=== PATIENT | male | born 1955 | race Caucasian/White ===

== ENCOUNTER → 2020-01-13 14:51 | Outpatient (BNVA) | payer OTHER, SELFPAY | PROVIDERS: PCP Internal Medicine; Visit Provider Internal Medicine Gastroenterology | DX: K58.9 Irritable bowel syndrome, unspecified (principal); K21.9 Gastro-esophageal reflux disease without esophagitis; K59.09 Other constipation; R11.0 Nausea; R63.4 Abnormal weight loss | CPT/HCPCS: 99212 ==

== ENCOUNTER → 2020-06-07 10:33 | Outpatient (BNVA) | payer OTHER, SELFPAY | PROVIDERS: PCP Internal Medicine; Visit Provider Internal Medicine Gastroenterology ==

== ENCOUNTER 2020-06-18 12:31 | Outpatient (REF) | payer MEDICARE, SELFPAY ==
[2020-06-18 13:51] LABS: MANUAL DIFF FLAG NO
[2020-06-18 13:59] LABS: Basophils Absolute Auto 0.1 X10*3/uL (0.0-0.2); Basophils Percent Auto 0.7 % (0-2); Eosinophils Absolute Auto 0.2 X10*3/uL (0.0-0.4); Eosinophils Percent Auto 1.8 % (0-4); Hematocrit 41.7 % (42-52); Imm Gran Abs Auto 0.06 X10*3/uL (0.00-0.03); Imm Gran Pct Auto 0.5 % (0.0-0.4); Lymphocytes Absolute Auto 2.8 X10*3/uL (1.2-4.9); Mean Corpuscular HGB Conc 33.6 g/dl (31.0-36.0); Mean Corpuscular Hemoglobin 29.9 pg (27.0-33.0); Mean Corpuscular Volume 89.1 fL (80-98); Mean Platelet Volume 9.9 fL (9.4-12.4); Monocytes Absolute Auto 0.9 X10*3/uL (0.1-1.2); Monocytes Percent Auto 7.8 % (2-11); Neutrophils Absolute Auto 7.6 X10*3/uL (2.0-8.3); Neutrophils Percent Auto 65.2 % (45-73); Platelet Count 347 X10*3/uL (160-400); Red Blood Count 4.68 X10*6/uL (4.60-5.80); Red Cell Distribution Width 12.5 % (11.0-16.0); White Blood Count 11.6 X10*3/uL (4.8-10.8)
[2020-06-18 14:15] LABS: Alanine Aminotransferase 16 U/L (0-40); Albumin Level 4.3 g/dL (3.5-5.0); Alkaline Phosphatase 96 U/L (39-117); Anion Gap 14 (12-20); Aspartate Amino Transferase 15 U/L (5-37); Bilirubin Total 0.3 mg/dL (0.0-1.0); Blood Urea Nitrogen 10 mg/dL (9-16); Calcium 9.5 mg/dL (8.4-10.2); Carbon Dioxide 26 mmol/L (22-29); Chloride 103 mmol/L (96-108); Estimated Glomerular Filt Rate > 60; Glucose Fasting 144 mg/dL (60-99); Lipase 20 U/L (8-78); Potassium 4.4 mmol/L (3.3-5.1); Sodium 139 mmol/L (135-145)
[2020-06-18 14:37] LABS: Ferritin 77 ng/mL (20-250)
== END 2020-06-18 12:32 | disposition home or self-care (01) ==
LOC: HO.10HDL 12:31
PROVIDERS: Visit Provider Internal Medicine Gastroenterology
DX: D64.9 Anemia, unspecified (principal)
CPT/HCPCS: 36415; 80053; 82728; 83690; 85025

== ENCOUNTER 2020-07-25 12:04 | Outpatient (REF) | payer MEDICARE, MEDICAID, SELFPAY ==
[2020-07-25 13:57] LABS: MANUAL DIFF FLAG NO
[2020-07-25 14:05] LABS: Basophils Absolute Auto 0.1 X10*3/uL (0.0-0.2); Basophils Percent Auto 0.6 % (0-2); Eosinophils Absolute Auto 0.2 X10*3/uL (0.0-0.4); Eosinophils Percent Auto 1.8 % (0-4); Hematocrit 47.4 % (42-52); Hemoglobin 15.4 g/dl (14.0-18.0); Imm Gran Abs Auto 0.04 X10*3/uL (0.00-0.03); Imm Gran Pct Auto 0.4 % (0.0-0.4); Lymphocytes Absolute Auto 2.3 X10*3/uL (1.2-4.9); Lymphocytes Percent Auto 23.6 % (20-40); Mean Corpuscular HGB Conc 32.5 g/dl (31.0-36.0); Mean Corpuscular Hemoglobin 29.6 pg (27.0-33.0); Mean Corpuscular Volume 91.2 fL (80-98); Mean Platelet Volume 9.9 fL (9.4-12.4); Monocytes Absolute Auto 0.7 X10*3/uL (0.1-1.2); Neutrophils Absolute Auto 6.5 X10*3/uL (2.0-8.3); Neutrophils Percent Auto 66.6 % (45-73); Platelet Count 324 X10*3/uL (160-400); Red Cell Distribution Width 13.3 % (11.0-16.0); White Blood Count 9.7 X10*3/uL (4.8-10.8)
[2020-07-25 14:26] LABS: Estimated Average Glucose 194 mg/dL; Hemoglobin A1c % 8.4 %
[2020-07-25 14:35] LABS: Alanine Aminotransferase 13 U/L (0-40); Albumin Level 4.6 g/dL (3.5-5.0); Alkaline Phosphatase 94 U/L (39-117); Anion Gap 16 (12-20); Aspartate Amino Transferase 12 U/L (5-37); Bilirubin Total 0.4 mg/dL (0.0-1.0); Blood Urea Nitrogen 14 mg/dL (9-16); Calcium 10.3 mg/dL (8.4-10.2); Carbon Dioxide 26 mmol/L (22-29); Chloride 102 mmol/L (96-108); Cholesterol 192 mg/dL; Estimated Glomerular Filt Rate > 60; Glucose Random 143 mg/dL (60-115); HDL Cholesterol 32 mg/dL; LDL Cholesterol Calculated 118 mg/dl; Potassium 4.4 mmol/L (3.3-5.1); Sodium 140 mmol/L (135-145); Total Protein 7.3 g/dL (6.5-8.0); Triglycerides 214 mg/dL
[2020-07-25 14:44] LABS: Creatinine Urine 211.15 mg/dL; Microalbum/Creatinine Ratio Ur 4.7 ug/mg cr
[2020-07-25 14:55] LABS: Folate 12.5 ng/mL (> or = 4.0); Free T4 (Free Thyroxine) 1.02 ng/dL (0.71-1.85); Prostate Specific Antigen Scr 1.08 ng/mL (<0.05-4.0); Thyroid Stimulating Hormone 0.55 uIU/mL (0.32-4.0); Vitamin B12 430 pg/mL (200-900)
== END 2020-07-25 12:05 | disposition home or self-care (01) ==
LOC: HO.10HDL 12:04
PROVIDERS: Visit Provider Internal Medicine
DX: Z12.5 Encounter for screening for malignant neoplasm of prostate (principal); E11.65 Type 2 diabetes mellitus with hyperglycemia; N40.0 Benign prostatic hyperplasia without lower urinary tract symptoms; E78.00 Pure hypercholesterolemia, unspecified
CPT/HCPCS: 36415; 80053; 80061; 82043; 82607; 82746; 83036; 84153; 84439; 84443; 85025

== ENCOUNTER → 2020-08-30 09:44 | Outpatient (BNVA) | payer MEDICARE, MEDICAID, SELFPAY | PROVIDERS: PCP Internal Medicine; Visit Provider Internal Medicine Gastroenterology | DX: Z13.89 Encounter for screening for other disorder (principal) | CPT/HCPCS: Q3014 ==

== ENCOUNTER → 2020-10-29 10:27 | Outpatient (BNVA) | payer MEDICARE, MEDICAID, SELFPAY | PROVIDERS: PCP Internal Medicine; Visit Provider Internal Medicine Gastroenterology | DX: K59.09 Other constipation (principal); K21.9 Gastro-esophageal reflux disease without esophagitis; K58.9 Irritable bowel syndrome, unspecified; D64.9 Anemia, unspecified; R63.4 Abnormal weight loss; Z86.010 Personal history of colon polyps | CPT/HCPCS: Q3014 ==

== ENCOUNTER 2021-02-05 14:30 | Emergency (ER) | payer MEDICARE, MEDICAID, SELFPAY ==
--- NOTE | ~2021-02-05 | CT_ITS ---
EXAMINATION: CT ABDOMEN AND PELVIS WITHOUT CONTRAST CLINICAL INFORMATION: Chronic abdominal pain, diarrhea, rule out colitis COMPARISON: 09/14/2019 TECHNIQUE: Multidetector volumetric imaging was performed from the superior aspect of the liver through the pubic symphysis. Sagittal and coronal reformatted images were obtained on the technologist's workstation. This CT examination was performed using dose optimization techniques as appropriate, variously including the following: *Automated exposure control *Adjustment of mA and/or kV according to patient size (this includes techniques or standardized protocols for targeted exams where dose is matched to indication/reason for exam; i.e. extremities or head) *Use of iterative reconstruction technique DLP: 1118 mGy-cm FINDINGS: LUNG BASES: The visualized lung bases are unremarkable. Coronary artery calcifications are present. LIVER, GALLBLADDER, AND BILIARY TREE: The liver is normal in size, shape, and attenuation. No focal hepatic lesion or biliary ductal dilatation is present. Patient is status post cholecystectomy. PANCREAS: Unremarkable. SPLEEN: Unremarkable. ADRENAL GLANDS: Unremarkable. KIDNEYS AND URETERS: The kidneys are normal in size, shape, and attenuation. No hydronephrosis, hydroureter, or calculi seen. Redemonstrated left renal cyst; no follow-up recommended. BLADDER: Unremarkable. GASTROINTESTINAL TRACT: Colonic diverticulosis is noted. The small and large bowel are otherwise unremarkable without evidence of obstruction or wall thickening. The appendix is unremarkable. No free fluid or free air is seen. ABDOMINAL WALL: No significant hernia is appreciated. LYMPH NODES: Normal. VASCULAR: There is atherosclerotic calcification along the aorta and iliac arteries. PELVIC VISCERA: Unremarkable. OSSEOUS STRUCTURES: Multilevel degenerative changes are present, including facet arthropathy of the lumbar spine. CT/CT abdomen pelvis wo con IMPRESSION: 1. No acute findings identified in the abdomen/pelvis. No evidence of colitis. 2. Coronary artery calcifications. Correlation with cardiac risk factors is recommended.
[2021-02-05 14:39] VITALS: BP 136/76; PULSE 98; O2SAT 98
[2021-02-05 16:13] VITALS: BP 111/72; PULSE 110; RESP 18; TEMP 36.8; O2SAT 95; BMI 38.3
[2021-02-05 18:33] LABS: MANUAL DIFF FLAG NO
[2021-02-05 18:38] LABS: Appearance Urine CLEAR; Basophils Absolute Auto 0.1 X10*3/uL (0.0-0.2); Basophils Percent Auto 0.5 % (0-2); Color Urine YELLOW; Eosinophils Absolute Auto 0.1 X10*3/uL (0.0-0.4); Eosinophils Percent Auto 0.6 % (0-4); Glucose Urine UA 500 MG/DL (NEG); Hematocrit 42.7 % (42.0-52.0); Hemoglobin 14.7 g/dl (14.0-18.0); Imm Gran Abs Auto 0.04 X10*3/uL (0.00-0.03); Imm Gran Pct Auto 0.4 % (0.0-0.4); Leukocyte Esterase Urine NEG (NEG); Lymphocytes Absolute Auto 2.2 X10*3/uL (1.2-4.9); Lymphocytes Percent Auto 22.4 % (20-40); Mean Corpuscular HGB Conc 34.4 g/dl (31.0-36.0); Mean Corpuscular Hemoglobin 30.5 pg (27.0-33.0); Mean Corpuscular Volume 88.6 fL (80.0-98.0); Mean Platelet Volume 9.7 fL (9.4-12.4); Monocytes Absolute Auto 0.8 X10*3/uL (0.1-1.2); Neutrophils Absolute Auto 6.6 x10*3/uL (2.0-8.3); Neutrophils Percent Auto 68.1 % (45-73); Nitrite Urine NEG (NEG); Platelet Count 310 X10*3/uL (160-400); Red Blood Count 4.82 X10*6/uL (4.60-5.80); Red Cell Distribution Width 12.5 % (11.0-16.0); Urine Blood NEG (NEG); Urine Ketones NEG (NEG); Urine Protein NEG (NEG-TRACE); White Blood Count 9.7 X10*3/uL (4.8-10.8)
[2021-02-05 18:50] LABS: Alanine Aminotransferase 24 U/L (0-40); Albumin Level 4.4 g/dL (3.5-5.0); Alkaline Phosphatase 91 U/L (39-117); Anion Gap 15 (12-20); Aspartate Amino Transferase 18 U/L (5-37); Bilirubin Total 0.5 mg/dL (0.0-1.0); Blood Urea Nitrogen 16 mg/dL (9-16); Carbon Dioxide 23 mmol/L (22-29); Chloride 102 mmol/L (96-108); Creatinine Clr Calc Pharmacy 90.8; Estimated Glomerular Filt Rate > 60; Glucose Random 208 mg/dL (60-115); Lipase 16 U/L (8-78); Potassium 4.2 mmol/L (3.3-5.1); Sodium 136 mmol/L (135-145); Total Protein 7.1 g/dL (6.5-8.0)
[2021-02-05 19:09] LABS: COVID-19 Test Negative (Negative)
[2021-02-05 21:27] VITALS: BP 130/79; PULSE 91; RESP 14; TEMP 36.3; O2SAT 96
[2021-02-05 21:45] LABS: Glucose, Whole Blood 139 mg/dL (60-115)
--- NOTE | 2021-02-06 01:22 | PC.NURSE ---
PT TO [facility]13 WITH C/O NAUSEA AND YELLOW COLORED STOOL. PT RATING PAIN TO LOWER ABD PAIN AND LOWER BACK PAIN WHICH STARTED 2 MONTHS AGO. AT BEDSIDE WITH PT. LABS OBTAINED WHILE PT IN WR. PT AWAITING FOR FURTHER ORDERS.
--- NOTE | 2021-02-06 01:28 | ED.NAVMDI ---
HPI - Nausea/Vomiting/Diarrhea General Chief complaint: Nausea/Vomiting/Diarrhea Stated complaint: ABD PAIN Time Seen by Provider: 02/06/21 01:20 Source: patient Mode of arrival: ambulatory Limitations: no limitations History of Present Illness HPI Narrative: 65-year-old male came in for evaluation of chronic nausea and nonbloody watery diarrhea. Patient has been evaluated by GI, patient upper and lower endoscopies done last year showed mild gastritis and 10 benign colonic polyps were removed. Otherwise unremarkable studies, patient declined any recent use of antibiotics, no recent travel, no exposure to sick contact. Patient is homeless living at a hotel but declined any recent exposure to bad food. Patient also is complaining of chronic back pain for many years, patient declined any recent trauma or heavy lifting. No fever, no chills. Patient also is complaining of enlarged prostate. Patient was instructed to follow up with his doctors for his chronic conditions. Related Data Previous Rx's Medication Instructions Recorded sennosides 8.6 mg-docusate sodium 1 - 2 tab PO BEDTIME PRN #60 ea 02/28/20 50 mg tablet (Senna Plus) pantoprazole 40 mg tablet,delayed 40 mg PO BID #60 tab 05/13/20 release tamsulosin 0.4 mg capsule 0.4 mg PO DAILY 90 Days #90 cap 05/14/20 lubiprostone 8 mcg capsule 8 mcg PO BID 30 Days #60 cap 06/18/20 (Amitiza) pioglitazone 30 mg tablet 30 mg PO DAILY #90 tab 07/14/20 blood sugar diagnostic (FreeStyle #100 ea 07/16/20 Lite Strips) blood-glucose meter (FreeStyle #1 ea 07/16/20 Lite Meter) lancets 28 gauge (FreeStyle #100 ea 07/16/20 Lancets) atorvastatin 80 mg tablet 80 mg PO DAILY 90 Days #90 tab 08/27/20 semaglutide (Ozempic) 0.25 mg (0.2 mL) SUBCUT QWEEK #1.5 08/27/20 ml bisacodyl 5 mg tablet,delayed 10 mg PO BEDTIME 2 Days #4 tab 08/30/20 release (Dulcolax (bisacodyl)) polyethylene glycol 3350 17 17 g PO BID 7 Days #238 g 08/30/20 gram/dose oral powder (Miralax) famotidine 40 mg tablet 40 mg PO BEDTIME #30 tab 10/15/20 lkazbx-cwiwrvlq-ocmiejh 1 cap PO TID 30 Days #90 cap 11/26/20 3,000-10,000-14,000 unit capsule,delayed rel (Zenpep) dicyclomine 20 mg tablet 20 mg PO .4 times a day PRN 30 11/27/20 Days #120 tab glimepiride 4 mg tablet 4 mg PO QAM #90 tab 11/28/20 lisinopril 30 mg tablet 30 mg PO DAILY 90 Days #90 tab 12/10/20 promethazine 25 mg tablet 25 mg PO TID PRN 30 Days #30 tab 12/10/20 docusate sodium 100 mg capsule 100 mg PO BID #180 cap 12/12/20 (Colace) lorazepam 0.5 mg tablet 0.5 mg PO BID PRN 30 Days #60 tab 12/26/20 polyethylene glycol 3350 17 238 g PO ONCE 1 Days #238 g 01/08/21 gram/dose oral powder (Miralax) psyllium husk 3.4 gram/5.4 gram 1 tbsp PO BID #660 g 01/19/21 oral powder (Metamucil) cholecalciferol (vitamin D3) 25 25 mcg PO DAILY 30 Days #30 cap 01/28/21 mcg (1,000 unit) capsule Allergies Allergy/AdvReac Type Severity Reaction Status Date / Time Iodinated Contrast Media Allergy Intermediate HIVES Verified 02/05/21 16:13 [IV CONTRAST] aspirin [From Percodan] Allergy Unknown Unknown Verified 02/05/21 16:13 codeine [CODEINE] Allergy Unknown DIFFICULTY Verified 02/05/21 16:13 BREATHING metformin Allergy Unknown Diarrhea Verified 02/05/21 16:13 oxycodone [From PERCOCET] Allergy Unknown DIFF Verified 02/05/21 16:13 BREATHING Penicillins [PENICILLINS] Allergy Unknown DIFFICULTY Verified 02/05/21 16:13 BREATHING Review of Systems Review of Systems: All other systems are reviewed and are negative Constitutional: Reports as per HPI and Reports no additional constitutional complaints Eyes: Reports as per HPI and Reports no additional eye complaints Reports system reviewed and no additional complaints, except as documented Cardiovascular: Reports as per HPI and Reports no additional cardiovascular complaints Respiratory: Reports as per HPI and Reports no additional respiratory complaints Gastrointestinal: Reports as per HPI and Reports no additional gastrointestinal complaints Genitourinary: Reports no additional female genitourinary complaints Musculoskeletal: Reports no additional musculoskeletal complaints Skin/Breast: Reports system reviewed and no additional complaints, except as docu Psychiatric: Reports no additional psychiatric complaints Endocrine: Reports no additional endocrine complaints Hematologic/Lymphatic: Reports no additional hematologic/lymphatic complaints Allergic/Immunologic: Reports no additional allergic/immunologic complaints Reports system reviewed and no additional complaints, except as documented and Reports Abnormal speech present COUNT INCLUDES THE [facility] Past Medical History Medical History Anxiety and depression Bilateral arm fractures BPH (benign prostatic hyperplasia) Chronic constipation History of colon polyps History of drug abuse Hypercholesterolemia Hypertension Obesity (BMI 30-39.9) Pulmonary nodule, right Type 2 diabetes mellitus with hyperglycemia Surgical History Hx of colonoscopy (07/06/12) Hx of esophagogastroduodenoscopy (11/18/11) S/P cholecystectomy Family History Family History Father Kidney tumor Heart attack Mother Kidney failure Lung cancer Diabetes CHF (congestive heart failure) Maternal Grandmother Gallbladder gangrene Sister Arthritis High blood pressure High cholesterol Cirrhosis of liver Sister No problems noted. Brother Heart attack High cholesterol Sister CHF (congestive heart failure) Diabetes Social History Social History Household Members: Other Housing: Homeless Housing Other:: Resides at [facility] Alcohol intake: former Patient Tobacco Use Status: Current everyday Tobacco user Tobacco use type: Cigarette Cigarette Packs Per Day: 1 Cigarettes Per Day: 20.0 e-Cigarette/Vaping Use: Never Used Second Hand Smoke Exposure: No Advance Directives: No Advance Directives Information Provided: Yes service: No Current occupational status: retired Physical Exam Vital Signs: Vital Signs: Last Vital Signs Temp 97.4 F 02/05/21 21:27 Pulse 91 02/05/21 21:27 Resp 14 02/05/21 21:27 BP 130/79 02/05/21 21:27 Pulse Ox 96 02/05/21 21:27 Body Mass Index 38.3 vital signs have been reviewed as appeared to be correct. Blood pressure normal. Heart rate normal. Respiration rate normal. Temperature normal. Oxygen saturation normal. Appearance: Alert. Oriented X3. No acute distress. Head: Normal external exam. Normocephalic. Atraumatic. No Steven signs noted. No raccoon eyes noted Eyes: PERRLA. EOMI. Conjunctiva and sclera normal. Eyelids normal. ENT: TM's Normal. Pharynx normal. Uvula midline. Moist mucous membranes. No trismus noted. No drooling noted. No muffled voice noted. Neck: Normal inspection. Neck supple. FROM. No adenopathy. Thyroid Normal. No meningeal signs. No neck mass noted. CVS: Normal heart rate and rhythm. Heart sound normal. No murmurs noted. Pulses normal throughout. Respiratory: No respiratory distress. Painless inspiration. Breath sounds normal. No wheezes/rales/rhonchi noted. Chest nontender. No accessory muscle usage noted or decreased air movement noted. Abdomen: Soft and nontender. Bowel sounds normal in all 4 quadrants. No distention noted. No organomegaly noted. No visible injury noted. Back: No CVA tenderness. Full range of motion noted. Skin: Skin warm and dry. Normal skin color. Normal skin turgor. No rashes/lesions/lacerations noted. Extremities: No lower extremity edema. Extremities exhibit normal range of motion. Extremities nontender. Neuro: Oriented X 3. Cranial nerve exam: II-XII are grossly intact No motor deficit. No sensory deficit. Reflexes normal. Course Course Course Narrative: assessment and plan. 65-year-old male came in for multiple medical chronic conditions, patient had a CT scan of the abdomen pelvis which was unremarkable. Labs are unremarkable. Patient was reassured, patient was instructed to follow up with his PCP /GI /his doctors To address his chronic issues. MDM - Nausea/Vomiting/Diarrhea Medical Records Attestation: I reviewed the patient's medical records. Lab Data Attestation: I reviewed the patient's lab results. Result diagrams: 02/05/21 18:27 02/05/21 18:27 Labs: Lab Results 02/05/21 02/05/21 02/05/21 Range/Units 18:27 18:27 18:27 WBC 9.7 (4.8-10.8) X10*3/uL RBC 4.82 (4.60-5.80) X10*6/uL Hgb 14.7 (14.0-18.0) g/dl Hct 42.7 (42.0-52.0) % MCV 88.6 (80.0-98.0) fL MCH 30.5 (27.0-33.0) pg MCHC 34.4 (31.0-36.0) g/dl RDW 12.5 (11.0-16.0) % Plt Count 310 (160-400) X10*3/uL MPV 9.7 (9.4-12.4) fL Immature Gran % (Auto) 0.4 (0.0-0.4) % Neut % (Auto) 68.1 (45-73) % Lymph % (Auto) 22.4 (20-40) % [place] % (Auto) 8.0 (2-11) % Eos % (Auto) 0.6 (0-4) % Baso % (Auto) 0.5 (0-2) % Lymph # (Auto) 2.2 (1.2-4.9) X10*3/uL [place] # (Auto) 0.8 (0.1-1.2) X10*3/uL Eos # (Auto) 0.1 (0.0-0.4) X10*3/uL Baso # (Auto) 0.1 (0.0-0.2) X10*3/uL Abs Immat Gran (auto) 0.04 H (0.00-0.03) X10*3/uL Absolute Neuts (auto) 6.6 (2.0-8.3) x10*3/uL Absolute Nucleated RBC 0.000 (0.0-0.012) X10*3/uL Nucleated RBC % (auto) 0.0 (0.0-0.2) /100WBC Sodium 136 (135-145) mmol/L Potassium 4.2 (3.3-5.1) mmol/L Chloride 102 (96-108) mmol/L Carbon Dioxide 23 (22-29) mmol/L Anion Gap 15 (12-20) BUN 16 (9-16) mg/dL Creatinine 1.09 (0.5-1.4) mg/dL Estim Creat Clear Calc 90.8 Estimated GFR > 60 POC Glucose (60-115) mg/dL Random Glucose 208 H D (60-115) mg/dL Calcium 10.0 (8.4-10.2) mg/dL Total Bilirubin 0.5 (0.0-1.0) mg/dL AST 18 D (5-37) U/L ALT 24 (0-40) U/L Alkaline Phosphatase 91 (39-117) U/L Total Protein 7.1 (6.5-8.0) g/dL Albumin 4.4 (3.5-5.0) g/dL Lipase 16 (8-78) U/L Prostate Specific Ag 1.00 (<0.05-4.0) ng/mL Urine Color Urine Appearance Urine pH (5.0-8.0) Ur Specific [place] (1.005-1.025) Urine Protein (NEG-TRACE) MG/DL Urine Glucose (UA) (NEG) MG/DL Urine Ketones (NEG) MG/DL Urine Blood (NEG) Urine Nitrite (NEG) Ur Leukocyte Esterase (NEG) COVID-19 (CANDICE) Negative (Negative) COVID-19 Clin Com See Note 02/05/21 02/05/21 Range/Units 18:27 21:39 WBC (4.8-10.8) X10*3/uL RBC (4.60-5.80) X10*6/uL Hgb (14.0-18.0) g/dl Hct (42.0-52.0) % MCV (80.0-98.0) fL MCH (27.0-33.0) pg MCHC (31.0-36.0) g/dl RDW (11.0-16.0) % Plt Count (160-400) X10*3/uL MPV (9.4-12.4) fL Immature Gran % (Auto) (0.0-0.4) % Neut % (Auto) (45-73) % Lymph % (Auto) (20-40) % [place] % (Auto) (2-11) % Eos % (Auto) (0-4) % Baso % (Auto) (0-2) % Lymph # (Auto) (1.2-4.9) X10*3/uL [place] # (Auto) (0.1-1.2) X10*3/uL Eos # (Auto) (0.0-0.4) X10*3/uL Baso # (Auto) (0.0-0.2) X10*3/uL Abs Immat Gran (auto) (0.00-0.03) X10*3/uL Absolute Neuts (auto) (2.0-8.3) x10*3/uL Absolute Nucleated RBC (0.0-0.012) X10*3/uL Nucleated RBC % (auto) (0.0-0.2) /100WBC Sodium (135-145) mmol/L Potassium (3.3-5.1) mmol/L Chloride (96-108) mmol/L Carbon Dioxide (22-29) mmol/L Anion Gap (12-20) BUN (9-16) mg/dL Creatinine (0.5-1.4) mg/dL Estim Creat Clear Calc Estimated GFR POC Glucose 139 H (60-115) mg/dL Random Glucose (60-115) mg/dL Calcium (8.4-10.2) mg/dL Total Bilirubin (0.0-1.0) mg/dL AST (5-37) U/L ALT (0-40) U/L Alkaline Phosphatase (39-117) U/L Total Protein (6.5-8.0) g/dL Albumin (3.5-5.0) g/dL Lipase (8-78) U/L Prostate Specific Ag (<0.05-4.0) ng/mL Urine Color YELLOW Urine Appearance CLEAR Urine pH 6.0 (5.0-8.0) Ur Specific [place] 1.020 (1.005-1.025) Urine Protein NEG (NEG-TRACE) MG/DL Urine Glucose (UA) 500 H (NEG) MG/DL Urine Ketones NEG (NEG) MG/DL Urine Blood NEG (NEG) Urine Nitrite NEG (NEG) Ur Leukocyte Esterase NEG (NEG) COVID-19 (CANDICE) (Negative) COVID-19 Clin Com Imaging Data CT scan - abdomen: Radiologist's impression: 1.? No acute findings identified in the abdomen/pelvis. No evidence of colitis. 2.? Coronary artery calcifications. Correlation with cardiac risk factors is recommended. Discharge Plan Discharge Clinical Impression: Chronic diarrhea, Chronic back pain Patient Disposition: Home, Self-Care Instructions: Back Pain (ED) Additional Instructions: you need to call your PCP/ web marketing specialist/ urologist doctors and make an appointment to address all your chronic Health conditions. Prescriptions: No Action sennosides-docusate sodium [Senna Plus] 8.6-50 mg tablet 1 - 2 tab PO BEDTIME PRN (Reason: constipation) Qty: 60 RF: 5 pantoprazole 40 mg tablet,delayed release (DR/EC) 40 mg PO BID Qty: 60 RF: 5 tamsulosin 0.4 mg capsule 0.4 mg PO DAILY 90 Days Qty: 90 RF: 2 lubiprostone [Amitiza] 8 mcg capsule 8 mcg PO BID 30 Days Qty: 60 RF: 3 pioglitazone 30 mg tablet 30 mg PO DAILY Qty: 90 RF: 1 famotidine 40 mg tablet 40 mg PO BEDTIME Qty: 30 RF: 3 Zenpep 3,000-10,000 -14,000-unit capsule,delayed release(DR/EC) 1 cap PO TID 30 Days Qty: 90 RF: 3 dicyclomine 20 mg tablet 20 mg PO .4 times a day PRN30 Days Qty: 120 RF: 2 glimepiride 4 mg tablet 4 mg PO QAM Qty: 90 RF: 2 docusate sodium [Colace] 100 mg capsule 100 mg PO BID Qty: 180 RF: 2 lorazepam 0.5 mg tablet 0.5 mg PO BID PRN (Reason: anxiety) 30 Days Qty: 60 RF: 1 polyethylene glycol 3350 [Miralax] 17 gram/dose powder 238 g PO ONCE 1 Days Qty: 238 RF: 0 Metamucil 3.4 gram/5.4 gram powder 1 tbsp PO BID Qty: 660 RF: 1 cholecalciferol (vitamin D3) 25 mcg (1,000 unit) capsule 25 mcg PO DAILY 30 Days Qty: 30 RF: 3 atorvastatin 80 mg tablet 80 mg PO DAILY 90 Days Qty: 90 RF: 3 Ozempic 0.25 mg or 0.5 mg(2 mg/1.5 mL) pen injector 0.25 mg subcut QWEEK Qty: 1.5 RF: 1 (DME) FreeStyle Lite Strips Strip See Rx Instructions .ROUTE .MEDSUPPLY Qty: 100 RF: 3 (DME) blood-glucose meter [FreeStyle Lite Meter] Kit See Rx Instructions .ROUTE .MEDSUPPLY Qty: 1 RF: 0 (DME) lancets [FreeStyle Lancets] 28 gauge misc See Rx Instructions .ROUTE .MEDSUPPLY Qty: 100 RF: 3 lisinopril 30 mg tablet 30 mg PO DAILY 90 Days Qty: 90 RF: 2 promethazine 25 mg tablet 25 mg PO TID PRN (Reason: nausea and vomiting) 30 Days Qty: 30 RF: 0 polyethylene glycol 3350 [Miralax] 17 gram/dose powder 17 g PO BID 7 Days Qty: 238 RF: 1 bisacodyl [Dulcolax (bisacodyl)] 5 mg tablet,delayed release (DR/EC) 10 mg PO BEDTIME 2 Days Qty: 4 RF: 0
--- NOTE | 2021-02-06 02:28 | PC.NURSE ---
ADDED A PSA TO PT'S LABS. LABS NOTIFIED AND HAS ENOUGH BLOOD FOR LAB TEST.
== END 2021-02-06 04:19 | disposition home or self-care (01) ==
PROVIDERS: Emergency Provider Emergency Medicine
DX: R10.9 Unspecified abdominal pain (principal); R11.2 Nausea with vomiting, unspecified; M54.50 Low back pain, unspecified; R19.7 Diarrhea, unspecified; F17.210 Nicotine dependence, cigarettes, uncomplicated; Z20.822 Contact with and (suspected) exposure to COVID-19; Z79.899 Other long term (current) drug therapy; Z71.6 Tobacco abuse counseling
CPT/HCPCS: 36415; 74176; 80053; 81003; 82947; 83690; 84153; 85025; 87635; 99283; 99284

== ENCOUNTER → 2021-02-14 14:57 | Outpatient (BNVA) | payer MEDICARE, MEDICAID, SELFPAY | PROVIDERS: Visit Provider Internal Medicine Gastroenterology | DX: K58.9 Irritable bowel syndrome, unspecified (principal); K21.9 Gastro-esophageal reflux disease without esophagitis; K59.09 Other constipation; R63.4 Abnormal weight loss; Z86.010 Personal history of colon polyps | CPT/HCPCS: 99212 ==

== ENCOUNTER 2021-05-16 11:19 | Outpatient (REF) | payer OTHER, SELFPAY ==
[2021-05-16 13:42] LABS: MANUAL DIFF FLAG NO
[2021-05-16 13:47] LABS: Basophils Absolute Auto 0.1 X10*3/uL (0.0-0.2); Basophils Percent Auto 0.8 % (0-2); Eosinophils Absolute Auto 0.2 X10*3/uL (0.0-0.4); Eosinophils Percent Auto 3.1 % (0-4); Hemoglobin 13.4 g/dl (14.0-18.0); Imm Gran Abs Auto 0.02 X10*3/uL (0.00-0.03); Imm Gran Pct Auto 0.3 % (0.0-0.4); Lymphocytes Absolute Auto 2.1 X10*3/uL (1.2-4.9); Lymphocytes Percent Auto 27.7 % (20-40); Mean Corpuscular HGB Conc 31.9 g/dl (31.0-36.0); Mean Corpuscular Hemoglobin 28.8 pg (27.0-33.0); Mean Corpuscular Volume 90.1 fL (80.0-98.0); Mean Platelet Volume 9.7 fL (9.4-12.4); Monocytes Absolute Auto 0.6 X10*3/uL (0.1-1.2); Monocytes Percent Auto 7.8 % (2-11); Neutrophils Absolute Auto 4.5 x10*3/uL (2.0-8.3); Neutrophils Percent Auto 60.3 % (45-73); Platelet Count 347 X10*3/uL (160-400); Red Blood Count 4.66 X10*6/uL (4.60-5.80); Red Cell Distribution Width 14.6 % (11.0-16.0); White Blood Count 7.4 X10*3/uL (4.8-10.8)
[2021-05-16 13:51] LABS: Appearance Urine CLEAR; Color Urine YELLOW; Glucose Urine UA NEG (NEG); Leukocyte Esterase Urine NEG (NEG); Nitrite Urine NEG (NEG); Specific Gravity - Urine >= 1.030 (1.005-1.025); Urine Blood NEG (NEG); Urine Ketones NEG (NEG); Urine Protein NEG (NEG-TRACE)
[2021-05-16 13:57] LABS: Alanine Aminotransferase 14 U/L (0-40); Albumin Level 4.2 g/dL (3.5-5.0); Alkaline Phosphatase 83 U/L (39-117); Anion Gap 14 (12-20); Aspartate Amino Transferase 14 U/L (5-37); Bilirubin Total 0.4 mg/dL (0.0-1.0); Blood Urea Nitrogen 15 mg/dL (9-16); Calcium 9.7 mg/dL (8.4-10.2); Carbon Dioxide 27 mmol/L (22-29); Chloride 105 mmol/L (96-108); Cholesterol 177 mg/dL; Estimated Glomerular Filt Rate > 60; Glucose Random 134 mg/dL (60-115); HDL Cholesterol 42 mg/dL; LDL Cholesterol Calculated 107 mg/dl; Magnesium 1.5 mg/dL (1.6-2.6); Phosphorus 3.3 mg/dL (2.7-4.5); Potassium 4.6 mmol/L (3.3-5.1); Sodium 141 mmol/L (135-145); Total Protein 6.8 g/dL (6.5-8.0); Triglycerides 141 mg/dL
[2021-05-16 14:04] LABS: Estimated Average Glucose 163 mg/dL; Hemoglobin A1c % 7.3 %
[2021-05-16 14:18] LABS: Creatinine Urine 150.86 mg/dL
[2021-05-16 14:20] LABS: Thyroid Stimulating Hormone 0.62 uIU/mL (0.32-4.0)
[2021-05-16 14:23] LABS: Free T4 (Free Thyroxine) 0.84 ng/dL (0.71-1.85)
== END 2021-05-16 11:20 | disposition home or self-care (01) ==
LOC: HO.10HDL 11:19
PROVIDERS: Nurse Practitioner Family; Visit Provider Internal Medicine
DX: E78.00 Pure hypercholesterolemia, unspecified (principal); E11.65 Type 2 diabetes mellitus with hyperglycemia; N40.0 Benign prostatic hyperplasia without lower urinary tract symptoms; I10 Essential (primary) hypertension; Z86.16 Personal history of COVID-19; Z12.5 Encounter for screening for malignant neoplasm of prostate
CPT/HCPCS: 36415; 80053; 80061; 81003; 83036; 83735; 84100; 84153; 84439; 84443; 85025

== ENCOUNTER 2021-06-17 10:59 | Day surgery (SDC) | payer OTHER, SELFPAY ==
[2021-06-13 16:35] VITALS: BMI 38.3
--- NOTE | 2021-06-14 13:15 | P.CONAN_ITS ---
Documented by User: Melba Mcbride NP 06/14/21 13:17 HPI - Anesthesia Eval Consult details Narrative: 65yo M for Upper Endoscopy and Colonoscopy *Multiple Med Allergies* [facility] Active Problems Active Problems: All Active Problems (Updated 05/19/21 @ 23:22 by Randi De Luna, [facility]) Headache (Acute) History of COVID-19 (Acute ~02/27/21) Generalized anxiety disorder (Acute) Homeless (Acute) Vitamin D deficiency (Acute) Anemia (Acute) Flank pain (Acute) History of colon polyps (Acute) BPH (benign prostatic hyperplasia) (Acute) Hypercholesterolemia (Acute) Type 2 diabetes mellitus with hyperglycemia (Acute) Obesity (BMI 30-39.9) (Acute) Hypertension (Acute) Weight loss, unintentional (Acute) Tobacco abuse (Acute) Low back pain (Acute) Cervical spondylosis (Acute) IBS (irritable bowel syndrome) (Acute) GERD (gastroesophageal reflux disease) (Acute) Chronic constipation (Acute) Past Medical History Medical History Anxiety and depression Bilateral arm fractures BPH (benign prostatic hyperplasia) Chronic constipation History of colon polyps History of drug abuse Hypercholesterolemia Hypertension Obesity (BMI 30-39.9) Pulmonary nodule, right Type 2 diabetes mellitus with hyperglycemia Family History Family History Father Kidney tumor Heart attack Mother Kidney failure Lung cancer Diabetes CHF (congestive heart failure) Maternal Grandmother Gallbladder gangrene Sister Arthritis High blood pressure High cholesterol Cirrhosis of liver Sister No problems noted. Brother Heart attack High cholesterol Sister CHF (congestive heart failure) Diabetes Surgical History Surgical History Hx of colonoscopy (07/06/12) Hx of esophagogastroduodenoscopy (11/18/11) S/P cholecystectomy Social History Social History Household Members: Other Housing: Homeless Housing Other:: Resides at [facility] Alcohol intake: former Patient Tobacco Use Status: Current everyday Tobacco user Tobacco use type: Cigarette Cigarette Packs Per Day: 1 Cigarettes Per Day: 20.0 e-Cigarette/Vaping Use: Never Used Second Hand Smoke Exposure: No Use of substances other than those prescribed or required for medical reasons: No Substance Use Type Other:: former - quit alcohol and drugs in year 1999 Are you DNR?: No Advance Directives: No Advance Directives Information Provided: Yes service: No Current occupational status: retired Cognitive needs: No Hearing needs: No Vision needs: Yes (reading glasses) Meds Allergies Allergy/AdvReac Type Severity Reaction Status Date / Time Iodinated Contrast Media Allergy Intermediate HIVES Verified 05/20/21 16:54 [IV CONTRAST] aspirin [From Percodan] Allergy Unknown Unknown Verified 05/20/21 16:54 codeine [CODEINE] Allergy Unknown DIFFICULTY Verified 05/20/21 16:54 BREATHING metformin Allergy Unknown Diarrhea Verified 05/20/21 16:54 oxycodone [From PERCOCET] Allergy Unknown DIFF Verified 05/20/21 16:54 BREATHING Penicillins [PENICILLINS] Allergy Unknown DIFFICULTY Verified 05/20/21 16:54 BREATHING Exam Exam Date and Time: June 14, 2021 1315 Height,Weight and Vital Signs: Height 5 ft 11 in Weight 124.738 kg Assessment and Plan Assessment Anesthesia Assessment: Chart Reviewed Documented by User: Kaycee Perdomo MD 06/17/21 11:36 [facility] Past Medical History Medical History Anxiety and depression Bilateral arm fractures BPH (benign prostatic hyperplasia) Chronic constipation History of colon polyps History of drug abuse Hypercholesterolemia Hypertension Obesity (BMI 30-39.9) Pulmonary nodule, right Type 2 diabetes mellitus with hyperglycemia Family History Family History Father Kidney tumor Heart attack Mother Kidney failure Lung cancer Diabetes CHF (congestive heart failure) Maternal Grandmother Gallbladder gangrene Sister Arthritis High blood pressure High cholesterol Cirrhosis of liver Sister No problems noted. Brother Heart attack High cholesterol Sister CHF (congestive heart failure) Diabetes Surgical History Surgical History Hx of colonoscopy (07/06/12) Hx of esophagogastroduodenoscopy (11/18/11) S/P cholecystectomy History of Problems with Anesthesia: No Social History Social History Household Members: Other Housing: Homeless Housing Other:: Resides at [facility] Alcohol intake: former Patient Tobacco Use Status: Current everyday Tobacco user Tobacco use type: Cigarette Cigarette Packs Per Day: 1 Cigarettes Per Day: 20.0 e-Cigarette/Vaping Use: Never Used Second Hand Smoke Exposure: No Use of substances other than those prescribed or required for medical reasons: No Substance Use Type Other:: former - quit alcohol and drugs in 1999 Are you DNR?: No Advance Directives: No Advance Directives Information Provided: Yes service: No Current occupational status: retired Cognitive needs: No Hearing needs: No Vision needs: Yes (reading glasses) Meds Allergies Allergy/AdvReac Type Severity Reaction Status Date / Time Iodinated Contrast Media Allergy Intermediate HIVES Verified 05/20/21 16:54 [IV CONTRAST] aspirin [From Percodan] Allergy Unknown Unknown Verified 05/20/21 16:54 codeine [CODEINE] Allergy Unknown DIFFICULTY Verified 05/20/21 16:54 BREATHING metformin Allergy Unknown Diarrhea Verified 05/20/21 16:54 oxycodone [From PERCOCET] Allergy Unknown DIFF Verified 05/20/21 16:54 BREATHING Penicillins [PENICILLINS] Allergy Unknown DIFFICULTY Verified 05/20/21 16:54 BREATHING Exam Airway Mallampati Class: III TM Dist: >3cm Neck ROM: Full Loose/Missing/Broken Teeth: Yes, Upper and Lower Heart: RRR Lungs: CLEAR BUT DISTANT Assessment and Plan Assessment Anesthesia Assessment: Anesthesia Plan Discussed Final Anesthetic Review History of Problems with Anesthesia: No NPO: Yes ASA Class: III Final Preanesthetic Review: Meds/Allgs Chart Reviewed, Consent Obtained/Reviewed and Anes Risks/Benef Reviewed Patient Risk: Intermediate Procedure Risk: Intermediate Anesthetic Plan Anesthetic Plan: MAC: Disposition: Standard PACU
--- NOTE | 2021-06-17 11:07 | MHC.SHP ---
Pre-Procedural Eval Section A Date of Service: 06/17/21 The patient is an INPATIENT: No The History & Physical has been completed within 30 days and I have reviewed it.: No Section B Chief Complaint: reflux disease,hx colonic polyps Details of Present Illness: Colon cancer screening, history of colon polyps, GERD Relevant Family History (Specify if Yes): No Relevant Social History: Tobacco Use Present Medications: see Short Stay Collaborative assessment Medical History: Significant History (Anxiety and depression Bilateral arm fractures BPH (benign prostatic hyperplasia) Chronic constipation History of colon polyps History of drug abuse Hypercholesterolemia Hypertension Obesity (BMI 30-39.9) Pulmonary nodule, right Type 2 diabetes mellitus with hyperglycemia) History of Previous Operations: Relevant previous surgery/procedure and date(s) (Hx of colonoscopy (07/06/12) Hx of esophagogastroduodenoscopy (11/18/11) S/P cholecystectomy) Allergies: Allergies Allergy/AdvReac Type Severity Reaction Status Date / Time Iodinated Contrast Media Allergy Intermediate HIVES Verified 05/20/21 16:54 [IV CONTRAST] aspirin [From Percodan] Allergy Unknown Unknown Verified 05/20/21 16:54 codeine [CODEINE] Allergy Unknown DIFFICULTY Verified 05/20/21 16:54 BREATHING metformin Allergy Unknown Diarrhea Verified 05/20/21 16:54 oxycodone [From PERCOCET] Allergy Unknown DIFF Verified 05/20/21 16:54 BREATHING Penicillins [PENICILLINS] Allergy Unknown DIFFICULTY Verified 05/20/21 16:54 BREATHING Review of Systems Sugical H&P ROS: Negative: Constitution, Cardiovascular and Respiratory and Yes, Specify: Gastrointestinal (constipation) Exam Surgical H&P Exam: Normal: Heart, Normal: Lungs, Normal: Extremities and Normal: Abdomen Plan Diagnosis/Plan: Unchanged I have reviewed the history and physical and performed a pertinent physical examination on my patient. No changes have occurred unless specified.
--- NOTE | 2021-06-17 11:10 | PM.OP ---
Brief Operative Note Date of Service: 06/17/21 Pre-op diagnosis: Colon cancer screening, follow-up of colon polyps, GERD Post-op diagnosis: other (Gastric polyp, duodenal nodule, colon polyps, diverticulosis, hemorrhoids) Procedure: FLEXIBLE TRANSORAL UPPER GASTROINTESTINAL ENDOSCOPY WITH BIOPSIES AND COLONOSCOPY TILL CECUM WITH BIOPSIES AND SNARE POLYPECTOMY UPPER ENDOSCOPY Consent: Indications for the procedure and potential complications of bleeding, perforation, reaction to medications and missed diagnosis were discussed with the patient and informed consent was obtained. Instrument: Olympus GIF H 190 mid size upper endoscope Monitoring: Vital signs and clinical assessment, continuous EKG monitoring, Pulse oximetry, Carbon Dioxide monitoring and blood pressure monitoring were done throughout the procedure. Procedure: The patient was placed in the left lateral decubitis position and pre-procedure medications were administered and a bite block was placed. The endoscope was inserted into the mouth and advanced under direct vision to the third part of duodenum. A careful inspection was made as the upper endoscope was withdrawn including a retroflexed examination of the proximal stomach; Findings and interventions are described below. Findings: Larynx: Normal Esophagus: Tortuous esophagus with increased tertiary contractions without stricture or ring. GE junction at 40 cms. No esophagitis or Hughes's. Stomach: A 3-4 mm benign appearing polyp in the gastric body - biopsied. Two 1 cms calcified benign appearing nodules in the fundus unchanged from last EGD (benign on biopsies obtained during last EGD). Moderate diffuse gastric erythema. Biopsies were obtained. Grade 2 flap valve on retroflexed examination of the cardia. Duodenum: A 7-8 mm benign appearing nodule in the apex of the bulb - biopsied. Normal descending duodenum Intervention: Biopsies as noted above COLONOSCOPY PROCEDURE NOTE Consent: Indications for the procedure and potential complications of bleeding, perforation, reaction to medications and missed diagnosis were discussed with the patient and informed consent was obtained. Instrument: Olympus PCF H 190 L variable stiffness pediatric colonoscope Monitoring: Vital signs and clinical assessment, intermittent blood pressure monitoring, continuous EKG monitoring, Pulse oximetry and Carbon Dioxide monitoring were done throughout the procedure. Colon withdrawl time was 28 minutes. Procedure: The patient was placed in the left lateral decubitis position and pre-procedure medications were administered. After a digital rectal examination of the ano-rectum, the video colonoscope was inserted into the rectum and advanced through the colon to the cecum. The colonoscope was slowly withdrawn in a retrograde panoramic fashion and the colon mucosa was carefully examined including a retroflexed view of the rectum. Findings and interventions are described below. Procedure Difficulty: : Without difficulty Findings: Terminal Ileum: Not evaluated Cecum: Normal Ascending Colon: Three 5-10 mm sessile polyps removed with cold snare and cold biopsy Transverse Colon: Three 5-10 mm sessile polyps removed with cold snare and cold biopsy Descending Colon: Moderate diverticulosis Sigmoid Colon: A 12-15 mm sessile polyp removed with a hot snare. Moderate diverticulosis Rectum: Normal Ano-rectum: Moderate internal hemorrhoids Colon preparation: Good after some irrigation Impression and Post Procedure Diagnosis: Endoscopy Findings: ESOPHAGUS: Tortuous esophagus with increased tertiary contractions without stricture or ring. GE junction at 40 cms. No esophagitis or Hughes's. STOMACH: A 3-4 mm benign appearing polyp in the gastric body - biopsied. Two 1 cms calcified benign appearing nodules in the fundus unchanged from last EGD (benign on biopsies obtained during last EGD). Moderate diffuse gastric erythema. Biopsies were obtained. DUODENUM: A 7-8 mm benign appearing nodule in the apex of the bulb - biopsied. Colonoscopy Findings: Eight small to medium sized polyps removed Moderate diverticulosis seen in the left colon Moderate hemorrhoids on retroflexed exam. Plan: Letter will be sent with biopsy results Repeat Colonoscopy in 2-3 years if polyps are adenomatous and due to a hx of multiple colon polyps. Gastric polyps, colon polyps and diverticulosis handouts were given in the discharge area Surgeon: Yana Nye MD Anesthesia: MAC (Dr Perdomo) Was an Stave Block Splitter used for this Procedure?: Yes Stave Block Splitter: Corina Atkins Estimated blood loss (mL): 0 Pathology: other (A. duodenal nodule B. gastric polyp C. ascending colon polyps (3) D. transverse colon polyps (4) E. sigmoid polyp) Condition: stable Disposition: PACU
--- NOTE | 2021-06-17 11:10 | W.PM.OPN ---
Operative Note Operative Note Date of Service: 06/17/21 Narrative: Pre-op diagnosis: Colon cancer screening, follow-up of colon polyps, GERD Post-op diagnosis:?other (Gastric polyp, duodenal nodule, colon polyps, diverticulosis, hemorrhoids) Procedure: FLEXIBLE TRANSORAL UPPER GASTROINTESTINAL ENDOSCOPY WITH BIOPSIES AND COLONOSCOPY TILL CECUM WITH BIOPSIES AND SNARE POLYPECTOMY UPPER ENDOSCOPY Consent:?Indications for the procedure and potential complications of bleeding, perforation, reaction to medications and missed diagnosis were discussed with the patient and informed consent was obtained. Instrument:?Olympus GIF H 190 mid size upper endoscope Monitoring: Vital signs and clinical assessment, continuous EKG monitoring, Pulse oximetry, Carbon Dioxide monitoring and blood pressure monitoring were done throughout the procedure. Procedure:?The patient was placed in the left lateral decubitis position and pre-procedure medications were administered and a bite block was placed. The endoscope was inserted into the mouth and advanced under direct vision to the third part of duodenum. A careful inspection was made as the upper endoscope was withdrawn including a retroflexed examination of the proximal stomach; Findings and interventions are described below. Findings: Larynx:? Normal Esophagus:?Tortuous esophagus with increased tertiary contractions without stricture or ring. GE junction at 40 cms. No esophagitis or Hughes's. Stomach:?A 3-4 mm benign appearing polyp in the gastric body - biopsied. Two 1 cms calcified benign appearing nodules in the fundus unchanged from last EGD (benign on biopsies obtained during last EGD). Moderate diffuse gastric erythema. Biopsies were obtained. Grade 2 flap valve on retroflexed examination of the cardia. Duodenum:?A 7-8 mm benign appearing nodule in the apex of the bulb - biopsied. Normal descending duodenum Intervention:?Biopsies as noted above COLONOSCOPY PROCEDURE NOTE Consent:?Indications for the procedure and potential complications of bleeding, perforation, reaction to medications and missed diagnosis were discussed with the patient and informed consent was obtained. Instrument:?Olympus PCF H 190 L variable stiffness pediatric colonoscope Monitoring:?Vital signs and clinical assessment, intermittent blood pressure monitoring, continuous EKG monitoring, Pulse oximetry and Carbon Dioxide monitoring were done throughout the procedure. Colon withdrawl time was 28 minutes. Procedure:?The patient was placed in the left lateral decubitis position and pre-procedure medications were administered. After a digital rectal examination of the ano-rectum, the video colonoscope was inserted into the rectum and advanced through the colon to the cecum. The colonoscope was slowly withdrawn in a retrograde panoramic fashion and the colon mucosa was carefully examined including a retroflexed view of the rectum. Findings and interventions are described below. Procedure Difficulty:?: Without difficulty Findings: Terminal Ileum: Not evaluated Cecum:? Normal Ascending Colon:??Three 5-10 mm sessile polyps removed with cold snare and cold biopsy Transverse Colon:??Three 5-10 mm sessile polyps removed with cold snare and cold biopsy Descending Colon:? Moderate diverticulosis Sigmoid Colon:??A 12-15 mm sessile polyp removed with a hot snare.? Moderate diverticulosis Rectum:??Normal Ano-rectum:??Moderate internal hemorrhoids Colon preparation:? Good after some irrigation Impression and Post Procedure Diagnosis: Endoscopy Findings: ESOPHAGUS: Tortuous esophagus with increased tertiary contractions without stricture or ring. GE junction at 40 cms. No esophagitis or Hughes's. STOMACH: A 3-4 mm benign appearing polyp in the gastric body - biopsied. Two 1 cms calcified benign appearing nodules in the fundus unchanged from last EGD (benign on biopsies obtained during last EGD). Moderate diffuse gastric erythema. Biopsies were obtained. DUODENUM: A 7-8 mm benign appearing nodule in the apex of the bulb - biopsied. Colonoscopy Findings: Eight small to medium sized polyps removed Moderate diverticulosis seen in the left colon Moderate hemorrhoids on retroflexed exam. Plan: Letter will be sent with biopsy results Repeat Colonoscopy in 2-3 years if polyps are adenomatous and due to a hx of multiple colon polyps. Gastric polyps, colon polyps and diverticulosis handouts were given in the discharge area Surgeon: Yana Nye MD Anesthesia:?MAC (Dr Perdomo) Was an Corporate Physical Security Supervisor used for this Procedure?:?Yes Corporate Physical Security Supervisor:?Corina Atkins Estimated blood loss (mL):?0 Pathology:?other (A. duodenal nodule? B. gastric polyp? C. ascending colon polyps (3)? D. transverse colon polyps (4)? E. sigmoid polyp) Condition:?stable Disposition:?PACU
[2021-06-17 11:26] VITALS: BP 129/88; PULSE 101; RESP 18; TEMP 36.2; O2SAT 98
[2021-06-17 11:38] LABS: Glucose, Whole Blood 164 mg/dL (60-115)
[2021-06-17] MEDS: Lactated Ringers 1,000 ML 100 ML IVCONT (11:41)
[2021-06-17 12:42] VITALS: BP 108/70; PULSE 80; RESP 20; TEMP 36.3; O2SAT 98
[2021-06-17 12:57] VITALS: BP 133/72; PULSE 102; RESP 18; TEMP 36.2; O2SAT 98
== END 2021-06-17 13:40 | disposition home or self-care (01) ==
PROVIDERS: PCP Internal Medicine; Visit Provider Internal Medicine Gastroenterology
PROC: (CPT 45385; principal; 2021-06-17 12:00)
DX: Z12.11 Encounter for screening for malignant neoplasm of colon (principal); Z86.010 Personal history of colon polyps; D12.2 Benign neoplasm of ascending colon; D12.3 Benign neoplasm of transverse colon; D12.5 Benign neoplasm of sigmoid colon; K57.30 Diverticulosis of large intestine without perforation or abscess without bleeding; K64.8 Other hemorrhoids; K58.9 Irritable bowel syndrome, unspecified; K59.09 Other constipation; R63.4 Abnormal weight loss; K21.9 Gastro-esophageal reflux disease without esophagitis; K31.7 Polyp of stomach and duodenum; I10 Essential (primary) hypertension; E78.00 Pure hypercholesterolemia, unspecified; R91.1 Solitary pulmonary nodule; E11.65 Type 2 diabetes mellitus with hyperglycemia; Z79.84 Long term (current) use of oral hypoglycemic drugs; Z79.899 Other long term (current) drug therapy; F45.21 Hypochondriasis; F41.1 Generalized anxiety disorder; Z88.0 Allergy status to penicillin; Z91.041 Radiographic dye allergy status; Z90.49 Acquired absence of other specified parts of digestive tract; F17.210 Nicotine dependence, cigarettes, uncomplicated
CPT/HCPCS: 45385; 45380; 43239; 82947; 88305; 88342; J2250; J2405; J2765

== ENCOUNTER → 2021-07-26 12:54 | Outpatient (BNVA) | payer OTHER, SELFPAY | PROVIDERS: PCP Internal Medicine; Visit Provider Urology | DX: N40.0 Benign prostatic hyperplasia without lower urinary tract symptoms (principal) | CPT/HCPCS: 99212 ==

== ENCOUNTER 2021-07-28 18:53 | Emergency (ER) | payer OTHER, SELFPAY ==
--- NOTE | ~2021-07-28 | CT_ITS ---
EXAMINATION: CT CERVICAL SPINE WITHOUT CONTRAST CLINICAL INFORMATION: Status post fall with head and neck injury. COMPARISON: CT cervical spine of 04/25/2019. TECHNIQUE: Multidetector volumetric CT imaging of the cervical spine is acquired without intravenous contrast administration. Postprocessing is performed at a dedicated workstation. Multiplanar reformatted images are submitted. This CT examination was performed using dose optimization techniques as appropriate, variously including the following: *Automated exposure control. *Adjustment of mA and/or kV according to patient size (this includes techniques or standardized protocols for targeted exams where dose is matched to indication/reason for exam; i.e. extremities or head). *Use of iterative reconstruction technique. DLP: 736 mGy-cm FINDINGS: There is reversal of cervical lordosis, similar to that seen on the previous CT scan of 04/25/2019. Stable mild grade 1 anterolisthesis of C2 over C3 and of C3 over C4. Vertebral body heights are maintained. Atlantoaxial and atlanto-occipital alignments are maintained. Posterior elements are intact and in normal alignment. There is [id number] narrowing of the intervertebral disc spaces at C4-C5, C5-C6 and C6-C7 with marginal endplate osteophytes. Degenerative changes are noted at the atlantoaxial articulation. Mild central canal stenosis is noted in the mid and lower cervical spine. Varying degree of moderate bilateral neural foraminal stenosis is noted at multiple levels from C2 to C7. No evidence of prevertebral soft tissue swelling. Airways patent. No significant thyroid nodule. The visualized lung apices are unremarkable. CT/CT cervical spine wo con IMPRESSION: No evidence of acute fracture or traumatic subluxation in the cervical spine. Diffuse cervical spondylosis. No significant interval change is noted compared to previous CT scan of 04/25/2019.
--- NOTE | ~2021-07-28 | CT_ITS ---
EXAMINATION: CT THORACIC SPINE WO CON, CT LUMBAR SPINE WO CON CLINICAL INFORMATION: Reason for Exam status post fall with back injury COMPARISON: None. TECHNIQUE: Multidetector CT imaging of the thoracic and lumbar spine without the use of intravenous contrast. Coronal and sagittal reformats are reviewed. This CT examination was performed using dose optimization techniques as appropriate, variously including the following: *Automated exposure control *Adjustment of mA and/or kV according to patient size (this includes techniques or standardized protocols for targeted exams where dose is matched to indication/reason for exam; i.e. extremities or head) *Use of iterative reconstruction technique DLP: 2755 mGy-cm FINDINGS: No acute fracture or traumatic malalignment. Vertebral body heights maintained. Small endplate ossified present throughout the thoracic and lumbar spine. Mild loss of disc space height at L2-L3 with associated vacuum disc phenomena. Small diffuse disc bulges present throughout the lumbar spine. Mild facet arthropathy from L2 through S1, worst at L4-L5 and L5-S1. Paraspinal soft tissues unremarkable. Imaged thoracic viscera reveals cardiomegaly and coronary calcifications. Lungs are clear. The included retroperitoneum shows a simple cyst in the left kidney which is benign and requires no further follow-up. No retroperitoneal hematoma. CT/CT lumbar spine wo con IMPRESSION: * No acute fracture or traumatic malalignment. * Mild degenerative changes throughout the thoracic spine and moderate degenerative changes throughout the lumbar spine.
--- NOTE | ~2021-07-28 | CT_ITS ---
EXAMINATION: CT HEAD WITHOUT CONTRAST CLINICAL INFORMATION: Status post fall with head injury. COMPARISON: CT head 04/25/2019. TECHNIQUE: Contiguous axial imaging was performed from the skull base to vertex without intravenous administration of contrast. This CT examination was performed using dose optimization techniques as appropriate, variously including the following: *Automated exposure control. *Adjustment of mA and/or kV according to patient size (this includes techniques or standardized protocols for targeted exams where dose is matched to indication/reason for exam; i.e. extremities or head). *Use of iterative reconstruction technique. DLP: 914 mGy-cm FINDINGS: A few of the images at the skull base are degraded by motion. Considering this limitation, there is no evidence of acute intracranial hemorrhage, midline shift or mass effect. [id number] matter differentiation is well preserved. There is no evidence of acute territorial edematous infarction. No abnormal extra-axial fluid collection. Ventricles and sulci are age-appropriate. There is mild global volume loss. Osseous calvarium is grossly intact. Visualized paranasal sinuses and mastoid air cells are well aerated. Calvarial soft tissues are grossly unremarkable. CT/CT head/brain wo con IMPRESSION: Limited images on few of the images at the skull base. Otherwise, there is no evidence of acute intracranial abnormality. Specifically, no evidence of osseous calvarial fracture or acute intracranial hemorrhage.
--- NOTE | ~2021-07-28 | CT_ITS ---
EXAMINATION: CT THORACIC SPINE WO CON, CT LUMBAR SPINE WO CON CLINICAL INFORMATION: Reason for Exam status post fall with back injury COMPARISON: None. TECHNIQUE: Multidetector CT imaging of the thoracic and lumbar spine without the use of intravenous contrast. Coronal and sagittal reformats are reviewed. This CT examination was performed using dose optimization techniques as appropriate, variously including the following: *Automated exposure control *Adjustment of mA and/or kV according to patient size (this includes techniques or standardized protocols for targeted exams where dose is matched to indication/reason for exam; i.e. extremities or head) *Use of iterative reconstruction technique DLP: 2755 mGy-cm FINDINGS: No acute fracture or traumatic malalignment. Vertebral body heights maintained. Small endplate ossified present throughout the thoracic and lumbar spine. Mild loss of disc space height at L2-L3 with associated vacuum disc phenomena. Small diffuse disc bulges present throughout the lumbar spine. Mild facet arthropathy from L2 through S1, worst at L4-L5 and L5-S1. Paraspinal soft tissues unremarkable. Imaged thoracic viscera reveals cardiomegaly and coronary calcifications. Lungs are clear. The included retroperitoneum shows a simple cyst in the left kidney which is benign and requires no further follow-up. No retroperitoneal hematoma. CT/CT thoracic spine wo con IMPRESSION: * No acute fracture or traumatic malalignment. * Mild degenerative changes throughout the thoracic spine and moderate degenerative changes throughout the lumbar spine.
[2021-07-28 19:27] VITALS: BP 112/60; BP 116/64; PULSE 120; RESP 18; TEMP 37.2; O2SAT 93; O2SAT 95; BMI 52.2
--- NOTE | 2021-07-28 20:53 | PC.NURSE ---
Pt sitting in pelvic bed in 6H. Pt was sitting in bed with side rails up. Pt tried to scoot himself forward so that he could stand up next to the bed. As pt moved towards the end of the bed, the weight of the pt caused the bed to tilt forward and the pt slid off the bed and fell on to the floor on his butt. Pt denies any new pain at this time. Provider notified.
--- NOTE | 2021-07-28 20:57 | ECG_ITS ---
Test Reason : FALL Blood Pressure : / mmHG Vent. 

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
[2021-07-29 01:21] LABS: MANUAL DIFF FLAG NO
[2021-07-29 01:22] VITALS: BP 132/65; PULSE 96; RESP 17; TEMP 36.9; O2SAT 95
[2021-07-29 01:23] LABS: Basophils Absolute Auto 0.1 X10*3/uL (0.0-0.2); Basophils Percent Auto 0.5 % (0-2); Eosinophils Absolute Auto 0.2 X10*3/uL (0.0-0.4); Eosinophils Percent Auto 1.8 % (0-4); Hematocrit 39.4 % (42.0-52.0); Hemoglobin 12.9 g/dl (14.0-18.0); Imm Gran Abs Auto 0.04 X10*3/uL (0.00-0.03); Imm Gran Pct Auto 0.4 % (0.0-0.4); Lymphocytes Absolute Auto 2.1 X10*3/uL (1.2-4.9); Lymphocytes Percent Auto 22.6 % (20-40); Mean Corpuscular HGB Conc 32.7 g/dl (31.0-36.0); Mean Corpuscular Hemoglobin 28.9 pg (27.0-33.0); Mean Corpuscular Volume 88.1 fL (80.0-98.0); Mean Platelet Volume 9.3 fL (9.4-12.4); Monocytes Absolute Auto 1.2 X10*3/uL (0.1-1.2); Monocytes Percent Auto 13.1 % (2-11); Neutrophils Absolute Auto 5.8 x10*3/uL (2.0-8.3); Neutrophils Percent Auto 61.6 % (45-73); Platelet Count 251 X10*3/uL (160-400); Red Blood Count 4.47 X10*6/uL (4.60-5.80); Red Cell Distribution Width 13.8 % (11.0-16.0); White Blood Count 9.4 X10*3/uL (4.8-10.8)
[2021-07-29 01:35] LABS: Ethanol < 10 mg/dL
[2021-07-29 01:39] LABS: Alanine Aminotransferase 21 U/L (0-40); Alkaline Phosphatase 84 U/L (39-117); Anion Gap 14 (12-20); Aspartate Amino Transferase 15 U/L (5-37); Bilirubin Total 0.3 mg/dL (0.0-1.0); Blood Urea Nitrogen 18 mg/dL (9-16); Carbon Dioxide 24 mmol/L (22-29); Chloride 103 mmol/L (96-108); Creatinine Clr Calc Pharmacy 111.8; Estimated Glomerular Filt Rate > 60; Glucose Random 183 mg/dL (60-115); Magnesium 1.7 mg/dL (1.6-2.6); Sodium 137 mmol/L (135-145); Total Protein 6.3 g/dL (6.5-8.0)
[2021-07-29 01:40] LABS: COVID-19 Test Negative (Negative); IDNOW Serial# 16C4AD1C
[2021-07-29 01:43] LABS: Troponin-I High Sensitivity 5.4 ng/L (<3.5-35.0)
[2021-07-29 01:59] LABS: TSH reflex Free T4 1.38 uIU/mL (0.32-4.0)
[2021-07-29 06:22] VITALS: BP 125/57; PULSE 93; RESP 18; TEMP 36.9; O2SAT 95
[2021-07-29 07:14] LABS: Glucose, Whole Blood 169 mg/dL (60-115)
--- NOTE | 2021-07-29 08:19 | PC.NURSE ---
physical therapy at bedside
--- NOTE | 2021-07-29 09:45 | PHA.MEDREC ---
Pharmacy Consult ? Medication Reconciliation Pharmacy has completed the medication reconciliation. Patient did not want to wake up. Confirmed active medication with [facility]. No Lozano, LucindaD
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
== END 2021-07-29 18:30 | disposition home or self-care (01) ==
PROVIDERS: Physician Assistant Medical; Emergency Provider Internal Medicine; PCP Internal Medicine
DX: M54.9 Dorsalgia, unspecified (principal); R07.9 Chest pain, unspecified; R06.02 Shortness of breath; E11.9 Type 2 diabetes mellitus without complications; I10 Essential (primary) hypertension; F17.210 Nicotine dependence, cigarettes, uncomplicated; Z59.01 Sheltered homelessness; Z91.81 History of falling; Z20.822 Contact with and (suspected) exposure to COVID-19
CPT/HCPCS: 36415; 70450; 72125; 72128; 72131; 80053; 82077; 82550; 82947; 83735; 84443; 84484; 85025; 85610; 87635; 93005; 97162; 99283; 99285

== ENCOUNTER 2021-08-28 13:07 | Outpatient (REF) | payer OTHER, SELFPAY ==
[2021-08-28 13:28] LABS: MANUAL DIFF FLAG NO
[2021-08-28 13:51] LABS: Basophils Percent Auto 0.5 % (0-2); Eosinophils Absolute Auto 0.1 X10*3/uL (0.0-0.4); Eosinophils Percent Auto 1.1 % (0-4); Hematocrit 46.6 % (42.0-52.0); Hemoglobin 15.6 g/dl (14.0-18.0); Imm Gran Abs Auto 0.02 X10*3/uL (0.00-0.03); Imm Gran Pct Auto 0.2 % (0.0-0.4); Immature Retic Fraction 10.7 % (2.3-13.4); Lymphocytes Absolute Auto 1.9 X10*3/uL (1.2-4.9); Lymphocytes Percent Auto 23.5 % (20-40); Mean Corpuscular HGB Conc 33.5 g/dl (31.0-36.0); Mean Corpuscular Hemoglobin 29.5 pg (27.0-33.0); Mean Corpuscular Volume 88.1 fL (80.0-98.0); Mean Platelet Volume 9.5 fL (9.4-12.4); Monocytes Absolute Auto 0.6 X10*3/uL (0.1-1.2); Neutrophils Absolute Auto 5.4 x10*3/uL (2.0-8.3); Neutrophils Percent Auto 67.7 % (45-73); Platelet Count 285 X10*3/uL (160-400); Red Blood Count 5.29 X10*6/uL (4.60-5.80); Red Cell Distribution Width 13.5 % (11.0-16.0); Retic HGB Equivalent 35.2 pg (30.0-35.0); Reticulocyte Percent 2.3 % (0.5-1.8); Reticulocytes Absolute 0.123 X10*6/uL (0.026-0.095)
[2021-08-28 14:22] LABS: Alanine Aminotransferase 25 U/L (0-40); Albumin Level 4.7 g/dL (3.5-5.0); Alkaline Phosphatase 76 U/L (39-117); Anion Gap 18 (12-20); Aspartate Amino Transferase 21 U/L (5-37); Bilirubin Total 0.6 mg/dL (0.0-1.0); Blood Urea Nitrogen 13 mg/dL (9-16); Calcium 10.2 mg/dL (8.4-10.2); Carbon Dioxide 22 mmol/L (22-29); Chloride 103 mmol/L (96-108); Cholesterol 153 mg/dL; Estimated Glomerular Filt Rate > 60; Glucose Random 139 mg/dL (60-115); HDL Cholesterol 30 mg/dL; Iron 86 mcg/dL (45-160); LDL Cholesterol Calculated 92 mg/dl; Percent Iron Saturation 19 % (15-50); Potassium 4.6 mmol/L (3.3-5.1); Sodium 138 mmol/L (135-145); Total Iron Binding Capacity 447 mcg/dL (228-428); Total Protein 7.3 g/dL (6.5-8.0); Triglycerides 156 mg/dL; Unsaturated Iron Binding 361 ug/dL
[2021-08-28 14:24] LABS: Amylase 61 U/L (28-100); Lipase 12 U/L (8-78)
[2021-08-28 14:53] LABS: Ferritin 67 ng/mL (20-250)
[2021-08-28 14:54] LABS: Folate 13.7 ng/mL (> or = 4.0); Vitamin B12 232 pg/mL (200-900)
[2021-08-28 14:55] LABS: Prostate Specific Antigen Scr 1.16 ng/mL (<0.05-4.0)
== END 2021-08-28 13:08 | disposition home or self-care (01) ==
LOC: HO.LAB 13:07
PROVIDERS: PCP Internal Medicine; Visit Provider Internal Medicine
DX: Z12.5 Encounter for screening for malignant neoplasm of prostate (principal); D64.9 Anemia, unspecified; R20.0 Anesthesia of skin; E78.00 Pure hypercholesterolemia, unspecified
CPT/HCPCS: 36415; 80053; 80061; 82150; 82607; 82728; 82746; 83540; 83690; 84153; 85025; 85045

== ENCOUNTER 2021-10-14 11:12 | Outpatient (REF) | payer OTHER, SELFPAY ==
--- NOTE | ~2021-10-14 | XR_ITS ---
EXAMINATION: XR CHEST CLINICAL INFORMATION: Cough COMPARISON: December 05, 2019 TECHNIQUE: 2 views of the chest were obtained. FINDINGS: No significant abnormality is noted involving the heart, lungs, mediastinum, bony thorax or soft tissues. XR/XR chest 2V IMPRESSION: No acute disease.
[2021-10-14 12:06] LABS: Influenza A PCR NEGATIVE (Negative); Influenza B PCR NEGATIVE (Negative); Resp Syncy Virus RNA Qual PCR NEGATIVE (Negative); SARS COV2 PCR INHOUSE NEGATIVE (Negative)
[2021-10-14 12:39] LABS: Rheumatoid Factor < 15.0 IU/mL (<15.0)
[2021-10-16 22:28] LABS: Anti Nuclear Antibody Screen NEGATIVE (NEGATIVE)
== END 2021-10-14 11:13 | disposition home or self-care (01) ==
LOC: HO.LAB 11:12
PROVIDERS: PCP Internal Medicine; Visit Provider Nurse Practitioner Family
DX: R19.5 Other fecal abnormalities (principal); R05.9 Cough, unspecified; M25.50 Pain in unspecified joint; Z20.822 Contact with and (suspected) exposure to COVID-19
CPT/HCPCS: 0241U; 36415; 71046; 86038; 86039; 86431

== ENCOUNTER 2021-10-24 12:45 | Inpatient (IN) | payer OTHER, SELFPAY ==
--- NOTE | ~2021-10-24 | CT_ITS ---
Indication: Fall EXAMINATION: CT brain, CT cervical spine. This CT examination was performed using dose optimization techniques as appropriate, variously including the following: *Automated exposure control *Adjustment of mA and/or kV according to patient size (this includes techniques or standardized protocols for targeted exams where dose is matched to indication/reason for exam; i.e. extremities or head) *Use of iterative reconstruction technique. Radiation dose 759. Comparison previous dated 07/28/2021. CT brain; There is no midline shift. There is no mass effect. There is no hemorrhage. The basal cisterns appear patent. The posterior fossa is grossly within normal limits. There is no extra-axial collection. There is evidence of atrophy here and some scattered white matter ischemic changes. There is no evidence for fracture on the bone windows. Motion limits the exam. CT cervical spine; Motion and artifact limits evaluation of the inferior spine. There is reversal of the normal cervical lordosis. [place] at C5. No evidence for fracture or dislocation on the imaging submitted. CT/CT cervical spine wo con IMPRESSION: Limited studies. No acute finding in the brain. Degenerative change in the cervical spine with reversal of the normal lordosis which may be due to position or spasm. No acute finding.
--- NOTE | ~2021-10-24 | CT_ITS ---
Indication: Fall EXAMINATION: CT brain, CT cervical spine. This CT examination was performed using dose optimization techniques as appropriate, variously including the following: *Automated exposure control *Adjustment of mA and/or kV according to patient size (this includes techniques or standardized protocols for targeted exams where dose is matched to indication/reason for exam; i.e. extremities or head) *Use of iterative reconstruction technique. Radiation dose 759. Comparison previous dated 07/28/2021. CT brain; There is no midline shift. There is no mass effect. There is no hemorrhage. The basal cisterns appear patent. The posterior fossa is grossly within normal limits. There is no extra-axial collection. There is evidence of atrophy here and some scattered white matter ischemic changes. There is no evidence for fracture on the bone windows. Motion limits the exam. CT cervical spine; Motion and artifact limits evaluation of the inferior spine. There is reversal of the normal cervical lordosis. [place] at C5. No evidence for fracture or dislocation on the imaging submitted. CT/CT head/brain wo con IMPRESSION: Limited studies. No acute finding in the brain. Degenerative change in the cervical spine with reversal of the normal lordosis which may be due to position or spasm. No acute finding.
[2021-10-24 12:54] VITALS: BP 142/81; PULSE 116; O2SAT 98
--- NOTE | 2021-10-24 12:57 | ECG_ITS ---
Test Reason : WEAKNESS Blood Pressure : / mmHG Vent. Rate : 104 BPM Atrial Rate : 104 BPM P-R Int : 160 ms QRS Dur : 086 ms QT Int : 348 ms P-R-T Axes : 042 -16 039 degrees QTc Int : 457 ms Sinus tachycardia with frequent Premature ventricular complexes cannot exclude Inferior infarct (cited on or before 19-SEP-2019) Abnormal ECG When compared with ECG of 28-JUL-2021 21:13, Premature ventricular complexes are now Present Referred By: Kate Stanley Electronically Signed By:OSVALDO ALEXANDER
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
[2021-10-24 13:41] VITALS: BP 116/67; PULSE 104; RESP 16; TEMP 36.6; BMI 31.0
[2021-10-24 14:34] LABS: MANUAL DIFF FLAG NO
[2021-10-24 14:39] VITALS: BP 100/51; PULSE 90; RESP 19; TEMP 36.8; O2SAT 100
[2021-10-24 14:40] LABS: Basophils Percent Auto 0.6 % (0-2); Eosinophils Absolute Auto 0.1 X10*3/uL (0.0-0.4); Eosinophils Percent Auto 1.5 % (0-4); Hematocrit 38.6 % (42.0-52.0); Hemoglobin 13.2 g/dl (14.0-18.0); Imm Gran Abs Auto 0.02 X10*3/uL (0.00-0.03); Imm Gran Pct Auto 0.3 % (0.0-0.4); Lymphocytes Absolute Auto 1.3 X10*3/uL (1.2-4.9); Lymphocytes Percent Auto 18.1 % (20-40); Mean Corpuscular HGB Conc 34.2 g/dl (31.0-36.0); Mean Corpuscular Hemoglobin 30.1 pg (27.0-33.0); Mean Corpuscular Volume 88.1 fL (80.0-98.0); Mean Platelet Volume 9.4 fL (9.4-12.4); Monocytes Absolute Auto 0.8 X10*3/uL (0.1-1.2); Monocytes Percent Auto 10.7 % (2-11); Neutrophils Percent Auto 68.8 % (45-73); Platelet Count 243 X10*3/uL (160-400); Red Blood Count 4.38 X10*6/uL (4.60-5.80); Red Cell Distribution Width 14.2 % (11.0-16.0); White Blood Count 7.2 X10*3/uL (4.8-10.8)
[2021-10-24 14:49] LABS: COVID-19 Test Negative (Negative); IDNOW Serial# 16C4AD1C
[2021-10-24 14:53] LABS: Alanine Aminotransferase 71 U/L (0-40); Albumin Level 3.6 g/dL (3.5-5.0); Alkaline Phosphatase 65 U/L (39-117); Anion Gap 15 (12-20); Aspartate Amino Transferase 126 U/L (5-37); Bilirubin Direct 0.3 mg/dL (0.0-0.5); Bilirubin Total 0.5 mg/dL (0.0-1.0); Blood Urea Nitrogen 25 mg/dL (9-16); Calcium 9.3 mg/dL (8.4-10.2); Carbon Dioxide 26 mmol/L (22-29); Chloride 104 mmol/L (96-108); Creatinine Clr Calc Pharmacy 100.9; Estimated Glomerular Filt Rate > 60; Glucose Random 233 mg/dL (60-115); Magnesium 1.5 mg/dL (1.6-2.6); Potassium 3.7 mmol/L (3.3-5.1); Sodium 141 mmol/L (135-145); Total Protein 5.8 g/dL (6.5-8.0)
[2021-10-24 16:07] LABS: Troponin-I High Sensitivity 5.5 ng/L (<3.5-35.0)
[2021-10-24] MEDS: 0.9 % Sodium Chloride 1,000 ML 250 ML IVCONT (16:09)
[2021-10-24] MEDS: Magnesium Oxide 400 MG TABLET 800 MG PO (16:09)
[2021-10-24] MEDS: 0.9 % Sodium Chloride 1,000 ML 999 ML IV (16:09)
[2021-10-24] MEDS: Sodium Bicarbonate 8.4% 150 MEQ in Dextrose 5 % 850 ML 50 MEQ IV (16:17)
--- NOTE | 2021-10-24 16:41 | PHA.MEDREC ---
Pharmacy Consult ? Medication Reconciliation Pharmacy has completed the medication reconciliation. spoke with pt in ED
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
[2021-10-24] MEDS: Magnesium Sulfate/H2O 2 GM/50 ML PIGGYBACK IV (18:32)
[2021-10-24] MEDS: Lactated Ringers 1,000 ML 100 ML IVCONT (18:33)
[2021-10-24] MEDS: Enoxaparin Sodium 40 MG/0.4 ML SYRINGE SUBCUT (18:35)
--- NOTE | 2021-10-24 21:49 | PC.NURSE ---
PT REFUSED 2100 MEDS, ASKING TO SLEEP. SKIN P/W/D.
[2021-10-24 22:19] LABS: Glucose, Whole Blood 155 mg/dL (60-115)
[2021-10-24] MEDS: ALPRAZolam 0.5 MG TABLET 1 MG PO (23:40)
[2021-10-25 06:16] VITALS: BP 110/65; PULSE 89; RESP 16; TEMP 36.6; O2SAT 97
[2021-10-25] MEDS: Lactated Ringers 1,000 ML 100 ML IVCONT ×2 (06:21→14:38)
[2021-10-25] MEDS: 0.9 % Sodium Chloride Flush 3 ML SYRINGE IVFLUSH ×2 (06:22→21:08)
[2021-10-25] MEDS: Omeprazole 40 MG CAPSULE.DR PO (06:22)
[2021-10-25 07:37] LABS: Alanine Aminotransferase 57 U/L (0-40); Albumin Level 3.4 g/dL (3.5-5.0); Alkaline Phosphatase 58 U/L (39-117); Anion Gap 15 (12-20); Aspartate Amino Transferase 84 U/L (5-37); Bilirubin Direct 0.2 mg/dL (0.0-0.5); Bilirubin Total 0.4 mg/dL (0.0-1.0); Blood Urea Nitrogen 19 mg/dL (9-16); Carbon Dioxide 25 mmol/L (22-29); Chloride 104 mmol/L (96-108); Creatinine Clr Calc Pharmacy 127.3; Estimated Glomerular Filt Rate > 60; Glucose Random 153 mg/dL (60-115); Magnesium 1.5 mg/dL (1.6-2.6); Potassium 3.5 mmol/L (3.3-5.1); Sodium 140 mmol/L (135-145); Total Protein 5.4 g/dL (6.5-8.0)
[2021-10-25 07:50] VITALS: BP 129/69; PULSE 87; RESP 18; O2SAT 97
[2021-10-25 07:52] LABS: Glucose, Whole Blood 158 mg/dL (60-115)
[2021-10-25 08:15] VITALS: BP 130/66; PULSE 88; RESP 16; TEMP 36.6
[2021-10-25] MEDS: Insulin Lispro 100 UNIT/ML 3 ML VIAL SUBCUT ×3 (08:21→18:48)
[2021-10-25] MEDS: Potassium Chloride Packet 20 MEQ PACKET 40 MEQ PO (09:08)
[2021-10-25] MEDS: Magnesium Sulfate/H2O 2 GM/50 ML PIGGYBACK IV (09:08)
[2021-10-25] MEDS: Magnesium Oxide 400 MG TABLET PO (09:09)
[2021-10-25] MEDS: Tamsulosin HCL 0.4 MG CAPSULE PO (09:09)
[2021-10-25] MEDS: Cholecalciferol (Vitamin D3) 25 MCG TABLET PO (09:09)
[2021-10-25] MEDS: Docusate Sodium 100 MG CAPSULE PO ×2 (09:09→21:10)
--- NOTE | 2021-10-25 09:22 | PC.NURSE ---
pt axox3. skin pwd. nsr on mnitor at this time. c/o BLE pain and large scab right knee with slight redness. awaits bed on floor. reports episodes of dizziness and passing out but none this am.
--- NOTE | 2021-10-25 09:23 | PC.NURSE ---
no neuro deficits noted.
[2021-10-25 09:48] LABS: Appearance Urine CLEAR; Color Urine DK YELLOW; Glucose Urine UA NEG (NEG); Leukocyte Esterase Urine NEG (NEG); Nitrite Urine NEG (NEG); Specific Gravity - Urine >= 1.030 (1.005-1.025); Urine Blood NEG (NEG); Urine Ketones 15 MG/DL (NEG); Urine Protein NEG (NEG-TRACE)
[2021-10-25 11:21] VITALS: BP 130/66; PULSE 88
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
[2021-10-25] MEDS: ALPRAZolam 0.5 MG TABLET 1 MG PO (11:47)
[2021-10-25 14:29] LABS: Glucose, Whole Blood 160 mg/dL (60-115)
[2021-10-25 14:41] VITALS: BP 127/88; PULSE 88; RESP 18; TEMP 36.5; O2SAT 99
--- NOTE | 2021-10-25 15:33 | P.PNIM_ITS ---
Subjective Subjective Date of Service: 10/25/21 Interval History: Seen and evaluated this morning Complaining of pain in lower extremities CPK still elevated denies any fever, chills No other overnight events Review of Systems No fever, chills but reports generalized weakness and episodes of dizziness No chest pain, palpitation No shortness of breath or coughing No abdominal pain, nausea or vomiting No urinary symptoms No any rash or wounds Physical Exam Vital Signs: Vital Signs: Last Vital Signs Temp 97.7 F 10/25/21 14:41 Pulse 88 10/25/21 14:41 Resp 18 10/25/21 14:41 BP 127/88 10/25/21 14:41 Pulse Ox 99 10/25/21 14:41 O2 Del Method 10/25/21 14:41 BMI result Body Mass Index 31.0 Const: Other: Constitutional : Alert, oriented, not in distress Neck : Normal inspection, Supple Cardiovascular : RRR, no JVP, no lower extremity edema Respiratory : fair bilateral air entry, no crackles, wheezes or rhonchi Gastrointestinal: soft, lax, Normal bowel sounds, Non tender, distended abdomen Skin : Warm, Dry, filthy feet with no open wounds, long nails Neurological : Alert & oriented x3, No focal deficit , CN 2-12 within normal Objective Data Active Medications Acetaminophen (Acetaminophen 325 Mg Tablet) 650 mg PO Q6H PRN PRN Reason: Pain, Mild (Pain Scale 1-3) Alprazolam (Alprazolam 0.5 Mg Tablet) 1 mg PO BID PRN PRN Reason: anxiety Last Admin: 10/25/21 11:47 Dose: 1 mg Documented By: GORGE Atorvastatin Calcium (Atorvastatin Calcium 80 Mg Tablet) 80 mg PO DAILY [facility] Dicyclomine HCl (Dicyclomine Hcl 10 Mg Capsule) 20 mg PO TID PRN PRN Reason: abdominal pain Docusate Sodium (Docusate Sodium 100 Mg Capsule) 100 mg PO BID [facility] Last Admin: 10/25/21 09:09 Dose: 100 mg Documented By: GORGE Enoxaparin Sodium (Enoxaparin Sodium 40 Mg/0.4 Ml Syringe) 40 mg SUBCUT Q24H [facility] Last Admin: 10/24/21 18:35 Dose: 40 mg Documented By: ALEX Lactated Ringer's (Lr) 1,000 mls @ 100 mls/hr IVCONT .Q10H [facility] Last Admin: 10/25/21 14:38 Dose: 100 mls/hr Documented By: GORGE Insulin Human Lispro (Insulin Lispro 100 Unit/Ml 3 Ml Vial) 0 unit SUBCUT QIDACHS [facility]; Protocol Last Admin: 10/25/21 14:35 Dose: 2 unit Documented By: GORGE Ketorolac Tromethamine (Ketorolac Tromethamine 15 Mg/Ml Vial) 15 mg IVPUSH Q6H PRN PRN Reason: Pain, Moderate (Pain Scale 4-6 Magnesium Oxide (Magnesium Oxide 400 Mg Tablet) 400 mg PO DAILY [facility] Last Admin: 10/25/21 09:09 Dose: 400 mg Documented By: GORGE Omeprazole (Omeprazole 40 Mg Capsule.Dr) 40 mg PO DAILY@0630 [facility] Last Admin: 10/25/21 06:22 Dose: 40 mg Documented By: CASSIUS-CANF Ondansetron HCl (Ondansetron Hcl 4 Mg/2 Ml Vial) 4 mg IVPUSH Q8H PRN PRN Reason: Nausea and Vomiting Pharmacy Consult (Consult Rx Perform Med Rec) 1 each MISCELLANE ONCE PRN PRN Reason: Consult order Pioglitazone HCl (Pioglitazone Hcl 30 Mg Tablet) 30 mg PO DAILY [facility] Sodium Chloride (0.9 % Sodium Chloride Flush 3 Ml Syringe) 3 ml IVFLUSH QSHIFT [facility] Last Admin: 10/25/21 14:38 Dose: Not Given Documented By: GORGE Non-Admin Reason: Med Not Available Tamsulosin HCl (Tamsulosin Hcl 0.4 Mg Capsule) 0.4 mg PO DAILY [facility] Last Admin: 10/25/21 09:09 Dose: 0.4 mg Documented By: GORGE Vitamin D (Cholecalciferol (Vitamin D3) 25 Mcg Tablet) 25 mcg PO DAILY [facility] Last Admin: 10/25/21 09:09 Dose: 25 mcg Documented By: GORGE Labs CBC & Chem 7: 10/24/21 14:17 10/25/21 06:01 Labs: Laboratory Results - last 24 hr 10/24/21 10/24/21 10/25/21 14:17 18:24 06:01 Anion Gap 15 Estim Creat Clear Calc 127.3 Estimated GFR > 60 POC Glucose 155 H Random Glucose 153 H Estimat Average Glucose Cancelled Hemoglobin A1c % Cancelled Calcium 9.0 Magnesium 1.5 L Total Bilirubin 0.4 Direct Bilirubin 0.2 AST 84 H ALT 57 H Alkaline Phosphatase 58 Total Creatine Kinase 5971 H D Total Protein 5.4 L Albumin 3.4 L Urine Color Urine Appearance Urine pH Ur Specific [place] Urine Protein Urine Glucose (UA) Urine Ketones Urine Blood Urine Nitrite Ur Leukocyte Esterase 10/25/21 10/25/21 10/25/21 07:28 09:18 14:12 Anion Gap Estim Creat Clear Calc Estimated GFR POC Glucose 158 H 160 H Random Glucose Estimat Average Glucose Hemoglobin A1c % Calcium Magnesium Total Bilirubin Direct Bilirubin AST ALT Alkaline Phosphatase Total Creatine Kinase Total Protein Albumin Urine Color DK YELLOW Urine Appearance CLEAR Urine pH 6.0 Ur Specific [place] >= 1.030 H Urine Protein NEG Urine Glucose (UA) NEG Urine Ketones 15 Urine Blood NEG Urine Nitrite NEG Ur Leukocyte Esterase NEG Assessment and Plan (1) Rhabdomyolysis: Status: Acute (2) Hypomagnesemia: Status: Acute Plan A 66 years old male with PMH of anxiety, chronic back pain, diabetes, HLD, IBS among others who presents to the hospital by EMS for recurrent falls. Rhabdomyolysis CPK trending down around 5000 No kidney injury yet, Continue IV fluids Follow BMP and CPK Hypo magnesemia Likely secondary to malnutrition Mg 1.5 this morning Give replacement and daily supplement Repeat magnesium level Falls Secondary to physical deconditioning physical therapy Type 2 diabetes SSI, diabetic diet Hypertension Hold lisinopril for soft blood pressure readings BPH continue tamsulosin DVT PPX Lovenox The patient will likely need Overnight hospital stay for treatment of rhabdomyolysis, electrolyte imbalance with plan for placement to prevent possible decompensation and recurrent falls. Quality Stroke Does the patient have a stroke diagnosis?: No VTE Prior VTE?: No VTE Risk Level:: Medical - moderate - high VTE Device Contraindication: Treatment Not Indicated VTE Drug Contraindication: N/A - Med Ordered
[2021-10-25 18:09] VITALS: BP 119/56; PULSE 86; RESP 20; TEMP 37; O2SAT 97
[2021-10-25 18:12] VITALS: BMI 41.8
[2021-10-25 18:19] LABS: Glucose, Whole Blood 207 mg/dL (60-115)
[2021-10-25 18:23] VITALS: BMI 41.8
[2021-10-25] MEDS: Enoxaparin Sodium 40 MG/0.4 ML SYRINGE SUBCUT (18:49)
[2021-10-25 20:35] LABS: Glucose, Whole Blood 138 mg/dL (60-115)
[2021-10-25] MEDS: Ketorolac Tromethamine 15 MG/ML VIAL IVPUSH (21:08)
[2021-10-26] VITALS (7 sets, daily range): BP systolic 112–139; BP diastolic 55–72; PULSE 73–97; RESP 17–18; TEMP 36.1–36.7; O2SAT 95–98
[2021-10-26] MEDS: Lactated Ringers 1,000 ML 100 ML IVCONT ×2 (00:50→09:44)
[2021-10-26] MEDS: ALPRAZolam 0.5 MG TABLET 1 MG PO ×3 (02:28→20:42)
[2021-10-26 06:09] LABS: Hematocrit 35.4 % (42.0-52.0); Hemoglobin 11.9 g/dl (14.0-18.0); Mean Corpuscular HGB Conc 33.6 g/dl (31.0-36.0); Mean Corpuscular Hemoglobin 30.1 pg (27.0-33.0); Mean Corpuscular Volume 89.4 fL (80.0-98.0); Mean Platelet Volume 9.4 fL (9.4-12.4); Platelet Count 232 X10*3/uL (160-400); Red Blood Count 3.96 X10*6/uL (4.60-5.80); Red Cell Distribution Width 13.7 % (11.0-16.0); White Blood Count 6.6 X10*3/uL (4.8-10.8)
[2021-10-26] MEDS: Omeprazole 40 MG CAPSULE.DR PO (06:20)
--- NOTE | 2021-10-26 06:32 | PC.NURSE ---
Pt requested med for sleep, Dr. Garrison was made aware, ordered Trazodone 50 mg po, pt refused med, renotified, pt agreed to take his Xanax instead, slept mildly after.
[2021-10-26 06:48] LABS: Anion Gap 13 (12-20); Blood Urea Nitrogen 16 mg/dL (9-16); Calcium 8.8 mg/dL (8.4-10.2); Carbon Dioxide 28 mmol/L (22-29); Chloride 102 mmol/L (96-108); Creatinine Clr Calc Pharmacy 141.8; Estimated Glomerular Filt Rate > 60; Glucose Random 151 mg/dL (60-115); Potassium 3.9 mmol/L (3.3-5.1); Sodium 139 mmol/L (135-145)
[2021-10-26 06:51] LABS: Magnesium 1.4 mg/dL (1.6-2.6)
[2021-10-26 07:06] LABS: Glucose, Whole Blood 143 mg/dL (60-115)
--- NOTE | 2021-10-26 07:15 | PC.NURSE ---
Lab called for a critical Magnesium level=1.4, Dr. Garrison was made aware.
[2021-10-26] MEDS: Magnesium Sulfate/H2O 2 GM/50 ML PIGGYBACK IV ×2 (07:45→09:43)
[2021-10-26] MEDS: 0.9 % Sodium Chloride Flush 3 ML SYRINGE IVFLUSH ×2 (07:47→16:09)
[2021-10-26] MEDS: Cholecalciferol (Vitamin D3) 25 MCG TABLET PO (07:47)
[2021-10-26] MEDS: Docusate Sodium 100 MG CAPSULE PO ×2 (07:47→20:39)
[2021-10-26] MEDS: Magnesium Oxide 400 MG TABLET PO (07:47)
[2021-10-26] MEDS: Tamsulosin HCL 0.4 MG CAPSULE PO (07:47)
[2021-10-26] MEDS: Atorvastatin Calcium 80 MG TABLET PO (07:48)
[2021-10-26] MEDS: Magnesium Oxide 400 MG TABLET 800 MG PO (09:44)
--- NOTE | 2021-10-26 11:16 | P.PNIM_ITS ---
Subjective Subjective Date of Service: 10/26/21 Interval History: Seen and evaluated this morning Complaining of pain in lower extremities CPK trending down denies any fever, chills No other overnight events Review of Systems No fever, chills but reports generalized weakness and less episodes of dizziness No chest pain, palpitation No shortness of breath or coughing No abdominal pain, nausea or vomiting No urinary symptoms No any rash or wounds Physical Exam Vital Signs: Vital Signs: Last Vital Signs Temp 98 F 10/26/21 06:57 Pulse 97 10/26/21 06:57 Resp 18 10/26/21 06:57 BP 139/72 10/26/21 06:57 Pulse Ox 95 10/26/21 06:57 O2 Del Method 10/26/21 06:57 BMI result Body Mass Index 41.8 Const: Other: Constitutional : Alert, oriented, not in distress Neck : Normal inspection, Supple Cardiovascular : RRR, no JVP, no lower extremity edema Respiratory : fair bilateral air entry, no crackles, wheezes or rhonchi Gastrointestinal: soft, lax, Normal bowel sounds, Non tender, distended abdomen Skin : Warm, Dry, filthy feet with no open wounds, long nails, scratching borjas Neurological : Alert & oriented x3, No focal deficit , CN 2-12 within normal Objective Data Active Medications Acetaminophen (Acetaminophen 325 Mg Tablet) 650 mg PO Q6H PRN PRN Reason: Pain, Mild (Pain Scale 1-3) Alprazolam (Alprazolam 0.5 Mg Tablet) 1 mg PO BID PRN PRN Reason: anxiety Last Admin: 10/26/21 09:43 Dose: 1 mg Documented By: HAY Atorvastatin Calcium (Atorvastatin Calcium 80 Mg Tablet) 80 mg PO DAILY [facility] Last Admin: 10/26/21 07:48 Dose: 80 mg Documented By: HAY Dicyclomine HCl (Dicyclomine Hcl 10 Mg Capsule) 20 mg PO TID PRN PRN Reason: abdominal pain Docusate Sodium (Docusate Sodium 100 Mg Capsule) 100 mg PO BID [facility] Last Admin: 10/26/21 07:47 Dose: 100 mg Documented By: HAY Enoxaparin Sodium (Enoxaparin Sodium 40 Mg/0.4 Ml Syringe) 40 mg SUBCUT Q24H [facility] Last Admin: 10/25/21 18:49 Dose: 40 mg Documented By: KILLIAN Lactated Ringer's (Lr) 1,000 mls @ 125 mls/hr IVCONT .Q8H [facility] Last Admin: 10/26/21 09:44 Dose: 100 mls/hr Documented By: HAY Insulin Human Lispro (Insulin Lispro 100 Unit/Ml 3 Ml Vial) 0 unit SUBCUT QIDACHS [facility]; Protocol Last Admin: 10/26/21 07:46 Dose: Not Given Documented By: HAY Non-Admin Reason: No Insulin Coverage Ketorolac Tromethamine (Ketorolac Tromethamine 15 Mg/Ml Vial) 15 mg IVPUSH Q6H PRN PRN Reason: Pain, Moderate (Pain Scale 4-6 Last Admin: 10/25/21 21:08 Dose: 15 mg Documented By: DEUCE Magnesium Oxide (Magnesium Oxide 400 Mg Tablet) 800 mg PO DAILY [facility] Last Admin: 10/26/21 09:44 Dose: 800 mg Documented By: HAY Omeprazole (Omeprazole 40 Mg Capsule.) 40 mg PO DAILY@0630 [facility] Last Admin: 10/26/21 06:20 Dose: 40 mg Documented By: DEUCE Ondansetron HCl (Ondansetron Hcl 4 Mg/2 Ml Vial) 4 mg IVPUSH Q8H PRN PRN Reason: Nausea and Vomiting Pharmacy Consult (Consult Rx Perform Med Rec) 1 each MISCELLANE ONCE PRN PRN Reason: Consult order Pioglitazone HCl (Pioglitazone Hcl 15 Mg Tablet) 30 mg PO DAILY [facility] Last Admin: 10/26/21 07:47 Dose: 30 mg Documented By: HAY Sodium Chloride (0.9 % Sodium Chloride Flush 3 Ml Syringe) 3 ml IVFLUSH QSHIFT [facility] Last Admin: 10/26/21 07:47 Dose: 3 ml Documented By: HAY Tamsulosin HCl (Tamsulosin Hcl 0.4 Mg Capsule) 0.4 mg PO DAILY [facility] Last Admin: 10/26/21 07:47 Dose: 0.4 mg Documented By: HAY Vitamin D (Cholecalciferol (Vitamin D3) 25 Mcg Tablet) 25 mcg PO DAILY [facility] Last Admin: 10/26/21 07:47 Dose: 25 mcg Documented By: HAY Labs CBC & Chem 7: 10/26/21 05:25 08/13/22 05:25 Labs: Laboratory Results - last 24 hr 10/25/21 10/25/21 10/25/21 14:12 18:14 20:31 MCV MCH MCHC RDW Plt Count MPV Absolute Nucleated RBC Nucleated RBC % (auto) Anion Gap Estim Creat Clear Calc Estimated GFR POC Glucose 160 H 207 H 138 H Random Glucose Calcium Magnesium Total Creatine Kinase 10/26/21 10/26/21 10/26/21 05:25 05:25 05:25 MCV 89.4 MCH 30.1 MCHC 33.6 RDW 13.7 Plt Count 232 MPV 9.4 Absolute Nucleated RBC 0.000 Nucleated RBC % (auto) 0.0 Anion Gap 13 Estim Creat Clear Calc 141.8 Estimated GFR > 60 POC Glucose Random Glucose 151 H Calcium 8.8 Magnesium 1.4 L* Total Creatine Kinase 3778 H D 10/26/21 06:57 MCV MCH MCHC RDW Plt Count MPV Absolute Nucleated RBC Nucleated RBC % (auto) Anion Gap Estim Creat Clear Calc Estimated GFR POC Glucose 143 H Random Glucose Calcium Magnesium Total Creatine Kinase Assessment and Plan (1) Rhabdomyolysis: Status: Acute (2) Physical deconditioning: Status: Acute Plan A 66 years old male with PMH of anxiety, chronic back pain, diabetes, HLD, IBS among others who presents to the hospital by EMS for recurrent falls. Rhabdomyolysis CPK trending down around 3000 No kidney injury Continue IV fluids Follow BMP and CPK Hypo magnesemia Likely secondary to malnutrition Mg 1.4 this morning Give replacement and daily supplement Repeat magnesium level Falls Secondary to physical deconditioning physical therapy recommended short-term rehab Type 2 diabetes SSI, diabetic diet Hypertension Hold lisinopril for soft blood pressure readings BPH continue tamsulosin DVT PPX Lovenox The patient will likely need Overnight hospital stay for treatment of rhabdomy olysis, electrolyte imbalance with plan for placement to prevent possible decompensation and recurrent falls. Quality Stroke Does the patient have a stroke diagnosis?: No VTE Prior VTE?: No VTE Risk Level:: Medical - moderate - high VTE Device Contraindication: Treatment Not Indicated VTE Drug Contraindication: N/A - Med Ordered
[2021-10-26 11:31] LABS: Glucose, Whole Blood 182 mg/dL (60-115)
[2021-10-26] MEDS: Insulin Lispro 100 UNIT/ML 3 ML VIAL SUBCUT ×3 (11:49→20:40)
[2021-10-26 16:01] LABS: Glucose, Whole Blood 187 mg/dL (60-115)
[2021-10-26] MEDS: Ketorolac Tromethamine 15 MG/ML VIAL IVPUSH ×2 (16:08→22:00)
[2021-10-26] MEDS: Enoxaparin Sodium 40 MG/0.4 ML SYRINGE SUBCUT (17:14)
[2021-10-26] MEDS: Acetaminophen 325 MG TABLET 650 MG PO (17:14)
[2021-10-26] MEDS: Lactated Ringers 1,000 ML 125 ML IVCONT (19:22)
[2021-10-26 19:56] LABS: Glucose, Whole Blood 157 mg/dL (60-115)
[2021-10-27] MEDS: Lactated Ringers 1,000 ML 125 ML IVCONT ×3 (02:33→18:41)
[2021-10-27 03:12] VITALS: BP 155/61; PULSE 82; RESP 17; TEMP 36.8; O2SAT 97
[2021-10-27] MEDS: Omeprazole 40 MG CAPSULE.DR PO (05:40)
[2021-10-27 06:40] LABS: Anion Gap 11 (12-20); Blood Urea Nitrogen 13 mg/dL (9-16); Calcium 8.5 mg/dL (8.4-10.2); Carbon Dioxide 28 mmol/L (22-29); Chloride 103 mmol/L (96-108); Creatinine Clr Calc Pharmacy 141.8; Estimated Glomerular Filt Rate > 60; Glucose Random 176 mg/dL (60-115); Potassium 3.9 mmol/L (3.3-5.1); Sodium 138 mmol/L (135-145)
[2021-10-27 06:43] LABS: Magnesium 1.6 mg/dL (1.6-2.6)
[2021-10-27 07:37] VITALS: BP 127/63; PULSE 80; RESP 19; TEMP 36.6; O2SAT 97
[2021-10-27 07:43] LABS: Glucose, Whole Blood 126 mg/dL (60-115)
[2021-10-27] MEDS: Magnesium Oxide 400 MG TABLET 800 MG PO (08:09)
[2021-10-27] MEDS: Docusate Sodium 100 MG CAPSULE PO ×2 (08:10→20:00)
[2021-10-27] MEDS: 0.9 % Sodium Chloride Flush 3 ML SYRINGE IVFLUSH ×2 (08:10→15:51)
[2021-10-27] MEDS: Tamsulosin HCL 0.4 MG CAPSULE PO (08:10)
[2021-10-27] MEDS: Cholecalciferol (Vitamin D3) 25 MCG TABLET PO (08:10)
[2021-10-27] MEDS: Atorvastatin Calcium 80 MG TABLET PO (08:10)
--- NOTE | 2021-10-27 10:17 | MHC.CM.PN ---
Per MD, Patient is medically cleared for dc to SNF/[facility] today. First choice SNF/[facility] cannot accommodate a Covid/unvaccinated Patient. CM has extended SNF search and Patient will also need [employer] auth so is not likely to dc today (Thursday).CM will follow.
[2021-10-27 11:20] VITALS: BP 143/72; PULSE 84; RESP 18; TEMP 36.7; O2SAT 96
[2021-10-27 11:35] LABS: Glucose, Whole Blood 182 mg/dL (60-115)
[2021-10-27] MEDS: Insulin Lispro 100 UNIT/ML 3 ML VIAL SUBCUT ×2 (11:48→15:51)
--- NOTE | 2021-10-27 11:55 | P.PNIM_ITS ---
Subjective Subjective Date of Service: 10/27/21 Interval History: Seen and evaluated this morning Complaining of pain in lower extremities CPK trending down denies any fever, chills No other overnight events Review of Systems No fever, chills but reports generalized weakness and less episodes of dizziness No chest pain, palpitation No shortness of breath or coughing No abdominal pain, nausea or vomiting No urinary symptoms No any rash or wounds Physical Exam Vital Signs: Vital Signs: Last Vital Signs Temp 98.1 F 10/27/21 11:20 Pulse 84 10/27/21 11:20 Resp 18 10/27/21 11:20 BP 143/72 H 10/27/21 11:20 Pulse Ox 96 10/27/21 11:20 O2 Del Method 10/27/21 11:20 BMI result Body Mass Index 41.8 Const: Other: Constitutional : Alert, oriented, not in distress Neck : Normal inspection, Supple Cardiovascular : RRR, no JVP, no lower extremity edema Respiratory : fair bilateral air entry, no crackles, wheezes or rhonchi Gastrointestinal: soft, lax, Normal bowel sounds, Non tender, distended abdomen Skin : Warm, Dry, filthy feet with no open wounds, long nails, scratching borjas Neurological : Alert & oriented x3, No focal deficit , CN 2-12 within normal Objective Data Active Medications Acetaminophen (Acetaminophen 325 Mg Tablet) 650 mg PO Q6H PRN PRN Reason: Pain, Mild (Pain Scale 1-3) Last Admin: 10/26/21 17:14 Dose: 650 mg Documented By: HAY Alprazolam (Alprazolam 0.5 Mg Tablet) 1 mg PO BID PRN PRN Reason: anxiety Last Admin: 10/26/21 20:42 Dose: 1 mg Documented By: CASTILJayro Atorvastatin Calcium (Atorvastatin Calcium 80 Mg Tablet) 80 mg PO DAILY [facility] Last Admin: 10/27/21 08:10 Dose: 80 mg Documented By: ZOFIA Dicyclomine HCl (Dicyclomine Hcl 10 Mg Capsule) 20 mg PO TID PRN PRN Reason: abdominal pain Docusate Sodium (Docusate Sodium 100 Mg Capsule) 100 mg PO BID [facility] Last Admin: 10/27/21 08:10 Dose: 100 mg Documented By: ZOFIA Enoxaparin Sodium (Enoxaparin Sodium 40 Mg/0.4 Ml Syringe) 40 mg SUBCUT Q24H [facility] Last Admin: 10/26/21 17:14 Dose: 40 mg Documented By: HAY Lactated Ringer's (Lr) 1,000 mls @ 125 mls/hr IVCONT .Q8H [facility] Last Admin: 10/27/21 11:31 Dose: 125 mls/hr Documented By: ZOFIA Insulin Human Lispro (Insulin Lispro 100 Unit/Ml 3 Ml Vial) 0 unit SUBCUT QIDACHS [facility]; Protocol Last Admin: 10/27/21 11:48 Dose: 2 unit Documented By: ZOFIA Ketorolac Tromethamine (Ketorolac Tromethamine 15 Mg/Ml Vial) 15 mg IVPUSH Q6H PRN PRN Reason: Pain, Moderate (Pain Scale 4-6 Last Admin: 10/26/21 22:00 Dose: 15 mg Documented By: DEUCE Magnesium Oxide (Magnesium Oxide 400 Mg Tablet) 800 mg PO DAILY [facility] Last Admin: 10/27/21 08:09 Dose: 800 mg Documented By: ZOFIA Omeprazole (Omeprazole 40 Mg Capsule.) 40 mg PO DAILY@0630 [facility] Last Admin: 10/27/21 05:40 Dose: 40 mg Documented By: DEUCE Ondansetron HCl (Ondansetron Hcl 4 Mg/2 Ml Vial) 4 mg IVPUSH Q8H PRN PRN Reason: Nausea and Vomiting Pharmacy Consult (Consult Rx Perform Med Rec) 1 each MISCELLANE ONCE PRN PRN Reason: Consult order Pioglitazone HCl (Pioglitazone Hcl 15 Mg Tablet) 30 mg PO DAILY [facility] Last Admin: 10/27/21 08:10 Dose: 30 mg Documented By: ZOFIA Sodium Chloride (0.9 % Sodium Chloride Flush 3 Ml Syringe) 3 ml IVFLUSH QSHIFT [facility] Last Admin: 10/27/21 08:10 Dose: 3 ml Documented By: ZOFIA Tamsulosin HCl (Tamsulosin Hcl 0.4 Mg Capsule) 0.4 mg PO DAILY [facility] Last Admin: 10/27/21 08:10 Dose: 0.4 mg Documented By: ZOFIA Vitamin D (Cholecalciferol (Vitamin D3) 25 Mcg Tablet) 25 mcg PO DAILY [facility] Last Admin: 10/27/21 08:10 Dose: 25 mcg Documented By: ZOFIA Labs CBC & Chem 7: 10/26/21 05:25 10/27/21 05:51 Labs: Laboratory Results - last 24 hr 10/26/21 10/26/21 10/27/21 15:37 19:47 05:51 Anion Gap Estim Creat Clear Calc Estimated GFR POC Glucose 187 H 157 H Random Glucose Calcium Magnesium 1.6 Total Creatine Kinase 2695 H 10/27/21 10/27/21 10/27/21 05:51 07:35 11:17 Anion Gap 11 L Estim Creat Clear Calc 141.8 Estimated GFR > 60 POC Glucose 126 H 182 H Random Glucose 176 H Calcium 8.5 Magnesium Total Creatine Kinase Assessment and Plan (1) Physical deconditioning: Status: Acute (2) Rhabdomyolysis: Status: Acute Plan A 66 years old male with PMH of anxiety, chronic back pain, diabetes, HLD, IBS among others who presents to the hospital by EMS for recurrent falls. Rhabdomyolysis CPK trending down around No kidney injury Continue IV fluids Follow BMP and CPK Hypo magnesemia Likely secondary to malnutrition resolved continue daily supplement Falls Secondary to physical deconditioning physical therapy recommended short-term rehab Type 2 diabetes SSI, diabetic diet Hypertension Hold lisinopril for soft blood pressure readings BPH continue tamsulosin DVT PPX Lovenox The patient will likely need Overnight hospital stay for treatment of rhabdomyolysis, electrolyte imbalance with plan for placement to prevent po ssible decompensation and recurrent falls. Quality Stroke Does the patient have a stroke diagnosis?: No VTE Prior VTE?: No VTE Risk Level:: Medical - moderate - high VTE Device Contraindication: Treatment Not Indicated VTE Drug Contraindication: N/A - Med Ordered
[2021-10-27 15:24] LABS: Glucose, Whole Blood 179 mg/dL (60-115)
[2021-10-27 15:41] VITALS: BP 138/82; PULSE 88; RESP 15; O2SAT 96
[2021-10-27] MEDS: ALPRAZolam 0.5 MG TABLET 1 MG PO (17:17)
[2021-10-27] MEDS: Acetaminophen 325 MG TABLET 650 MG PO (17:17)
[2021-10-27] MEDS: Enoxaparin Sodium 40 MG/0.4 ML SYRINGE SUBCUT (18:42)
[2021-10-27 19:24] VITALS: BP 135/63; PULSE 87; RESP 18; TEMP 36.5; O2SAT 95
[2021-10-27 19:49] LABS: Glucose, Whole Blood 145 mg/dL (60-115)
[2021-10-27 23:28] VITALS: BP 134/69; PULSE 87; RESP 18; TEMP 36.6; O2SAT 95
--- NOTE | 2021-10-28 00:07 | MHC.CARE ---
CARE team consult received for anxiety/depression, unit sec called to confirm receipt at 12am. CARE team will follow up in the morning re: need for crisis eval.
[2021-10-28] MEDS: Lactated Ringers 1,000 ML 125 ML IVCONT ×2 (02:03→09:34)
[2021-10-28 03:42] VITALS: BP 133/87; PULSE 84; RESP 18; TEMP 36.2; O2SAT 97
[2021-10-28] MEDS: Omeprazole 40 MG CAPSULE.DR PO ×2 (05:46→16:37)
[2021-10-28 06:49] VITALS: BP 136/64; PULSE 91; RESP 20; TEMP 36.6; O2SAT 96
[2021-10-28 07:00] LABS: Glucose, Whole Blood 131 mg/dL (60-115)
[2021-10-28] MEDS: ALPRAZolam 0.5 MG TABLET 1 MG PO ×2 (08:02→19:48)
[2021-10-28] MEDS: Docusate Sodium 100 MG CAPSULE PO ×2 (08:03→19:48)
[2021-10-28] MEDS: Magnesium Oxide 400 MG TABLET 800 MG PO (08:03)
[2021-10-28] MEDS: Tamsulosin HCL 0.4 MG CAPSULE PO (08:03)
[2021-10-28] MEDS: Atorvastatin Calcium 80 MG TABLET PO (08:03)
[2021-10-28] MEDS: Cholecalciferol (Vitamin D3) 25 MCG TABLET PO (08:03)
--- NOTE | 2021-10-28 10:34 | MHC.CLN ---
NUTRITION INCREASED DIET KCALS. DIET CHANGED TO DIABETIC 2000 KCALS. WEIGHT HX REVIEWED WITH CURRENT WEIGHT IN LINE WITH MOST RECENT WEIGHTS. SUSPECT WEIGHT=95 KG ERROR.
[2021-10-28 11:09] VITALS: BP 142/73; PULSE 81; RESP 20; TEMP 36; O2SAT 98
[2021-10-28 11:18] LABS: Glucose, Whole Blood 154 mg/dL (60-115)
[2021-10-28] MEDS: Acetaminophen 325 MG TABLET 650 MG PO (11:18)
--- NOTE | 2021-10-28 11:55 | HO.PM.IMPN ---
Subjective Subjective Date of Service: 10/28/21 Interval History: Seen and evaluated this morning Complaining of pain in lower extremities CPK trending down Anxious and mildly depressed denies any fever, chills No other overnight events Review of Systems No fever, chills but reports generalized weakness and less episodes of dizziness No chest pain, palpitation No shortness of breath or coughing No abdominal pain, nausea or vomiting No urinary symptoms No any rash or wounds Physical Exam Vital Signs: Vital Signs: Last Vital Signs Temp 96.8 F 10/28/21 11:09 Pulse 81 10/28/21 11:09 Resp 20 10/28/21 11:09 BP 142/73 H 10/28/21 11:09 Pulse Ox 98 10/28/21 11:09 O2 Del Method 10/28/21 11:09 BMI result Body Mass Index 41.8 Const: Other: Constitutional : Alert, oriented, not in distress Neck : Normal inspection, Supple Cardiovascular : RRR, no JVP, no lower extremity edema Respiratory : fair bilateral air entry, no crackles, wheezes or rhonchi Gastrointestinal: soft, lax, Normal bowel sounds, Non tender, distended abdomen Skin : Warm, Dry, filthy feet with no open wounds, long nails, scratching borjas Neurological : Alert & oriented x3, No focal deficit , CN 2-12 within normal Objective Data Active Medications Acetaminophen (Acetaminophen 325 Mg Tablet) 650 mg PO Q6H PRN PRN Reason: Pain, Mild (Pain Scale 1-3) Last Admin: 10/28/21 11:18 Dose: 650 mg Documented By: BALWINDER Alprazolam (Alprazolam 0.5 Mg Tablet) 1 mg PO BID PRN PRN Reason: anxiety Last Admin: 10/28/21 08:02 Dose: 1 mg Documented By: BALWINDER Atorvastatin Calcium (Atorvastatin Calcium 80 Mg Tablet) 80 mg PO DAILY PENDING SALE TO [facility] Last Admin: 10/28/21 08:03 Dose: 80 mg Documented By: BALWINDER Dicyclomine HCl (Dicyclomine Hcl 10 Mg Capsule) 20 mg PO TID PRN PRN Reason: abdominal pain Docusate Sodium (Docusate Sodium 100 Mg Capsule) 100 mg PO BID PENDING SALE TO [facility] Last Admin: 10/28/21 08:03 Dose: 100 mg Documented By: BALWINDER Enoxaparin Sodium (Enoxaparin Sodium 40 Mg/0.4 Ml Syringe) 40 mg SUBCUT Q24H PENDING SALE TO [facility] Last Admin: 10/27/21 18:42 Dose: 40 mg Documented By: ZOFIA Lactated Ringer's (Lr) 1,000 mls @ 125 mls/hr IVCONT .Q8H PENDING SALE TO [facility] Last Admin: 10/28/21 09:34 Dose: 125 mls/hr Documented By: BALWINDER Insulin Human Lispro (Insulin Lispro 100 Unit/Ml 3 Ml Vial) 0 unit SUBCUT QIDACHS PENDING SALE TO [facility]; Protocol Last Admin: 10/28/21 07:19 Dose: Not Given Documented By: BALWINDER Non-Admin Reason: No Insulin Coverage Ketorolac Tromethamine (Ketorolac Tromethamine 15 Mg/Ml Vial) 15 mg IVPUSH Q6H PRN PRN Reason: Pain, Moderate (Pain Scale 4-6 Last Admin: 10/26/21 22:00 Dose: 15 mg Documented By: CASTMARINO Magnesium Oxide (Magnesium Oxide 400 Mg Tablet) 800 mg PO DAILY PENDING SALE TO [facility] Last Admin: 10/28/21 08:03 Dose: 800 mg Documented By: BALWINDER Omeprazole (Omeprazole 40 Mg Capsule.Dr) 40 mg PO DAILY@0630 PENDING SALE TO [facility] Last Admin: 10/28/21 05:46 Dose: 40 mg Documented By: ODDHARMESH Ondansetron HCl (Ondansetron Hcl 4 Mg/2 Ml Vial) 4 mg IVPUSH Q8H PRN PRN Reason: Nausea and Vomiting Pharmacy Consult (Consult Rx Perform Med Rec) 1 each MISCELLANE ONCE PRN PRN Reason: Consult order Pioglitazone HCl (Pioglitazone Hcl 15 Mg Tablet) 30 mg PO DAILY PENDING SALE TO [facility] Last Admin: 10/28/21 08:03 Dose: 30 mg Documented By: BALWINDER Sodium Chloride (0.9 % Sodium Chloride Flush 3 Ml Syringe) 3 ml IVFLUSH QSHIFT PENDING SALE TO [facility] Last Admin: 10/28/21 07:19 Dose: Not Given Documented By: BALWINDER Non-Admin Reason: IV Running Tamsulosin HCl (Tamsulosin Hcl 0.4 Mg Capsule) 0.4 mg PO DAILY PENDING SALE TO [facility] Last Admin: 10/28/21 08:03 Dose: 0.4 mg Documented By: BALWINDER Vitamin D (Cholecalciferol (Vitamin D3) 25 Mcg Tablet) 25 mcg PO DAILY PENDING SALE TO [facility] Last Admin: 10/28/21 08:03 Dose: 25 mcg Documented By: BALWINDER Labs CBC & Chem 7: 10/26/21 05:25 10/27/21 05:51 Labs: Laboratory Results - last 24 hr 10/27/21 10/27/21 10/28/21 15:20 19:27 05:12 POC Glucose 179 H 145 H Total Creatine Kinase 1914 H 10/28/21 10/28/21 06:49 11:09 POC Glucose 131 H 154 H Total Creatine Kinase Assessment and Plan (1) Physical deconditioning: Status: Acute (2) Rhabdomyolysis: Status: Acute Plan A 66 years old male with PMH of anxiety, chronic back pain, diabetes, HLD, IBS among others who presents to the hospital by EMS for recurrent falls. Rhabdomyolysis CPK trended down No kidney injury DC IV fluids Follow BMP and CPK Hypo magnesemia Likely secondary to malnutrition resolved continue daily supplement Anxiety, depression A seems to have underlying generalized anxiety causing him to be depressed To get care team evaluation and consider starting antidepressant with planned follow-up as outpatient with PCP Falls Secondary to physical deconditioning physical therapy recommended short-term rehab Type 2 diabetes SSI, diabetic diet Hypertension Hold lisinopril for soft blood pressure readings BPH continue tamsulosin DVT PPX Lovenox The patient will likely need Overnight hospital stay with plan for placement to prevent possible decompensation and recurrent falls. Quality Stroke Does the patient have a stroke diagnosis?: No VTE Prior VTE?: No VTE Risk Level:: Medical - moderate - high VTE Device Contraindication: Treatment Not Indicated VTE Drug Contraindication: N/A - Med Ordered
[2021-10-28] MEDS: Insulin Lispro 100 UNIT/ML 3 ML VIAL SUBCUT ×2 (12:04→16:37)
--- NOTE | 2021-10-28 12:54 | MHC.CM.PN ---
Addendum entered by Adrienne Alvarez 10/28/21 14:22: PT DAILY NOTE COMPLETED AND UPLOADED TO FACILITY. Original Note: [facility] IS OFFERING A BED. FACILITY HAS TO GO FOR AUTH. NEED NEW PT NOTE. WILL ALSO NEED COVID SWAB
[2021-10-28 13:08] LABS: Prostate Specific Antigen 0.79 ng/mL (<0.05-4.0)
--- NOTE | 2021-10-28 13:28 | MHC.CDI.CONC ---
CDI Concurrent Query Documentation Clarification: PHYSICIAN'S DOCUMENTATION REQUEST Date of Query: 10/28/21 1324 Patient Name: Burton Lofton Admit Date: 10/24/21 Dear Doctor, A review of the medical record indicates additional documentation may be needed. Please review below and update the documentation accordingly. Clinical Indicators: Documentation includes the diagnosis of malnutrition. Additional clinical indicators from the record include: Risk Factors/Clinical Indicators/Treatments HT 5'9 WT 128.6 kg BMI 41.9 Per MD progress note 10/28/21: Hypo magnesemia Likely secondary to malnutrition Per RD note 10/28/21: INCREASED DIET KCALS. DIET CHANGED TO DIABETIC 2000 KCALS. WEIGHT HX REVIEWED WITH CURRENT WEIGHT IN LINE WITH MOST RECENT WEIGHTS. SUSPECT WEIGHT=95 KG ERROR. ASPEN Criteria* Acute Illness Chronic Illness Clinical Characteristic Non-Severe (2 or more criteria present) Severe (2 or more criteria present) Non-Severe (2 or more criteria present) Severe (2 or more criteria present) Energy Intake <75% for >7 days <=50% for >=5 days <75% for >=1 month <=75% for >=1 month Weight Loss 1 week 1 ? 2% >2% N/A N/A 1 month 5% >5% 5% >5% 3 months 7.5 % >7.5% 7.5% >7.5% 6 months N/A N/A 10% >10% 1 year N/A N/A 20% >20% Body Fat Mild Moderate Mild Severe Muscle Mass Mild Moderate Mild Severe Fluid Accumulation Mild Moderate to Severe Mild Severe Reduced [employer]er Mus[employer] Equipment Strength N/A Measurably Reduced N/A Measurably Reduced *[facility] Hospitalist, 2017 If possible, please provide in your progress notes, additional specificity regarding the severity of the malnutrition using the above information: Mild Moderate Severe Other (please specify) Unable to determine Use of terms such as suspected, likely, concern for, or probable (associated with a specific diagnosis that is being evaluated, monitored, or treated as if it exists) are acceptable and can be coded in the inpatient setting, when documented at the time of discharge. Thank you, Fatuma Car RN Extension: [phone] Please use your independent medical judgment in providing your response. THIS QUERY IS PART OF THE PERMANENT MEDICAL RECORD Provider Response: Malnutrition Other Diagnosis: Other
[2021-10-28 15:36] VITALS: BP 118/58; PULSE 82; RESP 18; TEMP 36; O2SAT 96
[2021-10-28 15:51] LABS: Glucose, Whole Blood 178 mg/dL (60-115)
[2021-10-28] MEDS: 0.9 % Sodium Chloride Flush 3 ML SYRINGE IVFLUSH ×2 (16:38→19:48)
--- NOTE | 2021-10-28 16:58 | MHC.CARE ---
CARE team reviewed pt's chart. Consult placed for medication recommendations. This travel writer contacted Dr. Ortiz re: consulting psychiatry.
[2021-10-28] MEDS: Enoxaparin Sodium 40 MG/0.4 ML SYRINGE SUBCUT (19:44)
[2021-10-28 20:00] VITALS: BP 123/72; PULSE 84; RESP 18; TEMP 35.9; O2SAT 95
[2021-10-28 20:24] LABS: Glucose, Whole Blood 127 mg/dL (60-115)
[2021-10-29] VITALS: BP 118/68; PULSE 85; RESP 17; TEMP 36.7; O2SAT 97
[2021-10-29 04:00] VITALS: BP 126/74; PULSE 78; RESP 17; TEMP 36.6; O2SAT 95
[2021-10-29 07:14] VITALS: BP 134/64; PULSE 76; RESP 17; TEMP 36.5; O2SAT 97
[2021-10-29] MEDS: Magnesium Oxide 400 MG TABLET 800 MG PO (07:25)
[2021-10-29] MEDS: Tamsulosin HCL 0.4 MG CAPSULE PO (07:25)
[2021-10-29] MEDS: Cholecalciferol (Vitamin D3) 25 MCG TABLET PO (07:26)
[2021-10-29] MEDS: Atorvastatin Calcium 80 MG TABLET PO (07:26)
[2021-10-29] MEDS: Omeprazole 40 MG CAPSULE.DR PO (07:26)
[2021-10-29] MEDS: Docusate Sodium 100 MG CAPSULE PO (07:26)
[2021-10-29] MEDS: 0.9 % Sodium Chloride Flush 3 ML SYRINGE IVFLUSH (07:27)
[2021-10-29] MEDS: ALPRAZolam 0.5 MG TABLET 1 MG PO (07:33)
[2021-10-29 07:41] LABS: Glucose, Whole Blood 140 mg/dL (60-115)
--- NOTE | 2021-10-29 09:18 | MHC.CM.PN ---
Per MD, Patient will be medically cleared for dc to SNF/STR today. Patient will dc to [facility] today at 1PM, [facility]. IMM addressed with Patient at bedside and original has been given to him and a copy has been placed on the chart. Patient and is Jon/Marie @ [phone] are aware of and agreeable to the dc plan.
[2021-10-29] MEDS: Escitalopram Oxalate 10 MG TABLET PO (09:34)
[2021-10-29 09:45] LABS: COVID-19 Test Negative (Negative)
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
[2021-10-29 11:31] VITALS: BP 112/62; PULSE 95; RESP 16; TEMP 36.3; O2SAT 97
[2021-10-29 11:37] LABS: Glucose, Whole Blood 187 mg/dL (60-115)
[2021-10-29] MEDS: Insulin Lispro 100 UNIT/ML 3 ML VIAL SUBCUT (12:26)
== END 2021-10-29 14:00 | disposition skilled nursing facility (03) | DRG 558 ==
LOC: HO.ED 15:39 → HO.EDOVER 18:39 → HO.S3 10-25 17:36
PROVIDERS: Admitting Provider Student in an Organized Health Care Education/Training Program; Emergency Provider Emergency Medicine; PCP Internal Medicine; Visit Provider Student in an Organized Health Care Education/Training Program
DX: M62.82 Rhabdomyolysis (principal); E46 Unspecified protein-calorie malnutrition; Z68.41 Body mass index [BMI] 40.0-44.9, adult; N40.0 Benign prostatic hyperplasia without lower urinary tract symptoms; Z86.010 Personal history of colon polyps; E83.42 Hypomagnesemia; M54.9 Dorsalgia, unspecified; G89.29 Other chronic pain; E78.5 Hyperlipidemia, unspecified; F17.210 Nicotine dependence, cigarettes, uncomplicated; Z20.822 Contact with and (suspected) exposure to COVID-19; K58.1 Irritable bowel syndrome with constipation; R29.6 Repeated falls; R62.7 Adult failure to thrive; F41.1 Generalized anxiety disorder; F32.A Depression, unspecified; Z91.81 History of falling; Z71.6 Tobacco abuse counseling; Z91.041 Radiographic dye allergy status; Z88.0 Allergy status to penicillin; Z88.5 Allergy status to narcotic agent; Z88.6 Allergy status to analgesic agent; Z79.899 Other long term (current) drug therapy
CPT/HCPCS: 36415; 70450; 72125; 80048; 80076; 81003; 82550; 82947; 83735; 84153; 84484; 85025; 85027; 87635; 93005; 97162; 97530; 99285; J1650; J1885; J3475

== ENCOUNTER 2021-11-29 09:31 | Outpatient (REF) | payer OTHER, SELFPAY ==
[2021-11-29 10:28] LABS: Hematocrit 38.7 % (42.0-52.0); Hemoglobin 12.7 g/dl (14.0-18.0); Mean Corpuscular HGB Conc 32.8 g/dl (31.0-36.0); Mean Corpuscular Volume 91.3 fL (80.0-98.0); Platelet Count 210 X10*3/uL (160-400); Red Blood Count 4.24 X10*6/uL (4.60-5.80); Red Cell Distribution Width 13.9 % (11.0-16.0); White Blood Count 6.3 X10*3/uL (4.8-10.8)
[2021-11-29 10:45] LABS: Alanine Aminotransferase 16 U/L (0-40); Albumin Level 3.8 g/dL (3.5-5.0); Alkaline Phosphatase 77 U/L (39-117); Aspartate Amino Transferase 14 U/L (5-37); Lipase 18 U/L (8-78); Total Protein 5.8 g/dL (6.5-8.0)
[2021-11-29 10:56] LABS: Bilirubin Direct < 0.2 mg/dL (0.0-0.5); Bilirubin Total 0.2 mg/dL (0.0-1.0)
[2021-11-29 11:03] LABS: Ferritin 54 ng/mL (20-250)
[2021-12-02 12:37] LABS: Carbohydrate Antigen 19-9 6 U/mL (<34)
== END 2021-11-29 09:32 | disposition home or self-care (01) ==
LOC: HO.LAB 09:31
PROVIDERS: PCP Internal Medicine; Visit Provider Internal Medicine Gastroenterology
DX: R10.12 Left upper quadrant pain (principal); R11.0 Nausea; K59.09 Other constipation; K21.9 Gastro-esophageal reflux disease without esophagitis; K58.9 Irritable bowel syndrome, unspecified; Z86.010 Personal history of colon polyps
CPT/HCPCS: 36415; 80076; 82728; 83690; 85027; 86301; 99212

== ENCOUNTER → 2022-02-20 12:23 | Outpatient (BNVA) | payer OTHER, SELFPAY | PROVIDERS: PCP Internal Medicine; Visit Provider Internal Medicine Gastroenterology | DX: K58.9 Irritable bowel syndrome, unspecified (principal); K21.9 Gastro-esophageal reflux disease without esophagitis; K59.09 Other constipation; R10.12 Left upper quadrant pain; R11.0 Nausea; Z86.010 Personal history of colon polyps | CPT/HCPCS: Q3014 ==

== ENCOUNTER 2022-04-04 10:32 | Outpatient (REF) | payer OTHER, SELFPAY ==
[2022-04-04 13:17] LABS: Hematocrit 44.9 % (42.0-52.0); Hemoglobin 15.2 g/dl (14.0-18.0); Mean Corpuscular HGB Conc 33.9 g/dl (31.0-36.0); Mean Corpuscular Hemoglobin 29.7 pg (27.0-33.0); Mean Corpuscular Volume 87.7 fL (80.0-98.0); Mean Platelet Volume 10.1 fL (9.4-12.4); Platelet Count 267 X10*3/uL (160-400); Red Blood Count 5.12 X10*6/uL (4.60-5.80); Red Cell Distribution Width 13.3 % (11.0-16.0)
[2022-04-04 13:53] LABS: Alanine Aminotransferase 12 U/L (0-40); Albumin Level 4.3 g/dL (3.5-5.0); Alkaline Phosphatase 92 U/L (39-117); Anion Gap 15 (12-20); Aspartate Amino Transferase 13 U/L (5-37); Bilirubin Total 0.3 mg/dL (0.0-1.0); Blood Urea Nitrogen 15 mg/dL (9-16); Calcium 9.9 mg/dL (8.4-10.2); Carbon Dioxide 26 mmol/L (22-29); Chloride 102 mmol/L (96-108); Estimated Glomerular Filt Rate > 60; Glucose Random 101 mg/dL (60-115); Magnesium 1.5 mg/dL (1.6-2.6); Potassium 4.1 mmol/L (3.3-5.1); Sodium 139 mmol/L (135-145); Total Protein 6.9 g/dL (6.5-8.0)
[2022-04-04 14:07] LABS: Vitamin D 25-OH Total 29.2 ng/mL (>30)
[2022-04-04 14:17] LABS: Folate 7.8 ng/mL (> or = 4.0); Vitamin B12 294 pg/mL (200-900)
== END 2022-04-04 10:33 | disposition home or self-care (01) ==
LOC: HO.10HDL 10:32
PROVIDERS: Visit Provider Nurse Practitioner Family
DX: R25.2 Cramp and spasm (principal)
CPT/HCPCS: 36415; 80053; 82306; 82607; 82746; 83735; 85027

== ENCOUNTER 2022-07-14 13:25 | Outpatient (REF) | payer OTHER, SELFPAY ==
[2022-07-14 14:49] LABS: Magnesium 1.5 mg/dL (1.6-2.6)
[2022-07-16 18:49] LABS: Transglutaminase IgA <1.0 U/mL
== END 2022-07-14 13:26 | disposition home or self-care (01) ==
LOC: HO.LAB 13:25
PROVIDERS: Nurse Practitioner Family; PCP Internal Medicine; Visit Provider Internal Medicine
DX: E11.65 Type 2 diabetes mellitus with hyperglycemia (principal); E83.42 Hypomagnesemia
CPT/HCPCS: 36415; 83735; 86364

== ENCOUNTER → 2022-07-29 13:20 | Outpatient (BNVA) | payer OTHER, SELFPAY | PROVIDERS: PCP Internal Medicine; Visit Provider Urology | DX: N40.0 Benign prostatic hyperplasia without lower urinary tract symptoms (principal) | CPT/HCPCS: 51798; 99212 ==

== ENCOUNTER 2022-09-24 12:45 | Outpatient (AMB) | payer OTHER, SELFPAY ==
[2022-09-24 12:56] VITALS: BP 138/88; PULSE 84; O2SAT 96; BMI 41.8
--- NOTE | 2022-09-24 12:56 | A.OFFPC_ITS ---
Vital Signs 09/24/22 12:56 Height 5 ft 11 in Weight 300 lb BMI 41.8 BP 138/88 Blood Pressure Location Lt brachial Position Sitting Pulse 84 Pulse Source Pulse Oximeter Pulse Oximetry (%) 96 Oxygen Delivery Method Room Air Intake Visit Reasons: DM Allergies Iodinated Contrast Media [IV CONTRAST] Allergy (Intermediate, Verified 09/24/22 12:57) HIVES aspirin [From Percodan] Allergy (Unknown, Verified 09/24/22 12:57) Unknown codeine [CODEINE] Allergy (Unknown, Verified 09/24/22 12:57) DIFFICULTY BREATHING metformin Allergy (Unknown, Verified 09/24/22 12:57) Diarrhea oxycodone [From PERCOCET] Allergy (Unknown, Verified 09/24/22 12:57) DIFF BREATHING Penicillins [PENICILLINS] Allergy (Unknown, Verified 09/24/22 12:57) DIFFICULTY BREATHING Medication List - Last Reconciled 09/24/22 by Mak Devlin MD acetaminophen ER 650 mg PO Q8H PRN alprazolam 1 mg PO BID PRN blood sugar diagnostic (FreeStyle Lite Strips) USE TO TEST FINGER STICK BLOOD SUGAR two (2) times a day blood sugar diagnostic (FreeStyle Lite Strips) As directed check the BS BID blood-glucose meter (FreeStyle Lite Meter kit) As directed cholecalciferol (vitamin D3) 25 mcg PO DAILY 30 days cholestyramine-aspartame 4 gram (Cholestyramine Light) 4 grams PO TID 2 days clotrimazole 1% 1 appl topical BID 4 weeks dicyclomine 20 mg PO TID PRN docusate sodium 100 mg PO BID escitalopram oxalate 10 mg PO DAILY 90 days fluticasone propionate 50 mcg/actuation (Flonase Allergy Relief) 1 spray intranasal DAILY gabapentin 300 mg PO BEDTIME hyoscyamine sulfate (Levsin) 0.125 mg PO BID-QID PRN 30 days lancets (FreeStyle Lancets) As directed check the blood sugars twice a day lisinopril 30 mg PO DAILY 90 days melatonin 3 mg PO BEDTIME PRN nystatin 1 appl topical BID 15 days omeprazole 40 mg PO DAILY 90 days ondansetron 8 mg PO Q12H PRN pioglitazone 30 mg PO DAILY plecanatide (Trulance) 3 mg PO DAILY 60 days rosuvastatin 40 mg PO DAILY semaglutide 0.5 mg (0.4 mL) subcut QWEEK sucralfate (Carafate) 1 g PO BID tamsulosin 0.4 mg PO DAILY Tobacco use date assessed: 03/25/22 Fall risk assessment: No Falls in past year Last assessed Fall Risk: 09/24/22 Dental Screening Dental Screen Date: 09/24/22 Did you have a dental visit in the last 12 months?: No Did you have a dental problem in the last 6 months where you did not have access to dental care?: No Was dental information given to patient?: No HPI DM HPI Details 67-year-old obese male smoker with diabetes mellitus GERD hypertension hypercholesterolemia last seen in June 2022. Blood work was requested. Colonoscopy is up-to-date. cough with a clear sputum. knows seen by urology US and urine is clear. PAtient brought in a list of cancer and was told there is none.PAtent is asking for nystatin. Patient has been able to get the ozempic but still believes he has pancreatic problem. PAtient has seen GI already and explained to him that he does not have the problem. state wants lomotil. PAtient concerned about prostate problem and asking for a rectal. [facility] Medical History (Updated 09/24/22 @ 13:35 by Mak Devlin MD) Adult failure to thrive Anemia Anxiety and depression Bilateral arm fractures Bilateral hand numbness Bilateral leg cramps BPH (benign prostatic hyperplasia) Zahida onychomycosis Chronic back pain Chronic constipation Cough Dark stools Flank pain Headache History of colon polyps History of COVID-19 (~02/27/21) History of drug abuse Hypercholesterolemia Hypertension LUQ abdominal pain Multiple joint pain Nausea Obesity (BMI 30-39.9) Physical deconditioning Pulmonary nodule, right Sinusitis Tinea cruris Type 2 diabetes mellitus with hyperglycemia Weight loss, unintentional Surgical History Hx of colonoscopy (07/06/12) Hx of esophagogastroduodenoscopy (11/18/11) S/P cholecystectomy Family History Father Kidney tumor Heart attack Mother Kidney failure Lung cancer Diabetes CHF (congestive heart failure) Maternal Grandmother Gallbladder gangrene Sister Arthritis High blood pressure High cholesterol Cirrhosis of liver Sister No problems noted. Brother Heart attack High cholesterol Sister CHF (congestive heart failure) Diabetes Other Mental health disorder Social History Household Members: None Housing: Other Housing Other:: [facility] Do you presently have visiting nurse or other home services: No Alcohol intake: former Patient Tobacco Use Status: Current everyday Tobacco user Tobacco use type: Cigarette Cigarette Packs Per Day: 1 Cigarettes Per Day: 20.0 e-Cigarette/Vaping Use: Never Used Second Hand Smoke Exposure: Yes Advance Directives Date on File: 07/29/21 service: No Current occupational status: retired and disabled Cognitive needs: No Hearing needs: No Vision needs: Yes (reading glasses) Questionnaire PHQ-9 Over the last 2 weeks, how often have you been bothered by any of the following problems? 1. Little interest or pleasure in doing things: several days 2. Feeling down, depressed, or hopeless: nearly every day 3. Trouble falling or staying asleep, or sleeping too much: nearly every day 4. Feeling tired or having little energy: nearly every day 5. Poor appetite or overeating: not at all 6. Feeling bad about yourself - or that you are a failure or have let yourself or your family down: nearly every day 7. Trouble concentrating on things, such as reading the newspaper or watching television: nearly every day 8. Moving or speaking so slowly that other people could have noticed. Or the opposite - being so fidgety or restless that you have been moving around a lot more than usual: nearly every day 9. Thoughts that you would be better off or of hurting yourself in some way: not at all Total score: 19 Depression Screening Interpretation: Positive Depression Screening Follow-up: Declines treatment 83109 - PHQ-9 Billing: Yes Source: Developed by Drs. Nestor Boyce, Darlene Don, Warren Leblanc and colleagues, with an educational bhavna from [employer]. Thrive Questionnaire Date Thrive assessed: 03/25/22 AUDIT C Alcohol Use Questionnaire (AUDIT-C) 1. How often do you have a drink containing alcohol?: Never 2. How many drinks containing alcohol do you have on a typical day when you are drinking?: 1 or 2 (0) 3. How often do you have six or more drinks on one occasion?: Never Total Score: 0 Score Reviewed/Action Taken: No NONI-7 AMB Questionnaire NONI-7 Date NONI - 7 assessed: 03/25/22 Source: Developed by Drs. Nestor Boyce, Darlene Don, Warren Leblanc and colleagues, with an educational bhavna from [employer]. Physical exam (Primary Care) Vital Signs: Last Vital Signs Pulse 84 09/24/22 12:56 BP 138/88 09/24/22 12:56 Pulse Ox 96 09/24/22 12:56 Oxygen Delivery Method Room Air 09/24/22 12:56 Care Plan Goal for BP management: rectal exam negative guaiac and prostate N BMI result Body Mass Index 41.8 Tobacco/Smoking Status: Tobacco use Status Tobacco use date assessed 03/25/22 09/24/22 12:57 Patient Tobacco Use Status Current everyday Tobacco 09/24/22 12:57 Tobacco use type Cigarette 09/24/22 12:57 e-Cigarette/Vaping Use Never Used 09/24/22 12:57 PHQ-9: PHQ-9 Score PHQ-9: Total score 19 09/24/22 13:16 Depression Screening Interpretation: Positive Depression Screening Follow-up: Declines treatment Thrive Assessment: Date of Thrive Assessment Date Thrive assessed 03/25/22 09/24/22 12:57 Const General: alert; No acute distress Eyes Conjunctivae: conjunctivae normal Resp Auscultation: clear to auscultation bilaterally Cardio Rate: regular rate Rhythm: regular rhythm GI Inspection: Yes normal to inspection Extrem General: Yes normal to inspection and No edema Results AMB Hemoglobin A1c AMB Hemoglobin A1c 5.9 % Last Edit by Zenia Dietrich CMA on 09/24/22 13 :17 Results Reviewed Results Reviewed: Laboratory Last Values Hgb A1c (Clinic) 5.9 % (4.0-6.0) 09/24/22 12:58 Assessment and Plan Assessment & Plan (1) Tobacco abuse: Code(s): Z72.0 - Tobacco use Plan: Patient is strongly advised to stop smoking ! (2) Type 2 diabetes mellitus with hyperglycemia: Comment: decline eye doctor 09/2022 Code(s): E11.65 - Type 2 diabetes mellitus with hyperglycemia Qualifiers: Diabetes mellitus custodial insulin use: without watermelon harvesting supervisor use Qualified Code(s): E11.65 - Type 2 diabetes mellitus with hyperglycemia Plan: Decrease the amount of carbohydrate intake, pasta, bread, rice and potatoes are all sugar and that is aside from all the sweet stuff, remember that fruits are good but they are Sweet also. Hemoglobin A1c goal of less than 7.0 patient is taking pioglitazone 30 mg once a day 72 tied 0.25 every week (3) Obesity (BMI 30-39.9): Code(s): E66.9 - Obesity, unspecified Plan: Diet and exercise (4) Hypertension: Code(s): I10 - Essential (primary) hypertension Qualifiers: Hypertension type: essential hypertension Qualified Code(s): I10 - Essential (primary) hypertension Plan: Continue with blood pressure medication. Decrease salt intake and exercise patient is on lisinopril 30 mg once a day (5) GERD (gastroesophageal reflux disease): Comment: Barretts esophagus GEJ Bx 2008, NEG 2011. Sm hiatal hernia (EGD 10/2008). Code(s): K21.9 - Gastro-esophageal reflux disease without esophagitis Plan: Avoid the foods that causes that usually spicy foods, tomato products, juices, coffee, soda and foods that your sensitive to. After eating do not lie down, allow 3-4 hours before in lie down. And keep the head of bed above 30 degrees to avoid the acid from going up. (6) Generalized anxiety disorder: Code(s): F41.1 - Generalized anxiety disorder Plan: Continue with present medication with discussion on the importance of counseling (7) Hypercholesterolemia: Code(s): E78.00 - Pure hypercholesterolemia, unspecified Plan: Avoid fried foods, chicken skin, eggs, butter margarine, pastries and meat. Be it pork or beef they have a lot of cholesterol LDL goal of less than 100 and triglyceride of less than 150 patient is on rosuvastatin 40 mg once a day (8) BPH (benign prostatic hyperplasia): Code(s): N40.0 - Benign prostatic hyperplasia without lower urinary tract symptoms Plan: Patient continues to follow-up with Urology. Continue with medications Orders: Orders AMB Hemoglobin A1c Today Z13.9 - Encounter for screening, unspecified Medications: New gabapentin 300 mg PO BEDTIME 30 caps 3RF M54.5 - Low back pain sucralfate (Carafate) 1 g PO BID 60 tabs 0RF K21.9 - Gastro-esophageal reflux disease without esophagitis Changed From ondansetron 4 mg PO Q12H PRN 10 tabs 0RF nausea and vomiting R11.0 - Nausea To ondansetron 8 mg PO Q12H PRN 14 tabs 0RF nausea and vomiting R11.0 - Nausea From semaglutide 0.25 mg (0.2 mL) subcut QWEEK 1.5 mL 0RF B35.6 - Tinea cruris To semaglutide 0.5 mg (0.4 mL) subcut QWEEK 1.5 mL 0RF B35.6 - Tinea cruris From escitalopram oxalate 10 mg PO DAILY 90 days 90 tabs 1RF F41.1 - Generalized anxiety disorder To escitalopram oxalate 20 mg PO DAILY 90 days 90 tabs 1RF F41.1 - Generalized anxiety disorder Discontinued clotrimazole 1% Discontinued Reason: Ancillary Entered New Order 1 appl topical BID 30 days 45 grams 0RF B37.2 - Candidiasis of skin and nail promethazine Discontinued Reason: Change Referral Type 25 mg PO BID 30 days PRN 30 tabs 3RF for nausea/vomiting R11.0 - Nausea Coding Level of Care Code Est Pt Level 4 (60849) Diagnoses Tobacco abuse Z72.0 Type 2 diabetes mellitus with hyperglycemia E11.65 Diabetes mellitus watermelon harvesting supervisor insulin use: without custodial use Obesity (BMI 30-39.9) E66.9 Hypertension I10 Hypertension type: essential hypertension GERD (gastroesophageal reflux disease) K21.9 Generalized anxiety disorder F41.1 Hypercholesterolemia E78.00 BPH (benign prostatic hyperplasia) N40.0
== END 2022-09-24 13:41 | disposition home or self-care (01) ==
PROVIDERS: Visit Provider Internal Medicine
DX: E11.65 Type 2 diabetes mellitus with hyperglycemia (principal); E66.9 Obesity, unspecified; Z68.41 Body mass index [BMI] 40.0-44.9, adult; I10 Essential (primary) hypertension; K21.9 Gastro-esophageal reflux disease without esophagitis; Z72.0 Tobacco use; F41.1 Generalized anxiety disorder; N40.0 Benign prostatic hyperplasia without lower urinary tract symptoms; E78.00 Pure hypercholesterolemia, unspecified
CPT/HCPCS: 83036; 99214

== ENCOUNTER 2022-10-09 12:46 | Outpatient (REF) | payer OTHER, SELFPAY ==
[2022-10-09 14:26] LABS: Appearance Urine Clear; Color Urine Yellow; Glucose Urine UA Negative (Negative); Leukocyte Esterase Urine Negative (Negative); Nitrite Urine Negative (Negative); Specific Gravity - Urine >= 1.030 (1.005-1.025); Urine Blood Negative (Negative); Urine Ketones Negative (Negative); Urine Protein Trace mg/dL (Neg-Trace)
[2022-10-09 14:32] LABS: Bacteria Urine None Seen (None Seen); Hyaline Casts Urine 0-2 /LPF (0-2); RBC Urine 0-2 /HPF (0-2); Squamous Epithelial Cell Urine 0-2 /HPF (0-2); WBC Urine 0-5 /HPF (0-5)
== END 2022-10-09 12:47 | disposition home or self-care (01) ==
LOC: HO.10HDL 12:46
PROVIDERS: Visit Provider Urology
DX: N39.0 Urinary tract infection, site not specified (principal); R31.29 Other microscopic hematuria
CPT/HCPCS: 81001; 87086

== ENCOUNTER 2022-10-16 12:21 | Inpatient (IN) | payer OTHER, SELFPAY ==
--- NOTE | ~2022-10-16 | XR_ITS ---
EXAMINATION: Chest one view. CLINICAL INDICATIONS: Generalized weakness. COMPARISON: Chest 10/17/2021. TECHNIQUE: One view chest. FINDINGS: The lungs are well-expanded and clear of acute pneumonic process. The heart size and pulmonary vascularity is normal. There is no pleural effusion or pneumothorax. No gross bony abnormality seen. XR/XR lumbar spine 2-3V IMPRESSION: No acute cardiopulmonary process seen. No change from previous exam 10/17/2021.
--- NOTE | ~2022-10-16 | XR_ITS ---
EXAMINATION: XR ELBOW, RIGHT CLINICAL INFORMATION: Pain and swelling COMPARISON: None available. TECHNIQUE: Three views of the right elbow. FINDINGS: No fracture. No dislocation. No joint effusion. Joint space is preserved. No focal bone lesion or abnormal periosteal reaction. No soft tissue calcification. Orthopedic plate and screw at mid shaft radius and ulna partially visualized. XR/XR elbow RT min 3V IMPRESSION: 1. Normal right elbow. 2. Orthopedic plate and screw at mid shaft radius and ulna.
--- NOTE | ~2022-10-16 | XR_ITS ---
EXAMINATION: Chest one view. CLINICAL INDICATIONS: Generalized weakness. COMPARISON: Chest 10/17/2021. TECHNIQUE: One view chest. FINDINGS: The lungs are well-expanded and clear of acute pneumonic process. The heart size and pulmonary vascularity is normal. There is no pleural effusion or pneumothorax. No gross bony abnormality seen. XR/XR chest 1V IMPRESSION: No acute cardiopulmonary process seen. No change from previous exam 10/17/2021.
[2022-10-16 12:29] VITALS: BP 110/72; BP 120/70; PULSE 100; PULSE 96; RESP 16; TEMP 36.7; O2SAT 97; O2SAT 98; BMI 43.9
--- NOTE | 2022-10-16 12:54 | PC.NURSE ---
pt arrived via ems; per ems pt was found on floor by visiting nurse; pt denied fall/headstrike/loc. pt states he felt he wanted to lay on the cold floor d/t chronic bilat leg and lower back pain; on floor approx 1 hour per pt. pt axox3, vss, respirations even and unlabored, sats 96% RA, nsr on monitor 95 bpm, skin wpd. skin intact. all needs met at this time; awaiting primary eval;call hopkins within reach.
--- NOTE | 2022-10-16 13:36 | ECG_ITS ---
Test Reason : CHEST PAIN Blood Pressure : / mmHG Vent. 

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
[2022-10-16] MEDS: Acetaminophen 325 MG TABLET 975 MG PO (14:14)
[2022-10-16 14:22] VITALS: BP 110/72; PULSE 96; O2SAT 98
[2022-10-16 14:26] LABS: MANUAL DIFF FLAG NO
[2022-10-16 14:28] LABS: Basophils Absolute Auto 0.1 X10*3/uL (0.0-0.2); Basophils Percent Auto 0.5 % (0-2); Eosinophils Absolute Auto 0.2 X10*3/uL (0.0-0.4); Eosinophils Percent Auto 1.8 % (0-4); Hemoglobin 15.2 g/dl (14.0-18.0); Imm Gran Abs Auto 0.04 X10*3/uL (0.00-0.03); Imm Gran Pct Auto 0.4 % (0.0-0.4); Lymphocytes Absolute Auto 1.5 X10*3/uL (1.2-4.9); Mean Corpuscular HGB Conc 33.8 g/dl (31.0-36.0); Mean Corpuscular Hemoglobin 31.1 pg (27.0-33.0); Mean Platelet Volume 9.7 fL (9.4-12.4); Monocytes Absolute Auto 0.7 X10*3/uL (0.1-1.2); Monocytes Percent Auto 7.6 % (2-11); Neutrophils Absolute Auto 7.1 x10*3/uL (2.0-8.3); Neutrophils Percent Auto 73.7 % (45-73); Platelet Count 251 X10*3/uL (160-400); Red Blood Count 4.89 X10*6/uL (4.60-5.80); White Blood Count 9.6 X10*3/uL (4.8-10.8)
[2022-10-16 14:42] LABS: Estimated Average Glucose 120 mg/dL; Hemoglobin A1c % 5.8 %
[2022-10-16 14:44] LABS: COVID-19 Test Negative (Negative); IDNOW Serial# BCCEAD1C
[2022-10-16 14:49] LABS: Alanine Aminotransferase 21 U/L (0-40); Albumin Level 4.2 g/dL (3.5-5.0); Alkaline Phosphatase 79 U/L (39-117); Anion Gap 15 (12-20); Aspartate Amino Transferase 45 U/L (5-37); Bilirubin Total 0.5 mg/dL (0.0-1.0); Blood Urea Nitrogen 9 mg/dL (9-16); Carbon Dioxide 23 mmol/L (22-29); Chloride 107 mmol/L (96-108); Creatinine Clr Calc Pharmacy 114.3; Estimated Glomerular Filt Rate > 60; Glucose Random 105 mg/dL (60-115); Potassium 3.5 mmol/L (3.3-5.1); Sodium 141 mmol/L (135-145)
[2022-10-16 15:06] LABS: TSH reflex Free T4 1.75 uIU/mL (0.32-4.0)
[2022-10-16] MEDS: 0.9 % Sodium Chloride 1,000 ML 999 ML IV (15:15)
--- NOTE | 2022-10-16 15:19 | PHA.MEDREC ---
Pharmacy Consult ? Medication Reconciliation Pharmacy has completed the medication reconciliation. Spoke to patient to confirm meds. Clotrimazole, flonase, magnesium, and trulance were not on patient's med list, however patient confirmed the medications themselves and attested to still taking them.
--- NOTE | 2022-10-16 18:10 | PC.NURSE ---
Arrived from ED at 1800. A?Ox3. High fall risk. UA pending. Will cont to monitor.
--- NOTE | 2022-10-16 18:42 | MHC.CM.ED ---
CM met with patient in regards to discharge planning. Pt is pleasant and cooperative. A&Ox4. Pt is dishevelled and very unkempt. Lives in a motel. Has services through [facility] for CLOAK ROOM ATTENDANT and SN. Pt tells CM that CLOAK ROOM ATTENDANT services have not yet started. Pt has a nurse q am and pm for medication management. Pt has locked med box at home. PT is recommending STR. Pt is hesitant, as he does not want to lose his motel room. CM spoke to patient at length regarding PT recommendations and his weakness and hx of falls. Pt is agreeable to local referrals for STR. Will decide when bed offers are made. PCP is Dr. Devlin. Pt also sees Dr. Stephens and Dr Tobias. Pt is unvaccinated and will not receive the vaccine. HCP on file is . HCP reviewed, completed and signed. Copies given. Uploaded into [employer] and [facility] [employer]. HCP#1/yareli Howe ([phone] and HCP #2/rupert Mcguire ([phone]). Per PT recommendations, if pt chooses to discharge to home, he should be given a front wheeled walker and home PT services. Local referrals placed to facilities that contract with [facility]. CM will follow for discharge planning.
[2022-10-16 19:00] VITALS: BP 120/69; PULSE 80
[2022-10-16] MEDS: Nitroglycerin 0.4 MG TAB.SUBL SUBLINGUAL (19:00)
[2022-10-16] MEDS: Ketorolac Tromethamine 15 MG/ML VIAL IVPUSH (19:00)
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
[2022-10-16] MEDS: 0.9 % Sodium Chloride 1,000 ML 125 ML IVCONT (20:32)
[2022-10-16] MEDS: Gabapentin 300 MG CAPSULE PO (20:33)
[2022-10-16] MEDS: Melatonin 3 MG TABLET 6 MG PO (20:34)
[2022-10-16] MEDS: Enoxaparin Sodium 40 MG/0.4 ML SYRINGE SUBCUT (20:35)
[2022-10-16 20:42] LABS: Glucose, Whole Blood 171 mg/dL (60-115)
[2022-10-16 21:07] LABS: Magnesium 1.8 mg/dL (1.6-2.6)
--- NOTE | 2022-10-16 21:14 | MHC.CM.PN ---
LORI 10/16. 413 CARES given to patient. [facility], transportation concerns. Pt has [employer] insurance and has a hospitalist program director. Spoke with Dr. Gaines regarding concerns about patient's right elbow. Elbow noted redness, edema and warmth. Pt admits to falling on arm. ? cellulitis. Pt awaiting room assignment. CM following for discharge needs.
[2022-10-16] MEDS: Insulin Lispro 100 UNIT/ML 3 ML VIAL SUBCUT (21:22)
[2022-10-16] MEDS: Sucralfate 1 GM TABLET PO (21:23)
[2022-10-16 22:30] VITALS: BP 110/67; PULSE 80; O2SAT 94
[2022-10-17] MEDS: 0.9 % Sodium Chloride 1,000 ML 125 ML IVCONT ×3 (01:06→21:38)
[2022-10-17] MEDS: 0.9 % Sodium Chloride Flush 3 ML SYRINGE IVFLUSH (01:08)
[2022-10-17 04:51] LABS: MANUAL DIFF FLAG NO
[2022-10-17 04:54] LABS: Basophils Absolute Auto 0.1 X10*3/uL (0.0-0.2); Basophils Percent Auto 0.7 % (0-2); Eosinophils Absolute Auto 0.2 X10*3/uL (0.0-0.4); Eosinophils Percent Auto 3.5 % (0-4); Hematocrit 40.2 % (42.0-52.0); Hemoglobin 13.4 g/dl (14.0-18.0); Imm Gran Abs Auto 0.02 X10*3/uL (0.00-0.03); Imm Gran Pct Auto 0.3 % (0.0-0.4); Lymphocytes Absolute Auto 1.7 X10*3/uL (1.2-4.9); Lymphocytes Percent Auto 24.8 % (20-40); Mean Corpuscular HGB Conc 33.3 g/dl (31.0-36.0); Mean Corpuscular Hemoglobin 31.8 pg (27.0-33.0); Mean Corpuscular Volume 95.3 fL (80.0-98.0); Mean Platelet Volume 9.9 fL (9.4-12.4); Monocytes Absolute Auto 0.6 X10*3/uL (0.1-1.2); Monocytes Percent Auto 9.2 % (2-11); Neutrophils Absolute Auto 4.2 x10*3/uL (2.0-8.3); Neutrophils Percent Auto 61.5 % (45-73); Platelet Count 201 X10*3/uL (160-400); Red Blood Count 4.22 X10*6/uL (4.60-5.80); Red Cell Distribution Width 13.1 % (11.0-16.0); White Blood Count 6.8 X10*3/uL (4.8-10.8)
[2022-10-17 05:12] LABS: Anion Gap 14 (12-20); Blood Urea Nitrogen 11 mg/dL (9-16); Carbon Dioxide 21 mmol/L (22-29); Chloride 110 mmol/L (96-108); Creatinine Clr Calc Pharmacy 134.2; Estimated Glomerular Filt Rate > 60; Glucose Random 93 mg/dL (60-115); Potassium 3.2 mmol/L (3.3-5.1); Sodium 142 mmol/L (135-145)
[2022-10-17 05:33] VITALS: BP 122/69; PULSE 71; RESP 18; TEMP 36.1; O2SAT 96
--- NOTE | 2022-10-17 05:42 | PC.NURSE ---
patient report was given to the receiving nurse pravin patient will be transported with no issues safety is maintained
[2022-10-17 06:02] VITALS: BMI 42.5
[2022-10-17 06:13] VITALS: BP 118/69; PULSE 73; RESP 18; TEMP 36.1; O2SAT 97
[2022-10-17] MEDS: Omeprazole 40 MG CAPSULE.DR PO (06:25)
[2022-10-17 07:27] VITALS: BP 115/53; PULSE 74; RESP 18; TEMP 36.4; O2SAT 98
[2022-10-17 07:36] LABS: Glucose, Whole Blood 89 mg/dL (60-115)
[2022-10-17] MEDS: lisinopriL 10 MG TABLET 30 MG PO (08:09)
[2022-10-17] MEDS: Pioglitazone HCL 30 MG TABLET PO (08:09)
[2022-10-17] MEDS: Tamsulosin HCL 0.4 MG CAPSULE PO (08:09)
[2022-10-17] MEDS: Cholecalciferol (Vitamin D3) 25 MCG TABLET PO (08:10)
[2022-10-17] MEDS: Sucralfate 1 GM TABLET PO ×2 (08:10→21:31)
[2022-10-17] MEDS: Escitalopram Oxalate 20 MG TABLET PO (08:10)
[2022-10-17] MEDS: Magnesium Oxide 400 MG TABLET PO (08:10)
--- NOTE | 2022-10-17 08:17 | HO.PM.IMPN ---
Subjective Subjective Date of Service: 10/17/22 Interval History: f/u on fall, appear mechanical, no new issues Physical Exam Vital Signs: Vital Signs: Last Vital Signs Temp 97.6 F 10/17/22 07:27 Pulse 74 10/17/22 07:27 Resp 18 10/17/22 07:27 BP 115/53 L 10/17/22 07:27 Pulse Ox 98 10/17/22 07:27 O2 Del Method Room Air 10/17/22 07:27 BMI result Body Mass Index 42.5 Const: Other: General: AO X 3, no acute distress Resp: CTA bilateral CVS: S1,S2,RRR GI: +BS, NT, no distention Skin: No rash Neuro: motor grossly intact Psych: appropriate affect Objective Data Active Medications Acetaminophen (Acetaminophen 325 Mg Tablet) 650 mg PO Q6H PRN PRN Reason: Pain, Mild (Pain Scale 1-3) Alprazolam (Alprazolam 0.5 Mg Tablet) 1 mg PO BID PRN PRN Reason: anxiety Clotrimazole (Clotrimazole 1 % Cream 15 Gm Tube) 1 appl TOPICAL BID PRN; Protocol PRN Reason: jock itch / toe fungus Dextrose (Dextrose 50 % 25 Gm/50 Ml Syringe) 25 gm IVPUSH Q15M PRN; Protocol PRN Reason: per Hypoglycemia Standing Ord. Dicyclomine HCl (Dicyclomine Hcl 10 Mg Capsule) 20 mg PO TID PRN PRN Reason: for abdominal pain Enoxaparin Sodium (Enoxaparin Sodium 40 Mg/0.4 Ml Syringe) 40 mg SUBCUT Q24H [facility] Last Admin: 10/16/22 20:35 Dose: 40 mg Documented By: ARELY Escitalopram Oxalate (Escitalopram Oxalate 20 Mg Tablet) 20 mg PO DAILY [facility] Last Admin: 10/17/22 08:10 Dose: 20 mg Documented By: BALWINDER Fluticasone Propionate (Fluticasone Propionate Nasal 16 Gm [place]) 1 spray NOSTRIL-B DAILY PRN PRN Reason: Allergy Symptoms Gabapentin (Gabapentin 300 Mg Capsule) 300 mg PO BEDTIME [facility] Last Admin: 10/16/22 20:33 Dose: 300 mg Documented By: ARELY Glucose (Glucose Gel 15 Gm Gel..Gram.) 15 gm PO Q15M PRN; Protocol PRN Reason: per Hypoglycemia Standing Ord. Sodium Chloride (Ns) 1,000 mls @ 125 mls/hr IVCONT .Q8H [facility] Last Infusion: 10/17/22 05:41 Dose: 125 mls/hr Documented By: ARELY Insulin Human Lispro (Insulin Lispro 100 Unit/Ml 3 Ml Vial) 0 unit SUBCUT QIDACHS [facility]; Protocol Last Admin: 10/17/22 07:41 Dose: Not Given Documented By: BALWINDER Non-Admin Reason: No Insulin Coverage Lisinopril (Lisinopril 10 Mg Tablet) 30 mg PO DAILY [facility]; Protocol Last Admin: 10/17/22 08:09 Dose: 30 mg Documented By: BALWINDER Magnesium Oxide (Magnesium Oxide 400 Mg Tablet) 400 mg PO DAILY [facility] Last Admin: 10/17/22 08:10 Dose: 400 mg Documented By: BALWINDER Melatonin (Melatonin 3 Mg Tablet) 3 mg PO BEDTIME PRN PRN Reason: sleep Melatonin (Melatonin 3 Mg Tablet) 6 mg PO BEDTIME PRN PRN Reason: Insomnia Last Admin: 10/16/22 20:34 Dose: 6 mg Documented By: ARELY Non-Formulary Medication (Plecanatide [Trulance]) 3 mg PO DAILY [facility] Omeprazole (Omeprazole 40 Mg Capsule.Dr) 40 mg PO DAILY@0630 [facility] Last Admin: 10/17/22 06:25 Dose: 40 mg Documented By: YOLANDE Ondansetron HCl (Ondansetron Odt 8 Mg Tab.Rapdis) 8 mg TRANSLINGU Q12H PRN PRN Reason: nausea and vomiting Ondansetron HCl (Ondansetron Hcl 4 Mg/2 Ml Vial) 4 mg IVPUSH Q8H PRN PRN Reason: Nausea and Vomiting Pharmacy Consult (Consult Rx Perform Med Rec) 1 each MISCELLANE ONCE PRN PRN Reason: Consult order Pioglitazone HCl (Pioglitazone Hcl 30 Mg Tablet) 30 mg PO DAILY [facility] Last Admin: 10/17/22 08:09 Dose: 30 mg Documented By: BALWINDER Sodium Chloride (0.9 % Sodium Chloride Flush 3 Ml Syringe) 3 ml IVFLUSH QSHIFT [facility] Last Admin: 10/17/22 07:42 Dose: Not Given Documented By: BALWINDER Non-Admin Reason: IV Running Sucralfate (Sucralfate 1 Gm Tablet) 1 gm PO BID [facility] Last Admin: 10/17/22 08:10 Dose: 1 gm Documented By: BALWINDER Tamsulosin HCl (Tamsulosin Hcl 0.4 Mg Capsule) 0.4 mg PO DAILY [facility] Last Admin: 10/17/22 08:09 Dose: 0.4 mg Documented By: BALWINDER Vitamin D (Cholecalciferol (Vitamin D3) 25 Mcg Tablet) 25 mcg PO DAILY [facility] Last Admin: 10/17/22 08:10 Dose: 25 mcg Documented By: BALWINDER Labs 10/17/22 04:31 10/17/22 04:31 Labs: Laboratory Results - last 24 hr 10/16/22 10/16/22 10/16/22 14:22 14:22 14:22 MCV 92.0 MCH 31.1 MCHC 33.8 RDW 13.0 Plt Count 251 MPV 9.7 Immature Gran % (Auto) 0.4 Neut % (Auto) 73.7 H Lymph % (Auto) 16.0 L [place] % (Auto) 7.6 Eos % (Auto) 1.8 Baso % (Auto) 0.5 Lymph # (Auto) 1.5 [place] # (Auto) 0.7 Eos # (Auto) 0.2 Baso # (Auto) 0.1 Abs Immat Gran (auto) 0.04 H Absolute Neuts (auto) 7.1 Absolute Nucleated RBC 0.000 Nucleated RBC % (auto) 0.0 Anion Gap 15 Estim Creat Clear Calc 114.3 Estimated GFR > 60 POC Glucose Random Glucose 105 Estimat Average Glucose 120 Hemoglobin A1c % 5.8 Calcium 10.0 Magnesium Total Bilirubin 0.5 AST 45 H ALT 21 Alkaline Phosphatase 79 Total Creatine Kinase 1963 H Total Protein 7.0 Albumin 4.2 TSH COVID-19 (CANDICE) COVID-19 Clin Com 10/16/22 10/16/22 10/16/22 14:22 14:22 18:25 MCV MCH MCHC RDW Plt Count MPV Immature Gran % (Auto) Neut % (Auto) Lymph % (Auto) [place] % (Auto) Eos % (Auto) Baso % (Auto) Lymph # (Auto) [place] # (Auto) Eos # (Auto) Baso # (Auto) Abs Immat Gran (auto) Absolute Neuts (auto) Absolute Nucleated RBC Nucleated RBC % (auto) Anion Gap Estim Creat Clear Calc Estimated GFR POC Glucose Random Glucose Estimat Average Glucose Hemoglobin A1c % Calcium Magnesium Total Bilirubin AST ALT Alkaline Phosphatase Total Creatine Kinase 1695 H Total Protein Albumin TSH 1.75 COVID-19 (CANDICE) Negative COVID-19 Clin Com See Note 10/16/22 10/16/22 10/17/22 18:32 20:39 04:31 MCV 95.3 MCH 31.8 MCHC 33.3 RDW 13.1 Plt Count 201 MPV 9.9 Immature Gran % (Auto) 0.3 Neut % (Auto) 61.5 Lymph % (Auto) 24.8 [place] % (Auto) 9.2 Eos % (Auto) 3.5 Baso % (Auto) 0.7 Lymph # (Auto) 1.7 [place] # (Auto) 0.6 Eos # (Auto) 0.2 Baso # (Auto) 0.1 Abs Immat Gran (auto) 0.02 Absolute Neuts (auto) 4.2 Absolute Nucleated RBC 0.000 Nucleated RBC % (auto) 0.0 Anion Gap Estim Creat Clear Calc Estimated GFR POC Glucose 171 H Random Glucose Estimat Average Glucose Hemoglobin A1c % Calcium Magnesium 1.8 Total Bilirubin AST ALT Alkaline Phosphatase Total Creatine Kinase Total Protein Albumin TSH COVID-19 (CANDICE) COVID-19 Clin Com 10/17/22 10/17/22 04:31 07:32 MCV MCH MCHC RDW Plt Count MPV Immature Gran % (Auto) Neut % (Auto) Lymph % (Auto) [place] % (Auto) Eos % (Auto) Baso % (Auto) Lymph # (Auto) [place] # (Auto) Eos # (Auto) Baso # (Auto) Abs Immat Gran (auto) Absolute Neuts (auto) Absolute Nucleated RBC Nucleated RBC % (auto) Anion Gap 14 Estim Creat Clear Calc 134.2 Estimated GFR > 60 POC Glucose 89 Random Glucose 93 Estimat Average Glucose Hemoglobin A1c % Calcium 9.0 D Magnesium Total Bilirubin AST ALT Alkaline Phosphatase Total Creatine Kinase Total Protein Albumin TSH COVID-19 (CANDICE) COVID-19 Clin Com Assessment and Plan (1) Generalized weakness: Status: Acute (2) Rhabdomyolysis: Status: Acute Plan This is a 67-year-old male with pertinent history of ile-dlohyxj-pondgapur diabetes mellitus, essential hypertension, mood disorder, peripheral neuropathy, gastroesophageal reflux disease, irritable bowel syndrome presents to the emergency department evaluation after a fall. #.? Rhabdomyolysis, traumatic, mild CPk trending but historically CPKs always high. continue IV, stop statin #.? Generalized weakness in the setting of above and physical deconditioning.? Physical therapy recommends short-term rehab.? Consult social worker school for assistance #.? Dqa-hbtyqlh-llxymrlit type 2 diabetes mellitus.? Continue home anti hyperglycemics.? SSI, #.? Essential hypertension.? Continue home antihypertensives #.? Mood disorder.? Continue home mood stabilizers #.? Gastroesophageal reflux disease: On PPI Need for inpatient: fall, weakness, needs placement Time Spent With Patient Time: Total time managing care of this patient today ____ minutes. Quality Stroke Does the patient have a stroke diagnosis?: No VTE Prior VTE?: No VTE Risk Level:: Medical - moderate - high VTE Device Contraindication: Treatment Not Indicated VTE Drug Contraindication: N/A - Med Ordered
[2022-10-17] MEDS: ALPRAZolam 0.5 MG TABLET 1 MG PO ×2 (08:18→21:33)
[2022-10-17 09:01] LABS: Appearance Urine Clear; Color Urine Dark Yellow; Glucose Urine UA Negative (Negative); Leukocyte Esterase Urine Negative (Negative); Nitrite Urine Negative (Negative); PH 5.5 (5.0-9.0); Specific Gravity - Urine 1.025 (1.005-1.025); Urine Blood Negative (Negative); Urine Ketones Trace mg/dL (Negative); Urine Protein Trace mg/dL (Neg-Trace)
[2022-10-17 09:44] LABS: Anion Gap 12 (12-20); Blood Urea Nitrogen 10 mg/dL (9-16); Calcium 9.1 mg/dL (8.4-10.2); Carbon Dioxide 22 mmol/L (22-29); Chloride 109 mmol/L (96-108); Creatinine Clr Calc Pharmacy 130.2; Estimated Glomerular Filt Rate > 60; Glucose Random 154 mg/dL (60-115); Potassium 3.4 mmol/L (3.3-5.1); Sodium 140 mmol/L (135-145)
[2022-10-17 11:15] LABS: Glucose, Whole Blood 127 mg/dL (60-115)
[2022-10-17 15:19] VITALS: BP 130/64; PULSE 77; RESP 18; TEMP 36; O2SAT 96
[2022-10-17] MEDS: Acetaminophen 325 MG TABLET 650 MG PO ×2 (15:40→21:31)
--- NOTE | 2022-10-17 15:56 | MHC.CM.PN ---
IMM DELIVERED. P.T. HAS REC STR, REFERRALS SENT AND AWAITING A BED OFFER PENDING [employer] AUTH, PT FIRST CHOICE IS [facility]. CM WILL CONTINUE TO FOLLOW
[2022-10-17 16:18] LABS: Glucose, Whole Blood 94 mg/dL (60-115)
[2022-10-17 19:34] VITALS: BP 141/80; PULSE 80; RESP 17; TEMP 36.1; O2SAT 97
[2022-10-17 20:04] LABS: Glucose, Whole Blood 102 mg/dL (60-115)
[2022-10-17] MEDS: Dicyclomine HCl 10 MG CAPSULE 20 MG PO (21:31)
[2022-10-17] MEDS: Gabapentin 300 MG CAPSULE PO (21:31)
[2022-10-17] MEDS: Enoxaparin Sodium 40 MG/0.4 ML SYRINGE SUBCUT (21:32)
[2022-10-17] MEDS: Melatonin 3 MG TABLET 6 MG PO (21:33)
[2022-10-17 23:43] VITALS: BP 108/52; PULSE 78; RESP 18; TEMP 36.2; O2SAT 94
[2022-10-18] MEDS: Omeprazole 40 MG CAPSULE.DR PO (06:09)
[2022-10-18 07:15] LABS: Glucose, Whole Blood 89 mg/dL (60-115)
[2022-10-18 07:41] VITALS: BP 142/69; PULSE 73; RESP 18; TEMP 37.2; O2SAT 96
--- NOTE | 2022-10-18 08:09 | HO.PM.IMPN ---
Subjective Subjective Date of Service: 10/18/22 Interval History: f/u on fall, appear mechanical, no new issues, awaiting rehb Physical Exam Vital Signs: Vital Signs: Last Vital Signs Temp 98.9 F 10/18/22 07:41 Pulse 73 10/18/22 07:41 Resp 18 10/18/22 07:41 BP 142/69 H 10/18/22 07:41 Pulse Ox 96 10/18/22 07:41 O2 Del Method Room Air 10/18/22 07:41 BMI result Body Mass Index 42.5 Const: Other: General: AO X 3, no acute distress Resp: CTA bilateral CVS: S1,S2,RRR GI: +BS, NT, no distention Skin: No rash Neuro: motor grossly intact Psych: appropriate affect Objective Data Active Medications Acetaminophen (Acetaminophen 325 Mg Tablet) 650 mg PO Q6H PRN PRN Reason: Pain, Mild (Pain Scale 1-3) Last Admin: 10/17/22 21:31 Dose: 650 mg Documented By: GRECIA Alprazolam (Alprazolam 0.5 Mg Tablet) 1 mg PO BID PRN PRN Reason: anxiety Last Admin: 10/17/22 21:33 Dose: 1 mg Documented By: GRECIA Clotrimazole (Clotrimazole 1 % Cream 15 Gm Tube) 1 appl TOPICAL BID PRN; Protocol PRN Reason: jock itch / toe fungus Dextrose (Dextrose 50 % 25 Gm/50 Ml Syringe) 25 gm IVPUSH Q15M PRN; Protocol PRN Reason: per Hypoglycemia Standing Ord. Dicyclomine HCl (Dicyclomine Hcl 10 Mg Capsule) 20 mg PO TID PRN PRN Reason: for abdominal pain Last Admin: 10/17/22 21:31 Dose: 20 mg Documented By: GRECIA Enoxaparin Sodium (Enoxaparin Sodium 40 Mg/0.4 Ml Syringe) 40 mg SUBCUT Q24H RAJ Last Admin: 10/17/22 21:32 Dose: 40 mg Documented By: GRECIA Escitalopram Oxalate (Escitalopram Oxalate 20 Mg Tablet) 20 mg PO DAILY RAJ Last Admin: 10/17/22 08:10 Dose: 20 mg Documented By: BALWINDER Fluticasone Propionate (Fluticasone Propionate Nasal 16 Gm [place]) 1 spray NOSTRIL-B DAILY PRN PRN Reason: Allergy Symptoms Gabapentin (Gabapentin 300 Mg Capsule) 300 mg PO BEDTIME [facility] Last Admin: 10/17/22 21:31 Dose: 300 mg Documented By: GRECIA Glucose (Glucose Gel 15 Gm Gel..Gram.) 15 gm PO Q15M PRN; Protocol PRN Reason: per Hypoglycemia Standing Ord. Sodium Chloride (Ns) 1,000 mls @ 125 mls/hr IVCONT .Q8H [facility] Last Infusion: 10/18/22 06:09 Dose: 125 mls/hr Documented By: GRECIA Insulin Human Lispro (Insulin Lispro 100 Unit/Ml 3 Ml Vial) 0 unit SUBCUT QIDACHS [facility]; Protocol Last Admin: 10/18/22 07:54 Dose: Not Given Documented By: AQUILINO Non-Admin Reason: No Insulin Coverage Lisinopril (Lisinopril 10 Mg Tablet) 30 mg PO DAILY [facility]; Protocol Last Admin: 10/17/22 08:09 Dose: 30 mg Documented By: BALWINDER Magnesium Oxide (Magnesium Oxide 400 Mg Tablet) 400 mg PO DAILY [facility] Last Admin: 10/17/22 08:10 Dose: 400 mg Documented By: BALWINDER Melatonin (Melatonin 3 Mg Tablet) 3 mg PO BEDTIME PRN PRN Reason: sleep Melatonin (Melatonin 3 Mg Tablet) 6 mg PO BEDTIME PRN PRN Reason: Insomnia Last Admin: 10/17/22 21:33 Dose: 6 mg Documented By: GRECIA Non-Formulary Medication (Plecanatide [Trulance]) 3 mg PO DAILY [facility] Omeprazole (Omeprazole 40 Mg Maya.) 40 mg PO DAILY@0630 [facility] Last Admin: 10/18/22 06:09 Dose: 40 mg Documented By: GRECIA Ondansetron HCl (Ondansetron Odt 8 Mg Tab.Rapdis) 8 mg TRANSLINGU Q12H PRN PRN Reason: nausea and vomiting Ondansetron HCl (Ondansetron Hcl 4 Mg/2 Ml Vial) 4 mg IVPUSH Q8H PRN PRN Reason: Nausea and Vomiting Pharmacy Consult (Consult Rx Perform Med Rec) 1 each MISCELLANE ONCE PRN PRN Reason: Consult order Pioglitazone HCl (Pioglitazone Hcl 30 Mg Tablet) 30 mg PO DAILY [facility] Last Admin: 10/17/22 08:09 Dose: 30 mg Documented By: BALWINDER Sodium Chloride (0.9 % Sodium Chloride Flush 3 Ml Syringe) 3 ml IVFLUSH QSHIFT [facility] Last Admin: 10/18/22 07:54 Dose: Not Given Documented By: AQUILINO Non-Admin Reason: IV Running Sucralfate (Sucralfate 1 Gm Tablet) 1 gm PO BID [facility] Last Admin: 10/17/22 21:31 Dose: 1 gm Documented By: GRECIA Tamsulosin HCl (Tamsulosin Hcl 0.4 Mg Capsule) 0.4 mg PO DAILY [facility] Last Admin: 10/17/22 08:09 Dose: 0.4 mg Documented By: BALWINDER Vitamin D (Cholecalciferol (Vitamin D3) 25 Mcg Tablet) 25 mcg PO DAILY [facility] Last Admin: 10/17/22 08:10 Dose: 25 mcg Documented By: BALWINDER Labs 10/17/22 04:31 10/17/22 09:10 Labs: Laboratory Results - last 24 hr 10/17/22 10/17/22 10/17/22 08:55 09:10 11:11 Anion Gap 12 Estim Creat Clear Calc 130.2 Estimated GFR > 60 POC Glucose 127 H Random Glucose 154 H Calcium 9.1 Total Creatine Kinase 1227 H Urine Color Dark Yellow Urine Appearance Clear Urine pH 5.5 Ur Specific [place] 1.025 Urine Protein Trace Urine Glucose (UA) Negative Urine Ketones Trace Urine Blood Negative Urine Nitrite Negative Ur Leukocyte Esterase Negative 10/17/22 10/17/22 10/18/22 16:09 19:56 07:08 Anion Gap Estim Creat Clear Calc Estimated GFR POC Glucose 94 102 89 Random Glucose Calcium Total Creatine Kinase Urine Color Urine Appearance Urine pH Ur Specific [place] Urine Protein Urine Glucose (UA) Urine Ketones Urine Blood Urine Nitrite Ur Leukocyte Esterase Assessment and Plan (1) Generalized weakness: Status: Acute (2) Rhabdomyolysis: Status: Acute Plan This is a 67-year-old male with pertinent history of hvl-vlcppgu-pszhhujnj diabetes mellitus, essential hypertension, mood disorder, peripheral neuropathy, gastroesophageal reflux disease, irritable bowel syndrome presents to the emergency department evaluation after a fall. #.? Rhabdomyolysis, traumatic, mild CPk trending but historically CPKs always high. continue IV, stop statin #.? Generalized weakness in the setting of above and physical deconditioning.? Physical therapy recommends short-term rehab.? e #.? Dnw-dxicotl-oxloyxrcg type 2 diabetes mellitus.? Continue home anti hyperglycemics.? SSI, #.? Essential hypertension.? Continue home antihypertensives #.? Mood disorder.? Continue home mood stabilizers #.? Gastroesophageal reflux disease: On PPI Need for inpatient: fall, weakness, needs placement Time Spent With Patient Time: Total time managing care of this patient today ____ minutes. Quality Stroke Does the patient have a stroke diagnosis?: No VTE Prior VTE?: No VTE Risk Level:: Medical - moderate - high VTE Device Contraindication: Treatment Not Indicated VTE Drug Contraindication: N/A - Med Ordered
[2022-10-18] MEDS: Tamsulosin HCL 0.4 MG CAPSULE PO (08:39)
[2022-10-18] MEDS: lisinopriL 10 MG TABLET 30 MG PO (08:39)
[2022-10-18] MEDS: Pioglitazone HCL 30 MG TABLET PO (08:39)
[2022-10-18] MEDS: Sucralfate 1 GM TABLET PO ×2 (08:39→20:29)
[2022-10-18] MEDS: ALPRAZolam 0.5 MG TABLET 1 MG PO ×2 (08:39→20:31)
[2022-10-18] MEDS: Magnesium Oxide 400 MG TABLET PO (08:39)
[2022-10-18] MEDS: Escitalopram Oxalate 20 MG TABLET PO (08:39)
[2022-10-18] MEDS: Cholecalciferol (Vitamin D3) 25 MCG TABLET PO (08:39)
[2022-10-18] MEDS: 0.9 % Sodium Chloride 1,000 ML 125 ML IVCONT (11:22)
[2022-10-18 11:58] LABS: Glucose, Whole Blood 99 mg/dL (60-115)
[2022-10-18 16:00] VITALS: BP 137/71; PULSE 75; RESP 18; TEMP 36.1; O2SAT 97
[2022-10-18 16:37] LABS: Glucose, Whole Blood 142 mg/dL (60-115)
[2022-10-18 19:50] VITALS: BP 150/67; PULSE 76; RESP 16; TEMP 36.2; O2SAT 96
[2022-10-18] MEDS: Gabapentin 300 MG CAPSULE PO (20:29)
[2022-10-18] MEDS: Acetaminophen 325 MG TABLET 650 MG PO (20:30)
[2022-10-18] MEDS: Dicyclomine HCl 10 MG CAPSULE 20 MG PO (20:30)
[2022-10-18] MEDS: Melatonin 3 MG TABLET 6 MG PO (20:31)
[2022-10-18] MEDS: Enoxaparin Sodium 40 MG/0.4 ML SYRINGE SUBCUT (20:31)
[2022-10-18 21:02] LABS: Glucose, Whole Blood 127 mg/dL (60-115)
[2022-10-19 01:55] VITALS: BP 132/75; PULSE 64; RESP 18; TEMP 36.1; O2SAT 95
[2022-10-19] MEDS: Omeprazole 40 MG CAPSULE.DR PO (05:53)
[2022-10-19 07:57] LABS: Glucose, Whole Blood 91 mg/dL (60-115)
[2022-10-19 08:00] VITALS: BP 139/73; PULSE 72; RESP 18; TEMP 36.5; O2SAT 96
[2022-10-19] MEDS: ALPRAZolam 0.5 MG TABLET 1 MG PO ×2 (08:40→20:36)
[2022-10-19] MEDS: Sucralfate 1 GM TABLET PO ×2 (08:40→19:30)
[2022-10-19] MEDS: Tamsulosin HCL 0.4 MG CAPSULE PO (08:40)
[2022-10-19] MEDS: Magnesium Oxide 400 MG TABLET PO (08:40)
[2022-10-19] MEDS: lisinopriL 10 MG TABLET 30 MG PO (08:40)
[2022-10-19] MEDS: Pioglitazone HCL 30 MG TABLET PO (08:40)
[2022-10-19] MEDS: Escitalopram Oxalate 20 MG TABLET PO (08:40)
[2022-10-19] MEDS: Cholecalciferol (Vitamin D3) 25 MCG TABLET PO (08:40)
[2022-10-19] MEDS: 0.9 % Sodium Chloride Flush 3 ML SYRINGE IVFLUSH ×2 (08:41→15:57)
--- NOTE | 2022-10-19 09:06 | P.PNIM_ITS ---
Subjective Subjective Date of Service: 10/19/22 Interval History: f/u on fall, appear mechanical, no new issues, awaiting rehb Physical Exam Vital Signs: Vital Signs: Last Vital Signs Temp 97.7 F 10/19/22 08:00 Pulse 72 10/19/22 08:00 Resp 18 10/19/22 08:00 BP 139/73 10/19/22 08:00 Pulse Ox 96 10/19/22 08:00 O2 Del Method Room Air 10/19/22 08:00 BMI result Body Mass Index 42.5 Const: Other: General: AO X 3, no acute distress Resp: CTA bilateral CVS: S1,S2,RRR GI: +BS, NT, no distention Skin: No rash Neuro: motor grossly intact Psych: appropriate affect Objective Data Active Medications Acetaminophen (Acetaminophen 325 Mg Tablet) 650 mg PO Q6H PRN PRN Reason: Pain, Mild (Pain Scale 1-3) Last Admin: 10/18/22 20:30 Dose: 650 mg Documented By: GRECIA Alprazolam (Alprazolam 0.5 Mg Tablet) 1 mg PO BID PRN PRN Reason: anxiety Last Admin: 10/19/22 08:40 Dose: 1 mg Documented By: AQUILINO Clotrimazole (Clotrimazole 1 % Cream 15 Gm Tube) 1 appl TOPICAL BID PRN; Protocol PRN Reason: jock itch / toe fungus Dextrose (Dextrose 50 % 25 Gm/50 Ml Syringe) 25 gm IVPUSH Q15M PRN; Protocol PRN Reason: per Hypoglycemia Standing Ord. Dicyclomine HCl (Dicyclomine Hcl 10 Mg Capsule) 20 mg PO TID PRN PRN Reason: for abdominal pain Last Admin: 10/18/22 20:30 Dose: 20 mg Documented By: GRECIA Enoxaparin Sodium (Enoxaparin Sodium 40 Mg/0.4 Ml Syringe) 40 mg SUBCUT Q24H RAJ Last Admin: 10/18/22 20:31 Dose: 40 mg Documented By: GRECIA Escitalopram Oxalate (Escitalopram Oxalate 20 Mg Tablet) 20 mg PO DAILY RAJ Last Admin: 10/19/22 08:40 Dose: 20 mg Documented By: AQUILINO Fluticasone Propionate (Fluticasone Propionate Nasal 16 Gm [place]) 1 spray NOSTRIL-B DAILY PRN PRN Reason: Allergy Symptoms Gabapentin (Gabapentin 300 Mg Capsule) 300 mg PO BEDTIME [facility] Last Admin: 10/18/22 20:29 Dose: 300 mg Documented By: GRECIA Glucose (Glucose Gel 15 Gm Gel..Gram.) 15 gm PO Q15M PRN; Protocol PRN Reason: per Hypoglycemia Standing Ord. Insulin Human Lispro (Insulin Lispro 100 Unit/Ml 3 Ml Vial) 0 unit SUBCUT QIDACHS [facility]; Protocol Last Admin: 10/19/22 08:34 Dose: Not Given Documented By: AQUILINO Non-Admin Reason: No Insulin Coverage Lisinopril (Lisinopril 10 Mg Tablet) 30 mg PO DAILY [facility]; Protocol Last Admin: 10/19/22 08:40 Dose: 30 mg Documented By: AQUILINO Magnesium Oxide (Magnesium Oxide 400 Mg Tablet) 400 mg PO DAILY [facility] Last Admin: 10/19/22 08:40 Dose: 400 mg Documented By: AQUILINO Melatonin (Melatonin 3 Mg Tablet) 3 mg PO BEDTIME PRN PRN Reason: sleep Melatonin (Melatonin 3 Mg Tablet) 6 mg PO BEDTIME PRN PRN Reason: Insomnia Last Admin: 10/18/22 20:31 Dose: 6 mg Documented By: GRECIA Non-Formulary Medication (Plecanatide [Trulance]) 3 mg PO DAILY [facility] Omeprazole (Omeprazole 40 Mg Capsule.Dr) 40 mg PO DAILY@0630 [facility] Last Admin: 10/19/22 05:53 Dose: 40 mg Documented By: YANET Ondansetron HCl (Ondansetron Odt 8 Mg Tab.Rapdis) 8 mg TRANSLINGU Q12H PRN PRN Reason: nausea and vomiting Ondansetron HCl (Ondansetron Hcl 4 Mg/2 Ml Vial) 4 mg IVPUSH Q8H PRN PRN Reason: Nausea and Vomiting Pharmacy Consult (Consult Rx Perform Med Rec) 1 each MISCELLANE ONCE PRN PRN Reason: Consult order Pioglitazone HCl (Pioglitazone Hcl 30 Mg Tablet) 30 mg PO DAILY [facility] Last Admin: 10/19/22 08:40 Dose: 30 mg Documented By: AQUILINO Sodium Chloride (0.9 % Sodium Chloride Flush 3 Ml Syringe) 3 ml IVFLUSH QSHIFT [facility] Last Admin: 10/19/22 08:41 Dose: 3 ml Documented By: AQUILINO Sucralfate (Sucralfate 1 Gm Tablet) 1 gm PO BID [facility] Last Admin: 10/19/22 08:40 Dose: 1 gm Documented By: AQUILINO Tamsulosin HCl (Tamsulosin Hcl 0.4 Mg Capsule) 0.4 mg PO DAILY [facility] Last Admin: 10/19/22 08:40 Dose: 0.4 mg Documented By: AQUILINO Vitamin D (Cholecalciferol (Vitamin D3) 25 Mcg Tablet) 25 mcg PO DAILY [facility] Last Admin: 10/19/22 08:40 Dose: 25 mcg Documented By: AQUILINO Labs 10/17/22 04:31 10/17/22 09:10 Labs: Laboratory Results - last 24 hr 10/18/22 10/18/22 10/18/22 11:40 16:25 20:58 POC Glucose 99 142 H 127 H 10/19/22 07:34 POC Glucose 91 Assessment and Plan (1) Generalized weakness: Status: Acute (2) Rhabdomyolysis: Status: Acute Plan This is a 67-year-old male with pertinent history of shw-hjbgmzf-tpjkewtuk diabetes mellitus, essential hypertension, mood disorder, peripheral neuropathy, gastroesophageal reflux disease, irritable bowel syndrome presents to the emergency department evaluation after a fall. #.? Rhabdomyolysis, traumatic, mild CPk trending but historically CPKs always high,stopped IV, DC'd statin #.? Generalized weakness in the setting of above and physical deconditioning.? Physical therapy recommends short-term rehab.? #.? Yao-wcimgce-bxowbhkyw type 2 diabetes mellitus.? Continue home anti hyperglycemics.? SSI, #.? Essential hypertension.? Continue home antihypertensives #.? Mood disorder.? Continue home mood stabilizers #.? Gastroesophageal reflux disease: On PPI Need for inpatient: fall, weakness, needs placement out of bed ambuate with staff Time Spent With Patient Time: Total time managing care of this patient today ____ minutes. Quality Stroke Does the patient have a stroke diagnosis?: No VTE Prior VTE?: No VTE Risk Level:: Medical - moderate - high VTE Device Contraindication: Treatment Not Indicated VTE Drug Contraindication: N/A - Med Ordered
[2022-10-19 11:49] LABS: Glucose, Whole Blood 82 mg/dL (60-115)
[2022-10-19 16:00] VITALS: BP 158/76; PULSE 60; RESP 18; TEMP 36.3; O2SAT 98
[2022-10-19 16:41] LABS: Glucose, Whole Blood 92 mg/dL (60-115)
[2022-10-19] MEDS: Acetaminophen 325 MG TABLET 650 MG PO (18:33)
[2022-10-19] MEDS: Gabapentin 300 MG CAPSULE PO (19:30)
[2022-10-19] MEDS: Enoxaparin Sodium 40 MG/0.4 ML SYRINGE SUBCUT (19:31)
[2022-10-19] MEDS: Dicyclomine HCl 10 MG CAPSULE 20 MG PO (19:42)
[2022-10-19 19:43] VITALS: BP 140/80; PULSE 60; RESP 20; TEMP 36.2; O2SAT 100
[2022-10-19 20:22] LABS: Glucose, Whole Blood 100 mg/dL (60-115)
[2022-10-19] MEDS: Melatonin 3 MG TABLET 6 MG PO (20:39)
[2022-10-20] MEDS: 0.9 % Sodium Chloride Flush 3 ML SYRINGE IVFLUSH ×2 (00:37→09:23)
[2022-10-20 04:00] VITALS: BP 135/73; PULSE 65; RESP 18; TEMP 36.2; O2SAT 97
[2022-10-20] MEDS: Omeprazole 40 MG CAPSULE.DR PO (06:33)
[2022-10-20] MEDS: Acetaminophen 325 MG TABLET 650 MG PO (06:49)
[2022-10-20 07:14] VITALS: BP 141/67; PULSE 60; RESP 18; TEMP 36; O2SAT 96
[2022-10-20 07:48] LABS: Glucose, Whole Blood 92 mg/dL (60-115)
--- NOTE | 2022-10-20 07:59 | P.PNIM_ITS ---
Subjective Subjective Date of Service: 10/20/22 Interval History: f/u on fall, appear mechanical, no new issues, awaiting rehb Physical Exam Vital Signs: Vital Signs: Last Vital Signs Temp 96.8 F 10/20/22 07:14 Pulse 60 10/20/22 07:14 Resp 18 10/20/22 07:14 BP 141/67 H 10/20/22 07:14 Pulse Ox 96 10/20/22 07:14 O2 Del Method Room Air 10/20/22 07:14 BMI result Body Mass Index 42.5 Const: Other: General: AO X 3, no acute distress Resp: CTA bilateral CVS: S1,S2,RRR GI: +BS, NT, no distention Skin: No rash Neuro: motor grossly intact Psych: appropriate affect Objective Data Active Medications Acetaminophen (Acetaminophen 325 Mg Tablet) 650 mg PO Q6H PRN PRN Reason: Pain, Mild (Pain Scale 1-3) Last Admin: 10/20/22 06:49 Dose: 650 mg Documented By: RACHEL Alprazolam (Alprazolam 0.5 Mg Tablet) 1 mg PO BID PRN PRN Reason: anxiety Last Admin: 10/19/22 20:36 Dose: 1 mg Documented By: DONELL Clotrimazole (Clotrimazole 1 % Cream 15 Gm Tube) 1 appl TOPICAL BID PRN; Protocol PRN Reason: jock itch / toe fungus Dextrose (Dextrose 50 % 25 Gm/50 Ml Syringe) 25 gm IVPUSH Q15M PRN; Protocol PRN Reason: per Hypoglycemia Standing Ord. Dicyclomine HCl (Dicyclomine Hcl 10 Mg Capsule) 20 mg PO TID PRN PRN Reason: for abdominal pain Last Admin: 10/19/22 19:42 Dose: 20 mg Documented By: DONELL Enoxaparin Sodium (Enoxaparin Sodium 40 Mg/0.4 Ml Syringe) 40 mg SUBCUT Q24H RAJ Last Admin: 10/19/22 19:31 Dose: 40 mg Documented By: DONELL Escitalopram Oxalate (Escitalopram Oxalate 20 Mg Tablet) 20 mg PO DAILY RAJ Last Admin: 10/19/22 08:40 Dose: 20 mg Documented By: AQUILINO Fluticasone Propionate (Fluticasone Propionate Nasal 16 Gm [place]) 1 spray NOSTRIL-B DAILY PRN PRN Reason: Allergy Symptoms Gabapentin (Gabapentin 300 Mg Capsule) 300 mg PO BEDTIME [facility] Last Admin: 10/19/22 19:30 Dose: 300 mg Documented By: DONELL Glucose (Glucose Gel 15 Gm Gel..Gram.) 15 gm PO Q15M PRN; Protocol PRN Reason: per Hypoglycemia Standing Ord. Insulin Human Lispro (Insulin Lispro 100 Unit/Ml 3 Ml Vial) 0 unit SUBCUT QIDACHS [facility]; Protocol Last Admin: 10/20/22 07:43 Dose: Not Given Documented By: AQUILINO Non-Admin Reason: No Insulin Coverage Lisinopril (Lisinopril 10 Mg Tablet) 30 mg PO DAILY [facility]; Protocol Last Admin: 10/19/22 08:40 Dose: 30 mg Documented By: AQUILINO Magnesium Oxide (Magnesium Oxide 400 Mg Tablet) 400 mg PO DAILY [facility] Last Admin: 10/19/22 08:40 Dose: 400 mg Documented By: AQUILINO Melatonin (Melatonin 3 Mg Tablet) 3 mg PO BEDTIME PRN PRN Reason: sleep Melatonin (Melatonin 3 Mg Tablet) 6 mg PO BEDTIME PRN PRN Reason: Insomnia Last Admin: 10/19/22 20:39 Dose: 6 mg Documented By: DONELL Non-Formulary Medication (Plecanatide [Trulance]) 3 mg PO DAILY [facility] Omeprazole (Omeprazole 40 Mg Capsule.Dr) 40 mg PO DAILY@0630 [facility] Last Admin: 10/20/22 06:33 Dose: 40 mg Documented By: RACHEL Ondansetron HCl (Ondansetron Odt 8 Mg Tab.Rapdis) 8 mg TRANSLINGU Q12H PRN PRN Reason: nausea and vomiting Ondansetron HCl (Ondansetron Hcl 4 Mg/2 Ml Vial) 4 mg IVPUSH Q8H PRN PRN Reason: Nausea and Vomiting Pharmacy Consult (Consult Rx Perform Med Rec) 1 each MISCELLANE ONCE PRN PRN Reason: Consult order Pioglitazone HCl (Pioglitazone Hcl 30 Mg Tablet) 30 mg PO DAILY [facility] Last Admin: 10/19/22 08:40 Dose: 30 mg Documented By: AQUILINO Polyethylene Glycol (Polyethylene Glycol 3350 17 Gm Powd.Pack) 17 gm PO DAILY PRN PRN Reason: Constipation Sodium Chloride (0.9 % Sodium Chloride Flush 3 Ml Syringe) 3 ml IVFLUSH QSHIFT [facility] Last Admin: 10/20/22 00:37 Dose: 3 ml Documented By: RACHEL Sucralfate (Sucralfate 1 Gm Tablet) 1 gm PO BID [facility] Last Admin: 10/19/22 19:30 Dose: 1 gm Documented By: DONELL Tamsulosin HCl (Tamsulosin Hcl 0.4 Mg Capsule) 0.4 mg PO DAILY [facility] Last Admin: 10/19/22 08:40 Dose: 0.4 mg Documented By: AQUILINO Vitamin D (Cholecalciferol (Vitamin D3) 25 Mcg Tablet) 25 mcg PO DAILY [facility] Last Admin: 10/19/22 08:40 Dose: 25 mcg Documented By: AQUILINO Labs 10/17/22 04:31 10/17/22 09:10 Labs: Laboratory Results - last 24 hr 10/19/22 10/19/22 10/19/22 11:43 16:36 20:07 POC Glucose 82 92 100 10/20/22 07:20 POC Glucose 92 Assessment and Plan (1) Generalized weakness: Status: Acute (2) Rhabdomyolysis: Status: Acute Plan This is a 67-year-old male with pertinent history of fzx-dwoodim-iowgurbsz diabetes mellitus, essential hypertension, mood disorder, peripheral neuropathy, gastroesophageal reflux disease, irritable bowel syndrome presents to the emergency department evaluation after a fall. #.? Rhabdomyolysis, traumatic, mild CPk trending but historically CPKs always high,he has been hydrated with IVF and CPK has trending down, Statin should permanently stopped given chronically elevated CPKs #.? Generalized weakness in the setting of above and physical deconditioning.? Physical therapy recommends short-term rehab; he is agreable #.? Vde-qdfieiq-cmfcdqliw type 2 diabetes mellitus.? Continue home anti hyperglycemics.? SSI, #.? Essential hypertension.? Continue home antihypertensives #.? Mood disorder.? Continue home mood stabilizers #.? Gastroesophageal reflux disease: On PPI Need for inpatient: fall, weakness, needs placement out of bed ambuate with staff Time Spent With Patient Time: Total time managing care of this patient today ____ minutes. Quality Stroke Does the patient have a stroke diagnosis?: No VTE Prior VTE?: No VTE Risk Level:: Medical - moderate - high VTE Device Contraindication: Treatment Not Indicated VTE Drug Contraindication: N/A - Med Ordered
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
[2022-10-20] MEDS: Pioglitazone HCL 30 MG TABLET PO (09:18)
[2022-10-20] MEDS: Sucralfate 1 GM TABLET PO (09:18)
[2022-10-20] MEDS: lisinopriL 10 MG TABLET 30 MG PO (09:18)
[2022-10-20] MEDS: Escitalopram Oxalate 20 MG TABLET PO (09:18)
[2022-10-20] MEDS: polyethylene glycoL 3350 17 GM POWD.PACK PO (09:18)
[2022-10-20] MEDS: Tamsulosin HCL 0.4 MG CAPSULE PO (09:19)
[2022-10-20] MEDS: Magnesium Oxide 400 MG TABLET PO (09:19)
[2022-10-20] MEDS: ALPRAZolam 0.5 MG TABLET 1 MG PO (09:19)
[2022-10-20] MEDS: Cholecalciferol (Vitamin D3) 25 MCG TABLET PO (09:19)
[2022-10-20] MEDS: Dicyclomine HCl 10 MG CAPSULE 20 MG PO (09:19)
[2022-10-20 11:38] VITALS: BP 141/67; PULSE 60; O2SAT 96
[2022-10-20 11:39] LABS: Glucose, Whole Blood 97 mg/dL (60-115)
--- NOTE | 2022-10-20 14:04 | MHC.CM.PN ---
DP: PT HAS BEEN MEDICALLY CLEARED FOR DC TO STR AT [facility]. [facility] AUTH WAS OBTAINED BY CENTER. RN AWARE. MD AWARE. PT NOTIFIED HIS FAMILY OF TRANSFER. BLS TRANSPORT BOOKED FOR 3 PM VIA [facility]. IMM DELIVERED
== END 2022-10-20 15:48 | disposition skilled nursing facility (03) | DRG 566 ==
LOC: HO.ED 20:26 → HO.EDOVER 20:29 → HO.S3 10-17 04:39
PROVIDERS: Admitting Provider Student in an Organized Health Care Education/Training Program; Emergency Provider Emergency Medicine; PCP Internal Medicine; Visit Provider Internal Medicine
DX: T79.6XXA Traumatic ischemia of muscle, initial encounter (principal); W19.XXXA Unspecified fall, initial encounter; E78.00 Pure hypercholesterolemia, unspecified; F17.210 Nicotine dependence, cigarettes, uncomplicated; E11.42 Type 2 diabetes mellitus with diabetic polyneuropathy; K21.9 Gastro-esophageal reflux disease without esophagitis; F41.9 Anxiety disorder, unspecified; F32.A Depression, unspecified; I10 Essential (primary) hypertension; Z71.6 Tobacco abuse counseling; Z20.822 Contact with and (suspected) exposure to COVID-19; Z91.041 Radiographic dye allergy status; Z59.01 Sheltered homelessness; Z79.85 Long-term (current) use of injectable non-insulin antidiabetic drugs; Z79.899 Other long term (current) drug therapy
CPT/HCPCS: 36415; 71045; 72100; 73080; 80048; 80053; 81003; 82550; 82947; 83036; 83735; 84443; 85025; 87635; 93005; 97116; 97162; 99285; J1650; J1885

== ENCOUNTER → 2022-10-16 13:36 | Outpatient (BNV) | payer OTHER, SELFPAY | PROVIDERS: Admitting Provider Student in an Organized Health Care Education/Training Program; Emergency Provider Emergency Medicine; Visit Provider Internal Medicine | DX: R94.31 Abnormal electrocardiogram [ECG] [EKG] (principal) | CPT/HCPCS: 93010 ==

== ENCOUNTER → 2022-10-16 20:19 | Outpatient (BNV) | payer OTHER, SELFPAY | PROVIDERS: Admitting Provider Student in an Organized Health Care Education/Training Program; Emergency Provider Emergency Medicine; Visit Provider Student in an Organized Health Care Education/Training Program | DX: M62.82 Rhabdomyolysis (principal); R53.1 Weakness | CPT/HCPCS: 99222; 99232; 99239 ==

== ENCOUNTER 2022-10-28 13:32 | Emergency (ER) | payer OTHER, SELFPAY ==
[2022-10-28 13:53] VITALS: BP 113/71; BP 127/79; PULSE 103; PULSE 95; RESP 16; TEMP 36.2; O2SAT 99; BMI 41.4
[2022-10-28 14:22] LABS: Appearance Urine Clear; Color Urine Yellow; Glucose Urine UA Negative (Negative); Leukocyte Esterase Urine Negative (Negative); Nitrite Urine Negative (Negative); Urine Blood Negative (Negative); Urine Ketones Trace mg/dL (Negative); Urine Protein Negative (Neg-Trace)
--- NOTE | 2022-10-28 14:29 | PC.NURSE ---
pt axox4, respirations even and unlabored, vss, skin wpd. pt reports he was told he was going to d/c from shelter care facility; fear of being homeless he made a statement to nurse at facility if I get d/c I'm just going to OD on fentanyl. pt denies thoughts of si/hi at this time; states I didn't mean it. pt reports feeling safe and happy at facility; feels therapy has been very beneficial. awaiting lab work and UA. pt denies questions/concerns; all needs met at this time. 15 [address] checks in [address].
[2022-10-28 14:33] LABS: Amphetamine Screen Urine Not Detected (Not Detect); Bacteria Urine None Seen (None Seen); Barbiturates, Urine Not Detected (Not Detect); Benzodiazepines Screen Urine POSITIVE (Not Detect); Cannabinoid Screen Urine Not Detected (Not Detect); Cocaine Screen Urine Not Detected (Not Detect); Fentanyl, urine Not Detected (Not Detect); Opiate Screen Urine Not Detected (Not Detect); Phencyclidine Screen Urine Not Detected (Not Detect); RBC Urine 0-2 /HPF (0-2); Squamous Epithelial Cell Urine 0-2 /HPF (0-2); WBC Urine 0-5 /HPF (0-5)
[2022-10-28 14:48] LABS: MANUAL DIFF FLAG NO
[2022-10-28 14:52] LABS: Basophils Percent Auto 0.5 % (0-2); Eosinophils Absolute Auto 0.1 X10*3/uL (0.0-0.4); Eosinophils Percent Auto 1.4 % (0-4); Hematocrit 42.7 % (42.0-52.0); Hemoglobin 14.3 g/dl (14.0-18.0); Imm Gran Abs Auto 0.03 X10*3/uL (0.00-0.03); Imm Gran Pct Auto 0.4 % (0.0-0.4); Lymphocytes Absolute Auto 1.5 X10*3/uL (1.2-4.9); Lymphocytes Percent Auto 19.8 % (20-40); Mean Corpuscular HGB Conc 33.5 g/dl (31.0-36.0); Mean Corpuscular Volume 92.4 fL (80.0-98.0); Mean Platelet Volume 9.2 fL (9.4-12.4); Monocytes Absolute Auto 0.5 X10*3/uL (0.1-1.2); Monocytes Percent Auto 7.2 % (2-11); Neutrophils Absolute Auto 5.2 x10*3/uL (2.0-8.3); Neutrophils Percent Auto 70.7 % (45-73); Platelet Count 225 X10*3/uL (160-400); Red Blood Count 4.62 X10*6/uL (4.60-5.80); Red Cell Distribution Width 13.1 % (11.0-16.0); White Blood Count 7.4 X10*3/uL (4.8-10.8)
--- NOTE | 2022-10-28 15:11 | ED.PSYCH ---
HPI - Psych General Chief Complaint: Psychiatric Symptoms Stated Complaint: Psych eval after SI Time Seen by Provider: 10/28/22 14:57 Source: patient, RN notes reviewed and old records reviewed Mode of arrival: EMS Limitations: no limitations History of Present Illness HPI Narrative: 67-year-old male with a past medical history of diabetes, HTN, mood disorder, peripheral neuropathy, GERD, IBS, presenting to the ED via EMS from SNF for vague SI verbalization. Of note, patient was recently discharged from our facility on 10/20 for rhabdomyolysis/generalized weakness. Patient states that he is not suicidal at present, & doesn't want to hurt himself or others. Admits facility told him he didn't have a termite treater bed, & plan was for discharge this patient got upset as he has no where to go and verbalized he would find Fentanyl to overdose. He admits that this was not a smart decision, but that he was frusturated in the moment. States he was living in a motel prior to his previous admission here, and that if he didn't receive a penitentiary placement he would end up in a long-term & has difficulty caring for himself at home. He states that he hasn't used any drug since 1999. denies CP/ SOB, abdominal pain, nausea/ vomiting, current EtOH or illicit drug use, SI/HI Related Data Home Medications Medication Instructions Recorded Confirmed acetaminophen 325 mg tablet 325 mg PO Q8H PRN Pain 10/16/22 10/16/22 clotrimazole 1 % topical cream 1 appl topical BID PRN jock itch / 10/16/22 10/16/22 toe fungus fluticasone propionate 50 1 spray intranasal DAILY PRN 10/16/22 10/16/22 mcg/actuation nasal Allergy Symptoms spray,suspension (Flonase Allergy Relief) magnesium oxide 400 mg (241.3 mg 400 mg PO DAILY 10/16/22 10/16/22 magnesium) tablet omeprazole 40 mg capsule,delayed 40 mg PO DAILY@0630 10/16/22 10/16/22 release semaglutide 0.25 mg or 0.5 mg (2 0.25 mg subcut TU@0900 10/16/22 10/16/22 mg/3 mL) subcutaneous pen injector (Ozempic) sucralfate 1 gram tablet 1 g PO BID 10/16/22 10/16/22 Previous Rx's Medication Instructions Recorded blood-glucose meter (FreeStyle #1 ea 04/19/21 Lite Meter kit) lisinopril 30 mg tablet 30 mg PO DAILY 90 days #90 tabs 01/09/22 pioglitazone 30 mg tablet 30 mg PO DAILY #90 tabs 01/09/22 tamsulosin 0.4 mg capsule 0.4 mg PO DAILY #90 caps 04/28/22 blood sugar diagnostic (FreeStyle #200 strips 06/21/22 Lite Strips) blood sugar diagnostic (FreeStyle #200 ea 06/24/22 Lite Strips) lancets 28 gauge (FreeStyle #200 ea 06/24/22 Lancets) plecanatide 3 mg tablet (Trulance) 3 mg PO DAILY 60 days #60 tabs 08/21/22 dicyclomine 20 mg tablet 20 mg PO TID PRN for abdominal 09/01/22 pain #60 tabs melatonin 3 mg capsule 3 mg PO BEDTIME PRN sleep #30 caps 09/01/22 cholecalciferol (vitamin D3) 25 25 mcg PO DAILY 30 days #30 caps 09/22/22 mcg (1,000 unit) capsule escitalopram oxalate 20 mg tablet 20 mg PO DAILY 90 days #90 tabs 09/24/22 gabapentin 300 mg capsule 300 mg PO BEDTIME #30 caps 09/24/22 sucralfate 1 gram tablet (Carafate) 1 g PO BID #60 tabs 09/24/22 ondansetron 8 mg disintegrating 8 mg PO Q12H PRN nausea and 10/02/22 tablet vomiting #14 tabs alprazolam 1 mg tablet 1 mg PO BID PRN anxiety #60 tabs 10/16/22 Allergies Allergy/AdvReac Type Severity Reaction Status Date / Time Iodinated Contrast Media Allergy Intermediate HIVES Verified 09/24/22 12:57 [IV CONTRAST] aspirin [From Percodan] Allergy Unknown Unknown Verified 09/24/22 12:57 codeine [CODEINE] Allergy Unknown DIFFICULTY Verified 09/24/22 12:57 BREATHING metformin Allergy Unknown Diarrhea Verified 09/24/22 12:57 oxycodone [From PERCOCET] Allergy Unknown DIFF Verified 09/24/22 12:57 BREATHING Penicillins [PENICILLINS] Allergy Unknown DIFFICULTY Verified 09/24/22 12:57 BREATHING Review of Systems Review of Systems: Constitutional: No Fever, No Chills, No Fatigue, Cardiovascular: No Chest Pain, No SOB, No Edema, No Palpitations Respiratory: No Cough, No Sputum, No Dyspnea Gastrointestinal: No Nausea, No Vomiting, No Diarrhea, No Constipation, No Abdominal pain Genitourinary: No irregular bleeding, No Dysuria, No Urinary Frequency, No Hematuria Musculoskeletal: No joint pain, No Joint Swelling Skin: No Skin Lesions, No rash Neuro: No Weakness, No Numbness, No Loss of Consciousness, No Dizziness, No Headache Psych: No Anxiety/Panic, No Depression, No SI/HI/AH/VH Yes all other systems are reviewed and are negative Constitutional: Constitutional: Reports as per [facility] Past Medical History Attestation statement: The following information was validated with the patient. Source: old records reviewed Medical History Adult failure to thrive Anemia Anxiety and depression Bilateral arm fractures Bilateral hand numbness Bilateral leg cramps BPH (benign prostatic hyperplasia) Zahida onychomycosis Chronic back pain Chronic constipation Cough Dark stools Flank pain Headache History of colon polyps History of COVID-19 (~02/27/21) History of drug abuse Hypercholesterolemia Hypertension LUQ abdominal pain Multiple joint pain Nausea Obesity (BMI 30-39.9) Physical deconditioning Pulmonary nodule, right Sinusitis Tinea cruris Type 2 diabetes mellitus with hyperglycemia Weight loss, unintentional Surgical History Hx of colonoscopy (07/06/12) Hx of esophagogastroduodenoscopy (11/18/11) S/P cholecystectomy Family History Family History Father Kidney tumor Heart attack Mother Kidney failure Lung cancer Diabetes CHF (congestive heart failure) Maternal Grandmother Gallbladder gangrene Sister Arthritis High blood pressure High cholesterol Cirrhosis of liver Sister No problems noted. Brother Heart attack High cholesterol Sister CHF (congestive heart failure) Diabetes Other Mental health disorder Social History Social History Household Members: None Housing: Other Housing Other:: motel Do you presently have visiting nurse or other home services: Yes Alcohol intake: former Patient Tobacco Use Status: Current everyday Tobacco user Tobacco use type: Cigarette Cigarette Packs Per Day: 1 Cigarettes Per Day: 20.0 Smoked in Last 30 Days: Yes e-Cigarette/Vaping Use: Never Used Second Hand Smoke Exposure: Yes Use of substances other than those prescribed or required for medical reasons: No Advance Directives: Yes Advance Directives on File: Yes Advance Directives Date on File: 07/29/21 service: No Current occupational status: retired and disabled Cognitive needs: No Hearing needs: No Vision needs: Yes (reading glasses) Physical Exam Vital Signs: Vital Signs: Last Vital Signs Temp 97.1 F 10/28/22 13:53 Pulse 95 10/28/22 13:53 Resp 16 10/28/22 13:53 BP 113/71 10/28/22 13:53 Pulse Ox 99 10/28/22 13:53 O2 Del Method Room Air 10/28/22 13:53 BMI result Body Mass Index 41.4 Const: General: cooperative, no acute distress, alert, awake and Physically active Orientation/consciousness: patient oriented x3 Limitations: no limitations HEENT: Head: Yes normal to inspection, Yes normocephalic and Yes atraumatic Ears: hearing grossly normal bilaterally and external ears normal General nose exam: Normal external nose present Face and sinus: Yes normal facial exam Eyes: General: appearance normal, both eyes and all related structures EOM: EOMs intact bilaterally Neck: Neck: Yes normal visual inspection and Yes no meningeal signs Resp: Effort & Inspection: normal respiratory effort, able to speak in complete sentences and no respiratory distress Auscultation: clear to auscultation bilaterally Cardio: Rate: regular rate Heart sounds: S1 normal heart sound present and S2 normal heart sound present GI: Inspection: Yes normal to inspection Palpation (GI): Soft to palpation, nontender and no guarding Skin: General skin exam: no rashes or lesions noted Rashes: no rashes Wounds: no wounds Neuro: General: patient oriented x3, gait normal and no meningeal signs Cranial nerves: Yes CN's II-XII intact bilaterally Gait exam (Neuro): Normal gait present Extrem: General: Yes normal to inspection Psych: Speech and movement: Normal speech and movement present and Clear speech present Affect: normal affect Attitude: cooperative Thought process: Normal thought process present Thought content: Normal thought content present, suicidality and no homicidality Course Course Course Narrative: - labs unremarkable. UA negative -Tox screen positive for benzos, otherwise unremarkable > patient is prescribed benzos >1609-- physician observation initiated its patient needs more time to be evaluated by CARE team -1630-- ED care transfer to [facility] pending CARE eval and anticipated dispo back to facility Reevaluation(s) Reevaluation #1: Patient cleared from care team, no indication for inpatient psychiatric services at this time. He is stable for transfer to long-term care facility; [facility].. Time: 17:55 Medications Administered Discontinued Medications Generic Name Dose Route Start Last Admin Trade Name Freq PRN Reason Stop Dose Admin Acetaminophen 650 mg 10/28/22 16:58 10/28/22 17:01 Acetaminophen 325 Mg Tablet PO 10/28/22 16:59 650 mg ONCE ONE Administration Medical Decision Making Medical Decision Making [facility] Narrative: 67-year-old male with a past medical history of diabetes, HTN, mood disorder, peripheral neuropathy, GERD, IBS, presenting to the ED via EMS from SNF for vague SI verbalization. On exam VSS, NAD, cooperative, with good judgement and affect, denies SI/HI at present. Concern for situational suicidal ideation in response to the potential lack of termite treater care placement. low suspicion for active SI/HI day, patient does not appear to pose threat to himself or others. Upon further talking with CARE team patient does have long-term placement at facility now, just needs medical clearance Plan: Labs, UA, Tox screen, Tylenol PRN for pain, CARE consult Differential Diagnosis Differential Diagnoses: The differential diagnosis associated with the presentation includes As above Admission/Observation Consideration of admission/observation: Escalation of care including admission/observation considered Consult Healthcare Provider Management of the patient was discussed with: Behavioral Health Provider Lab Data [facility] Lab Attestation statement: I reviewed the patient's lab results. 10/28/22 14:42 10/28/22 14:42 Labs: Lab Results 10/28/22 10/28/22 10/28/22 Range/Units 14:05 14:05 14:42 WBC 7.4 (4.8-10.8) X10*3/uL RBC 4.62 (4.60-5.80) X10*6/uL Hgb 14.3 (14.0-18.0) g/dl Hct 42.7 (42.0-52.0) % MCV 92.4 (80.0-98.0) fL MCH 31.0 (27.0-33.0) pg MCHC 33.5 (31.0-36.0) g/dl RDW 13.1 (11.0-16.0) % Plt Count 225 (160-400) X10*3/uL MPV 9.2 L (9.4-12.4) fL Immature Gran % (Auto) 0.4 (0.0-0.4) % Neut % (Auto) 70.7 (45-73) % Lymph % (Auto) 19.8 L (20-40) % [place] % (Auto) 7.2 (2-11) % Eos % (Auto) 1.4 (0-4) % Baso % (Auto) 0.5 (0-2) % Lymph # (Auto) 1.5 (1.2-4.9) X10*3/uL [place] # (Auto) 0.5 (0.1-1.2) X10*3/uL Eos # (Auto) 0.1 (0.0-0.4) X10*3/uL Baso # (Auto) 0.0 (0.0-0.2) X10*3/uL Abs Immat Gran (auto) 0.03 (0.00-0.03) X10*3/uL Absolute Neuts (auto) 5.2 (2.0-8.3) x10*3/uL Absolute Nucleated RBC 0.000 (0.0-0.012) X10*3/uL Nucleated RBC % (auto) 0.0 (0.0-0.2) /100WBC Sodium (135-145) mmol/L Potassium (3.3-5.1) mmol/L Chloride (96-108) mmol/L Carbon Dioxide (22-29) mmol/L Anion Gap (12-20) BUN (9-16) mg/dL Creatinine (0.5-1.4) mg/dL Estim Creat Clear Calc Estimated GFR Random Glucose (60-115) mg/dL Calcium (8.4-10.2) mg/dL Total Bilirubin (0.0-1.0) mg/dL AST (5-37) U/L ALT (0-40) U/L Alkaline Phosphatase (39-117) U/L Total Creatine Kinase (38-174) U/L Total Protein (6.5-8.0) g/dL Albumin (3.5-5.0) g/dL Urine Color Yellow Urine Appearance Clear Urine pH 6.0 (5.0-9.0) Ur Specific [place] 1.020 (1.005-1.025) Urine Protein Negative (Neg-Trace) mg/dL Urine Glucose (UA) Negative (Negative) mg/dL Urine Ketones Trace (Negative) mg/dL Urine Blood Negative (Negative) Urine Nitrite Negative (Negative) Ur Leukocyte Esterase Negative (Negative) Urine RBC 0-2 (0-2) /HPF Urine WBC 0-5 (0-5) /HPF Ur Squamous Epith Cells 0-2 (0-2) /HPF Urine Bacteria None Seen (None Seen) Hyaline Casts 3-5 (0-2) /LPF Salicylates (15-30) mg/dL Urine Opiates Screen Not Detected (Not Detect) Urine Fentanyl Screen Not Detected (Not Detect) Acetaminophen (<30) mcg/mL Ur Barbiturates Screen Not Detected (Not Detect) Ur Phencyclidine Scrn Not Detected (Not Detect) Ur Amphetamines Screen Not Detected (Not Detect) U Benzodiazepines Scrn POSITIVE H (Not Detect) Urine Cocaine Screen Not Detected (Not Detect) U Marijuana (THC) Screen Not Detected (Not Detect) Ethyl Alcohol mg/dL 10/28/22 10/28/22 Range/Units 14:42 14:42 WBC (4.8-10.8) X10*3/uL RBC (4.60-5.80) X10*6/uL Hgb (14.0-18.0) g/dl Hct (42.0-52.0) % MCV (80.0-98.0) fL MCH (27.0-33.0) pg MCHC (31.0-36.0) g/dl RDW (11.0-16.0) % Plt Count (160-400) X10*3/uL MPV (9.4-12.4) fL Immature Gran % (Auto) (0.0-0.4) % Neut % (Auto) (45-73) % Lymph % (Auto) (20-40) % [place] % (Auto) (2-11) % Eos % (Auto) (0-4) % Baso % (Auto) (0-2) % Lymph # (Auto) (1.2-4.9) X10*3/uL [place] # (Auto) (0.1-1.2) X10*3/uL Eos # (Auto) (0.0-0.4) X10*3/uL Baso # (Auto) (0.0-0.2) X10*3/uL Abs Immat Gran (auto) (0.00-0.03) X10*3/uL Absolute Neuts (auto) (2.0-8.3) x10*3/uL Absolute Nucleated RBC (0.0-0.012) X10*3/uL Nucleated RBC % (auto) (0.0-0.2) /100WBC Sodium 137 (135-145) mmol/L Potassium 4.4 D (3.3-5.1) mmol/L Chloride 105 (96-108) mmol/L Carbon Dioxide 25 (22-29) mmol/L Anion Gap 11 L (12-20) BUN 15 (9-16) mg/dL Creatinine 0.99 (0.5-1.4) mg/dL Estim Creat Clear Calc 101.4 Estimated GFR > 60 Random Glucose 150 H (60-115) mg/dL Calcium 10.0 D (8.4-10.2) mg/dL Total Bilirubin 0.3 (0.0-1.0) mg/dL AST 14 (5-37) U/L ALT 16 (0-40) U/L Alkaline Phosphatase 63 (39-117) U/L Total Creatine Kinase 150 (38-174) U/L Total Protein 6.6 (6.5-8.0) g/dL Albumin 4.0 (3.5-5.0) g/dL Urine Color Urine Appearance Urine pH (5.0-9.0) Ur Specific [place] (1.005-1.025) Urine Protein (Neg-Trace) mg/dL Urine Glucose (UA) (Negative) mg/dL Urine Ketones (Negative) mg/dL Urine Blood (Negative) Urine Nitrite (Negative) Ur Leukocyte Esterase (Negative) Urine RBC (0-2) /HPF Urine WBC (0-5) /HPF Ur Squamous Epith Cells (0-2) /HPF Urine Bacteria (None Seen) Hyaline Casts (0-2) /LPF Salicylates < 5.0 L (15-30) mg/dL Urine Opiates Screen (Not Detect) Urine Fentanyl Screen (Not Detect) Acetaminophen < 17 (<30) mcg/mL Ur Barbiturates Screen (Not Detect) Ur Phencyclidine Scrn (Not Detect) Ur Amphetamines Screen (Not Detect) U Benzodiazepines Scrn (Not Detect) Urine Cocaine Screen (Not Detect) U Marijuana (THC) Screen (Not Detect) Ethyl Alcohol < 10 mg/dL Radiology Impression Discussion of test interpretation with radiology: I have reviewed the radiologist's reading. Independent Historian Clinical information obtained from an independent historian. History obtained from or confirmed by: EMS External Record Review External record reviewed: Inpatient record, Office record, Outpatient record, Prior outpatient labs, Prior outpatient radiology, Primary care record and Outside ED record Tests considered The following testing was considered but not selected: As above Prescription Management I considered prescription management with: Pain Medication Chronic Conditions Patient?s care impacted by: Diabetes and Hypertension Social Determinants Patient?s care significantly limited by Social Determinants of Health including: Inadequate housing, Low income, Problems related to primary support group, Unemployment and Problems related to employment Discharge Plan Discharge Clinical Impression: Distressed about housing issues Patient Disposition: Home, Self-Care Prescriptions: No Action (DME) blood-glucose meter [FreeStyle Lite Meter] Kit See Rx Instructions .ROUTE .MEDSUPPLY Qty: 1 0RF Rx Instructions: As directed pioglitazone 30 mg tablet 30 mg PO DAILY Qty: 90 3RF lisinopril 30 mg tablet 30 mg PO DAILY 90 Days Qty: 90 2RF tamsulosin 0.4 mg capsule 0.4 mg PO DAILY Qty: 90 2RF (DME) FreeStyle Lite Strips Strip See Rx Instructions .ROUTE .COMPLEX Qty: 200 3RF Dose Instruction: USE TO TEST FINGER STICK BLOOD SUGAR two (2) times a day Rx Instructions: USE TO TEST FINGER STICK BLOOD SUGAR two (2) times a day Trulance 3 mg tablet 3 mg PO DAILY 60 Days Qty: 60 3RF dicyclomine 20 mg tablet 20 mg PO TID PRN (Reason: for abdominal pain) Qty: 60 3RF melatonin 3 mg capsule 3 mg PO BEDTIME PRN (Reason: sleep) Qty: 30 3RF cholecalciferol (vitamin D3) 25 mcg (1,000 unit) capsule 25 mcg PO DAILY 30 Days Qty: 30 5RF ondansetron 8 mg tablet,disintegrating 8 mg PO Q12H PRN (Reason: nausea and vomiting) Qty: 14 2RF alprazolam 1 mg tablet 1 mg PO BID PRN (Reason: anxiety) Qty: 60 0RF magnesium oxide 400 mg (241.3 mg magnesium) tablet 400 mg PO DAILY Ozempic 0.25 mg or 0.5 mg (2 mg/3 mL) pen injector 0.25 mg subcut TU@0900 omeprazole 40 mg capsule,delayed release(DR/EC) 40 mg PO DAILY@0630 fluticasone propionate [Flonase Allergy Relief] 50 mcg/actuation spray,suspension 1 spray intranasal DAILY PRN (Reason: Allergy Symptoms) Rx Instructions: administer into each nostril clotrimazole 1 % cream 1 appl topical BID PRN (Reason: jock itch / toe fungus) acetaminophen 325 mg Tablet 325 mg PO Q8H PRN (Reason: Pain) sucralfate 1 gram tablet 1 g PO BID (DME) FreeStyle Lite Strips Strip See Rx Instructions .ROUTE .MEDSUPPLY Qty: 200 3RF Rx Instructions: As directed check the BS BID (DME) lancets [FreeStyle Lancets] 28 gauge misc See Rx Instructions .ROUTE .MEDSUPPLY Qty: 200 3RF Rx Instructions: As directed check the blood sugars twice a day gabapentin 300 mg capsule 300 mg PO BEDTIME Qty: 30 3RF sucralfate [Carafate] 1 gram tablet 1 g PO BID Qty: 60 0RF escitalopram oxalate 20 mg tablet 20 mg PO DAILY 90 Days Qty: 90 1RF Interventions: [place]-Suicide Risk Severity Scale Last Done: 10/28/22 14:12
[2022-10-28 15:14] LABS: Acetaminophen LAB < 17 mcg/mL (<30); Alanine Aminotransferase 16 U/L (0-40); Alkaline Phosphatase 63 U/L (39-117); Anion Gap 11 (12-20); Aspartate Amino Transferase 14 U/L (5-37); Bilirubin Total 0.3 mg/dL (0.0-1.0); Blood Urea Nitrogen 15 mg/dL (9-16); Carbon Dioxide 25 mmol/L (22-29); Chloride 105 mmol/L (96-108); Creatinine Clr Calc Pharmacy 101.4; Estimated Glomerular Filt Rate > 60; Ethanol < 10 mg/dL; Glucose Random 150 mg/dL (60-115); Potassium 4.4 mmol/L (3.3-5.1); Salicylate < 5.0 mg/dL (15-30); Sodium 137 mmol/L (135-145); Total Protein 6.6 g/dL (6.5-8.0)
--- NOTE | 2022-10-28 16:39 | MHC.CARE ---
Patient assessed by CARE team, is not voluntary for inpt LOC and does not meet threshold for section 12. Denies current SI and engages logically and coherently in assessment. [facility] aware he will be returning, post assessment.
[2022-10-28] MEDS: Acetaminophen 325 MG TABLET 650 MG PO (17:01)
== END 2022-10-28 19:51 ==
PROVIDERS: Physician Assistant; Emergency Provider Student in an Organized Health Care Education/Training Program; PCP Internal Medicine
DX: R45.851 Suicidal ideations (principal); Z72.89 Other problems related to lifestyle; Z59.811 Housing instability, housed, with risk of homelessness; E11.9 Type 2 diabetes mellitus without complications; I10 Essential (primary) hypertension; F17.210 Nicotine dependence, cigarettes, uncomplicated; Z79.899 Other long term (current) drug therapy
CPT/HCPCS: 36415; 80053; 80143; 80179; 80307; 81001; 82550; 85025; 99284; S9485

== ENCOUNTER 2023-01-08 13:51 | Outpatient (AMB) | payer OTHER, SELFPAY ==
[2023-01-08 14:04] VITALS: BP 128/72; PULSE 85; O2SAT 96; BMI 38.9
--- NOTE | 2023-01-08 14:04 | A.OFFPC_ITS ---
Vital Signs 01/08/23 14:04 Height 5 ft 11 in Weight 279 lb BMI 38.9 BP 128/72 Blood Pressure Location Lt brachial Position Sitting Pulse 85 Pulse Source Pulse Oximeter Pulse Oximetry (%) 96 Oxygen Delivery Method Room Air Intake Visit Reasons: DM Allergies Iodinated Contrast Media [IV CONTRAST] Allergy (Intermediate, Verified 01/08/23 14:05) HIVES aspirin [From Percodan] Allergy (Unknown, Verified 01/08/23 14:05) Unknown codeine [CODEINE] Allergy (Unknown, Verified 01/08/23 14:05) DIFFICULTY BREATHING metformin Allergy (Unknown, Verified 01/08/23 14:05) Diarrhea oxycodone [From PERCOCET] Allergy (Unknown, Verified 01/08/23 14:05) DIFF BREATHING Penicillins [PENICILLINS] Allergy (Unknown, Verified 01/08/23 14:05) DIFFICULTY BREATHING Medication List - Last Reconciled 01/08/23 by Mak Devlin, acetaminophen 325 mg PO Q8H PRN alprazolam 1 mg PO BID PRN blood sugar diagnostic (FreeStyle Lite Strips) USE TO TEST FINGER STICK BLOOD SUGAR two (2) times a day blood sugar diagnostic (FreeStyle Lite Strips) As directed check the BS BID blood-glucose meter (FreeStyle Lite Meter kit) As directed cholecalciferol (vitamin D3) 25 mcg PO DAILY 30 days clotrimazole 1% 1 appl topical BID PRN dicyclomine 20 mg PO TID PRN escitalopram oxalate 20 mg PO DAILY 90 days fluticasone propionate 50 mcg/actuation (Flonase Allergy Relief) 1 spray intranasal DAILY PRN gabapentin 300 mg PO BEDTIME lancets (FreeStyle Lancets) As directed check the blood sugars twice a day lisinopril 30 mg PO DAILY 90 days magnesium oxide 400 mg PO DAILY melatonin 3 mg PO BEDTIME PRN omeprazole 40 mg PO DAILY@0630 ondansetron 8 mg PO Q12H PRN pioglitazone 30 mg PO DAILY plecanatide (Trulance) 3 mg PO DAILY 60 days semaglutide (Ozempic) 0.25 mg subcut TU@0900 sucralfate 1 g PO BID tamsulosin 0.4 mg PO DAILY Tobacco use date assessed: 03/25/22 Fall risk assessment: 2 + Falls in past year Last assessed Fall Risk: 01/08/23 Dental Screening Dental Screen Date: 01/08/23 Did you have a dental visit in the last 12 months?: No Did you have a dental problem in the last 6 months where you did not have access to dental care?: No Was dental information given to patient?: No HPI DM HPI Details 67-year-old obese male smoker with gener alized anxiety disorder BPH controlled diabetes mellitus hypertension hypercholesterolemia and GERD last seen in September 2019 up-to-date with colonoscopy. Noted ER visit October 2022 rhabdomyolysis this is after a fall. Has a chronic elevation in CPK and was advised to stop statins. State sick- [facility] in [facility] now . seeing a psychiatrist now [facility] Medical History Adult failure to thrive Anemia Anxiety and depression Bilateral arm fractures Bilateral hand numbness Bilateral leg cramps BPH (benign prostatic hyperplasia) Zahida onychomycosis Chronic back pain Chronic constipation Cough Dark stools Flank pain Headache History of colon polyps History of COVID-19 (~02/27/21) History of drug abuse Hypercholesterolemia Hypertension LUQ abdominal pain Multiple joint pain Nausea Obesity (BMI 30-39.9) Physical deconditioning Pulmonary nodule, right Sinusitis Tinea cruris Type 2 diabetes mellitus with hyperglycemia Weight loss, unintentional Surgical History Hx of colonoscopy (07/06/12) Hx of esophagogastroduodenoscopy (11/18/11) S/P cholecystectomy Family History Father Kidney tumor Heart attack Mother Kidney failure Lung cancer Diabetes CHF (congestive heart failure) Maternal Grandmother Gallbladder gangrene Sister Arthritis High blood pressure High cholesterol Cirrhosis of liver Sister No problems noted. Brother Heart attack High cholesterol Sister CHF (congestive heart failure) Diabetes Other Mental health disorder Social History Household Members: None Housing: Other Housing Other:: motel Do you presently have visiting nurse or other home services: Yes Alcohol intake: former Patient Tobacco Use Status: Current everyday Tobacco user Tobacco use type: Cigarette Cigarette Packs Per Day: 1 Cigarettes Per Day: 10 e-Cigarette/Vaping Use: Never Used Second Hand Smoke Exposure: Yes Advance Directives Date on File: 07/29/21 service: No Current occupational status: retired and disabled Cognitive needs: No Hearing needs: No Vision needs: Yes (reading glasses) Questionnaire PHQ-9 Over the last 2 weeks, how often have you been bothered by any of the following problems? 1. Little interest or pleasure in doing things: several days 2. Feeling down, depressed, or hopeless: nearly every day 3. Trouble falling or staying asleep, or sleeping too much: nearly every day 4. Feeling tired or having little energy: nearly every day 5. Poor appetite or overeating: not at all 6. Feeling bad about yourself - or that you are a failure or have let yourself or your family down: nearly every day 7. Trouble concentrating on things, such as reading the newspaper or watching television: nearly every day 8. Moving or speaking so slowly that other people could have noticed. Or the opposite - being so fidgety or restless that you have been moving around a lot more than usual: nearly every day 9. Thoughts that you would be better off or of hurting yourself in some way: not at all Total score: 19 Depression Screening Interpretation: Positive Depression Screening Follow-up: Declines treatment Depression Screening Done: Yes 86770 - PHQ-9 Billing: Yes Source: Developed by Drs. Nestor Boyce, Darlene Don, Warren Leblanc and colleagues, with an educational bhavna from [employer]. Thrive Questionnaire Date Thrive assessed: 10/16/22 AUDIT C Alcohol Use Questionnaire (AUDIT-C) 1. How often do you have a drink containing alcohol?: Never 2. How many drinks containing alcohol do you have on a typical day when you are drinking?: 1 or 2 (0) 3. How often do you have six or more drinks on one occasion?: Never Total Score: 0 Score Reviewed/Action Taken: No NONI-7 AMB Questionnaire NONI-7 Date NONI - 7 assessed: 03/25/22 Source: Developed by Drs. Nestor Boyce, Warren Bell and colleagues, with an educational bhavna from [employer]. Physical exam (Primary Care) Vital Signs: Last Vital Signs Pulse 85 01/08/23 14:04 BP 128/72 01/08/23 14:04 Pulse Ox 96 01/08/23 14:04 Oxygen Delivery Method Room Air 01/08/23 14:04 BMI result Body Mass Index 38.9 Tobacco/Smoking Status: Tobacco use Status Tobacco use date assessed 03/25/22 01/08/23 14:14 Patient Tobacco Use Status Current everyday Tobacco 01/08/23 14:14 Tobacco use type Cigarette 01/08/23 14:14 e-Cigarette/Vaping Use Never Used 01/08/23 14:14 PHQ-9: PHQ-9 Score PHQ-9: Total score 19 01/08/23 14:25 Depression Screening Interpretation: Positive Depression Screening Follow-up: Declines treatment Thrive Assessment: Date of Thrive Assessment Date Thrive assessed 10/16/22 01/08/23 14:14 Const General: alert; No acute distress Eyes Conjunctivae: conjunctivae normal Resp Auscultation: clear to auscultation bilaterally Cardio Rate: regular rate Rhythm: regular rhythm GI Inspection: Yes normal to inspection Extrem General: Yes normal to inspection and No edema Results AMB Hemoglobin A1c AMB Hemoglobin A1c 5.4 % Last Edit by Zenia Dietrich [facility] on 01/08/23 14 :21 AMB Urinalysis, Automated UA Leukoctes 0 Pham/uL Last Edit by Zuleyma Roth COUNTS INCLUDE 234 BEDS AT [facility] on 01/08/23 15:00 UA Nitrite Negative Last Edit by Zuleyma Roth, COUNTS INCLUDE 234 BEDS AT [facility] on 01/08/23 15:00 UA Urobilinogen 0 mg/dL Last Edit by Zuleyma Roth COUNTS INCLUDE 234 BEDS AT [facility] on 01/08/23 15:00 UA Protein 0 mg/dL Last Edit by Zuleyma Roth COUNTS INCLUDE 234 BEDS AT [facility] on 01/08/23 15:00 UA pH 6.0 Last Edit by Zuleyma Roth, COUNTS INCLUDE 234 BEDS AT [facility] on 01/08/23 15:00 UA Blood 0 Eliot/uL Last Edit by Zuleyma Roth, COUNTS INCLUDE 234 BEDS AT [facility] on 01/08/23 15:00 UA Specific [place] 1.015 Last Edit by Zuleyma Roth, COUNTS INCLUDE 234 BEDS AT [facility] on 01/08/23 15:00 UA Ketone Negative Last Edit by Zuleyma Roth COUNTS INCLUDE 234 BEDS AT [facility] on 01/08/23 15:00 UA Bilirubin 0 mg/dL Last Edit by Zuleyma Roth COUNTS INCLUDE 234 BEDS AT [facility] on 01/08/23 15:00 UA Glucose 0 mg/dL Last Edit by MARK Diaz on 01/08/23 15:00 Results Reviewed Results Reviewed: Laboratory Last Values Hgb A1c (Clinic) 5.4 % (4.0-6.0) 01/08/23 13:59 Assessment and Plan Assessment & Plan (1) Type 2 diabetes mellitus with hyperglycemia: Comment: decline eye doctor 09/2022 Code(s): E11.65 - Type 2 diabetes mellitus with hyperglycemia Qualifiers: Diabetes mellitus fdc insulin use: without buttermaker helper use Qualified Code(s): E11.65 - Type 2 diabetes mellitus with hyperglycemia Plan: Decrease the amount of carbohydrate intake, pasta, bread, rice and potatoes are all sugar and that is aside from all the sweet stuff, remember that fruits are good but they are Sweet also. Hemoglobin A1c goal of less than 7.0. Patient is on ideal is on 30 mg once a day and semaglutide (2) Obesity (BMI 30-39.9): Code(s): E66.9 - Obesity, unspecified Plan: Diet and exercise noted weight loss (3) Hypertension: Code(s): I10 - Essential (primary) hypertension Qualifiers: Hypertension type: essential hypertension Qualified Code(s): I10 - Essential (primary) hypertension Plan: Continue with blood pressure medication. Decrease salt intake and exercise patient takes lisinopril 30 mg once a day (4) Hypercholesterolemia: Comment: Statins taken out due to chronic CPK elevation 2022 Code(s): E78.00 - Pure hypercholesterolemia, unspecified Plan: Avoid fried foods, chicken skin, eggs, butter margarine, pastries and meat. Be it pork or beef they have a lot of cholesterol LDL goal of less than 100 and triglyceride of less than 150 patient was taken off statins due to chronic CPK elevation (5) Tobacco abuse: Code(s): Z72.0 - Tobacco use Plan: Patient strongly advised to stop smoking (6) GERD (gastroesophageal reflux disease): Comment: Barretts esophagus GEJ Bx 2008, NEG 2011. Sm hiatal hernia (EGD 10/2008). Code(s): K21.9 - Gastro-esophageal reflux disease without esophagitis Plan: Avoid the foods that causes that usually spicy foods, tomato products, juices, coffee, soda and foods that your sensitive to. After eating do not lie down, allow 3-4 hours before in lie down. And keep the head of bed above 30 degrees to avoid the acid from going up. (7) BPH (benign prostatic hyperplasia): Code(s): N40.0 - Benign prostatic hyperplasia without lower urinary tract symptoms Plan: Continue with tamsulosin (8) Generalized anxiety disorder: Code(s): F41.1 - Generalized anxiety disorder Plan: Discussed about continuation of therapy and counseling Orders: Orders AMB Hemoglobin A1c Today Z13.9 - Encounter for screening, unspecified Amylase Today E11.65 - Type 2 diabetes mellitus with hyperglycemia Lipase Today E11.65 - Type 2 diabetes mellitus with hyperglycemia UA w Microscopic Today E11.65 - Type 2 diabetes mellitus with hyperglycemia Creatine Kinase Total Today E11.65 - Type 2 diabetes mellitus with hyperglycemia AMB Urinalysis Automated Today E11.65 - Type 2 diabetes mellitus with hyperglycemia, Z13.9 - Encounter for screening, unspecified Medications: Changed From sucralfate 1 g PO QIDACHS E11.65 - Type 2 diabetes mellitus with hyperglycemia To sucralfate 1 g PO QIDACHS 30 days 90 tabs 3RF E11.65 - Type 2 diabetes mellitus with hyperglycemia Coding Level of Care Code Est Pt Level 4 (56666) Diagnoses Type 2 diabetes mellitus with hyperglycemia, without long-term current use of insulin E11.65 Diabetes mellitus fdc insulin use: without buttermaker helper use Obesity (BMI 30-39.9) E66.9 Essential hypertension I10 Hypertension type: essential hypertension Hypercholesterolemia E78.00 Tobacco abuse Z72.0 GERD (gastroesophageal reflux disease) K21.9 BPH (benign prostatic hyperplasia) N40.0 Generalized anxiety disorder F41.1
== END 2023-01-08 14:55 | disposition home or self-care (01) ==
PROVIDERS: PCP Internal Medicine; Visit Provider Internal Medicine
DX: E11.65 Type 2 diabetes mellitus with hyperglycemia (principal); I10 Essential (primary) hypertension; N40.0 Benign prostatic hyperplasia without lower urinary tract symptoms; E78.00 Pure hypercholesterolemia, unspecified; Z72.0 Tobacco use; K21.9 Gastro-esophageal reflux disease without esophagitis; F41.1 Generalized anxiety disorder
CPT/HCPCS: 81003; 83036; 99214

== ENCOUNTER 2023-05-14 08:25 | Outpatient (AMB) | payer OTHER, SELFPAY ==
--- NOTE | 2023-05-14 08:29 | A.OFFVIS_ITS ---
Intake Vital Signs 05/14/23 08:37 Height 5 ft 11 in Weight 294 lb BMI 41.0 BP 128/64 Blood Pressure Location Lt brachial Position Sitting Pulse 91 Intake Visit Reasons: loose stools, pains in stomach Intake Note: Patient follow up for abdominal pain and loose stool. Patient cc: Nauseas,abdominal pain with bloating, and between diarrhea and constipation. Medical Technician Assistant Required: No Accompanied by: Self / Same As Patient Allergies Iodinated Contrast Media [IV CONTRAST] Allergy (Intermediate, Verified 05/14/23 08:29) HIVES aspirin [From Percodan] Allergy (Unknown, Verified 05/14/23 08:29) Unknown codeine [CODEINE] Allergy (Unknown, Verified 05/14/23 08:29) DIFFICULTY BREATHING metformin Allergy (Unknown, Verified 05/14/23 08:29) Diarrhea oxycodone [From PERCOCET] Allergy (Unknown, Verified 05/14/23 08:29) DIFF BREATHING Penicillins [PENICILLINS] Allergy (Unknown, Verified 05/14/23 08:29) DIFFICULTY BREATHING Medication List - Last Reconciled 05/14/23 by Yana Nye MD acetaminophen 325 mg PO Q8H PRN alprazolam 1 mg PO BID PRN blood sugar diagnostic (FreeStyle Lite Strips) USE TO TEST FINGER STICK BLOOD SUGAR two (2) times a day blood sugar diagnostic (FreeStyle Lite Strips) As directed check the BS BID blood-glucose meter (FreeStyle Lite Meter kit) As directed cholecalciferol (vitamin D3) 25 mcg PO DAILY 30 days clotrimazole 1% 1 appl topical BID PRN dicyclomine 20 mg PO TID PRN escitalopram oxalate 20 mg PO DAILY 90 days fluticasone propionate 50 mcg/actuation (Flonase Allergy Relief) 1 spray intranasal DAILY PRN gabapentin 300 mg PO BEDTIME lancets (FreeStyle Lancets) As directed check the blood sugars twice a day lisinopril 30 mg PO DAILY 90 days magnesium oxide 400 mg PO DAILY melatonin 3 mg PO BEDTIME PRN omeprazole 40 mg PO DAILY@0630 ondansetron 8 mg PO Q12H PRN pioglitazone 30 mg PO DAILY plecanatide (Trulance) 3 mg PO DAILY 60 days semaglutide (Ozempic) 0.25 mg subcut TU@0900 sucralfate 1 g PO QIDACHS 30 days tamsulosin 0.4 mg PO DAILY HPI loose stools, pains in stomach HPI Details GI CLINIC VISIT FOR THIS 67-YEAR-OLD MALE FOR FOLLOW-UP OF ANXIETY, WEIGHT LOSS, CONSTIPATION HISTORY OF COLON POLYPS. PT DOES NOT HAVE A CELL PHONE ANYMORE. I called [facility] at [phone] - room 26 to contact the patient. Pt was hospitalized in Oct 2021 at [facility] with rhabdomyolysis with elevated LFTs. Pt called the GI RN to schedule an Urgent FU appt: Dr Popeye Yuen, this very anxious gentleman called in from rehab skilled nursing in [place]. He is there due to frequent falls. Reports he has been having loose stools/diarrhea (pt taking dulcolax and magnesi um daily), Denies n/v, fever, reports sharp pains under his left ribcage, has hiccups, area under left ribs is tender to touch. Pt denies falling on chest/rib area. Reports telling doctor at Rehab facility his s/s, was told pulled muscle, pt does not believe him. Pt thinks he has pancreatitis or stomach cancer. Reviewed his upper and colon findings with him tried to calm pt, reassured he does not have stomach cancer. Instructed pt to try placing warm pack on his abdomen, he may have trapped gas. Told pt I would contact you as he requested and inform you of his symptoms. Pt asking to be seen by you next week, informed him you do not have any available time right now until January, but I will call him back tomorrow to F/U our call. Pt's number [phone] (for my reference). Thank you, Elisail ?LABS IN [facility] :?10/04/19 SHOWED MILD ANEMIA WITH HEMATOCRIT OF 41, NORMAL LFTS, LIPASE AND VITAMIN B12. ? STOOL C DIFF ANTIGEN WAS NEGATIVE ?IMAGING STUDIES: 09/14/[address] SCAN SHOWED: ? Diverticulosis of the colon. Fluid-filled distended loops of small ? bowel and small bowel feces sign probably representing small bowel ? stasis. No dilated loops of bowel or transition zone to suggest ? obstruction. Left renal cyst. ?ENDOSCOPIC STUDIES: 06/2021 EGD AND COLONOSCOPY SHOWED: ESOPHAGUS: Tortuous esophagus with increased tertiary contractions without stricture or ring. GE junction at 40 cms. No esophagitis or Hughes's. STOMACH: A 3-4 mm benign appearing polyp in the gastric body - biopsied. Two 1 cms calcified benign appearing nodules in the fundus unchanged from last EGD (benign on biopsies obtained during last EGD). Moderate diffuse gastric erythema. Biopsies were obtained. DUODENUM: A 7-8 mm benign appearing nodule in the apex of the bulb - biopsied. Colonoscopy Findings: Eight small to medium sized polyps removed Moderate diverticulosis seen in the left colon Moderate hemorrhoids on retroflexed exam. Plan:? Repeat Colonoscopy in 2 years if polyps are adenomatous and due to a hx of multiple colon polyps. ?BIOPSIES SHOWED: ? A.? Duodenum, nodule, biopsy:? Duodenal mucosa with predominantly preserved villi, hyperplastic Josiah's glands, and mild chronic active non- specific/peptic duodenitis. ? B.? Gastric polyp, biopsy:? Gastric body mucosa with mild features suggesting proton pump inhibitor effect, otherwise no specific change and no polyp identified; negative for H. pylori. ? C.? Colon, ascending, three polyps:? Tubular adenomas (2 of 4 pieces involved); negative for high grade dysplasia and carcinoma. ? D.? Colon, transverse, four polyps:? Tubular adenomas (2 of 6 pieces involved); negative for high grade dysplasia and carcinoma. ? E.? Colon, sigmoid, polyp:? Tubular adenoma (2 pieces involved); negative for high grade dysplasia and carcinoma. ??TODAY'S VISIT: Patient follow up for abdominal pain and loose stool. 13 lbs wt gain over the past year. Pt is residing in [place] (a halfway care facility) His sister has dementia and lives in the same facility. Complains of generalized abdominal pain and pain in the middle of the back, legs and groin. 90% of the time, he gets hiccups after e ating. Complains of nausea and intermittent vomiting and nausea pills do not help. Stool comes out as mud. No BM x 3-4 days, then has stools followed by diarrhea. Some days coffee does not bother him on some days and some days it does. Has pains in is rib cage Seeing a psychiatrist and was started on Psyche medications which are not working per patient. PAST VISITS: Diarrhea x 3 weeks - brown stools Took some imodium and it stopped. Notes pains in the back and the rib cage, legs, arms, chest and groin and legs Burning sensation in the body. Tried some pepbtobismol with passage of black stools. Trying to stay on a bland diarrhea. Takes a pot pie and sees carrots and peas in the stool. Sleeps a couple of hours and wakes up in a few hrs. Feels like he is drained. Gets hiccups even when he drinks water. Pt advised to resume Trulance on 02/21/22 if no BM by tomorrow Complains of LUQ pain radiating into the ribs and back Notes pain on moving. Has back pain. Reglan is not helping with nausea Bad hiccups BMs can vary from bulky to thin. BM are dark in color. Wt gain from 250 to 280 lbs over the past 2 yrs. ? Feeling lousy - not doing good. ? ? ? Dizziness, twitching in the eyes and queasiness in the upper part of stomach ?? ? Stools are grainy and dark brown. ?? ? Has a BM every 2 days. ?? ? Feels cold and sweats a lot. ?? ? Wt has increased ?? ? Concerned he may have a brain tumor and advised to contact his PCP to discuss further evaluation. ?? ? Continues to have constipation ? ? ? Stomach bothers him, stomach is all messed. ? ? ? Stomach yanes. ? ? ? Stool are thin and mushy. Intermittent dysphagia to solids every few months - with rice. Feels food gets caught in the chest. Denies problems with liquids. Tried Trulance for a month and was not?helpful [facility] Medical History Adult failure to thrive Anemia Anxiety and depression Bilateral arm fractures Bilateral hand numbness Bilateral leg cramps BPH (benign prostatic hyperplasia) Zahida onychomycosis Chronic back pain Chronic constipation Cough Dark stools Flank pain Headache History of colon polyps History of COVID-19 (~02/27/21) History of drug abuse Hypercholesterolemia Hypertension LUQ abdominal pain Multiple joint pain Nausea Obesity (BMI 30-39.9) Physical deconditioning Pulmonary nodule, right Sinusitis Tinea cruris Type 2 diabetes mellitus with hyperglycemia Weight loss, unintentional Surgical History S/P cholecystectomy Hx of esophagogastroduodenoscopy (11/18/11) Hx of colonoscopy (07/06/12) Family History Father Kidney tumor Heart attack Mother Kidney failure Lung cancer Diabetes CHF (congestive heart failure) Maternal Grandmother Gallbladder gangrene Sister Arthritis High blood pressure High cholesterol Cirrhosis of liver Sister No problems noted. Brother Heart attack High cholesterol Sister CHF (congestive heart failure) Diabetes Other Mental health disorder Social History Household Members: None Housing: Other Housing Other:: motel Do you presently have visiting nurse or other home services: Yes Alcohol intake: former Patient Tobacco Use Status: Current everyday Tobacco user Tobacco use type: Cigarette Cigarette Packs Per Day: 1 Cigarettes Per Day: 10 e-Cigarette/Vaping Use: Never Used Second Hand Smoke Exposure: Yes Advance Directives Date on File: 07/29/21 service: No Current occupational status: retired and disabled Cognitive needs: No Hearing needs: No Vision needs: Yes (reading glasses) Review of Systems Const All systems reviewed & are unremarkable except as noted in HPI and below Physical Exam Vital Signs: Last Vital Signs Pulse 91 05/14/23 08:37 BP 128/64 05/14/23 08:37 BMI result Body Mass Index 41.0 Const General: no acute distress and anxious Nutritional Appearance: obese Orientation/consciousness: patient oriented x3 Limitations: wheelchair HEENT Head: Yes normal to inspection Ears: hearing grossly normal bilaterally Eyes Sclerae: sclerae normal Pupils: Equal, round and reactive pupils present Neck Neck: Yes normal visual inspection Chest Chest palpation & inspection: normal inspection of the chest Resp Effort & Inspection: normal respiratory effort Auscultation: clear to auscultation bilaterally Cardio Palpation: normal PMI Rate: regular rate Rhythm: regular rhythm Heart sounds: S1 normal heart sound present, S2 normal heart sound present and no murmurs GI Inspection: Yes obesity Palpation (GI): Soft to palpation, nontender and No hepatosplenomegaly present Auscultation: normal bowel sounds Rectal Exam - Male: Yes deferred Skin General skin exam: no rashes or lesions noted Neuro General: patient oriented x3, gait normal and moves all extremities Cranial nerves: Yes Equal, round and reactive pupils present Psych Appearance: grossly normal Mental Status: mental status grossly normal Assessment & Plan Assessment & Plan (1) Vitamin D deficiency: Code(s): E55.9 - Vitamin D deficiency, unspecified (2) History of colon polyps: Comment: TUBULAR ADENOMAS 2008, 2003, 2000 (Dr. Malagon), 06/2012 (Dr. Dang). 09/2019 10 medium to large adenomatous polyps were removed. 06/2021 Eight adenomatous polyps were removed Repeat colonoscopy is advised in 2 year. Code(s): Z86.010 - Personal history of colonic polyps (3) GERD (gastroesophageal reflux disease): Comment: Barretts esophagus GEJ Bx 2008, NEG 2011. Sm hiatal hernia (EGD 10/2008). Code(s): K21.9 - Gastro-esophageal reflux disease without esophagitis (4) IBS (irritable bowel syndrome): Comment: (Hx use of Bentyl-best; Levsin, Donnatol, Librax, Lotronex,Levsin-mixed results). Code(s): K58.9 - Irritable bowel syndrome without diarrhea (5) Chronic constipation: Code(s): K59.09 - Other constipation (6) Chronic abdominal pain: Code(s): R10.9 - Unspecified abdominal pain; G89.29 - Other chronic pain Plan 67 YM with anxiety disorder, hypochondriasis, NIDDM, HTN, GERD, IBS with constipation, diarrhea, diverticulosis followed in GI for colon polyps, generalized abdominal pain, change in bowel habits with chronic constipation and intermittent diarrhea containing mucous. Pt gives a history of unintentional weight loss of 25 lbs over the past several months without a signficant change in his caloric intake. Review of GI clinic notes shows he weighed 275 lbs 2 years ago and his weight during past hospitalization in 2019 was 250 lbs. Patient is extremely anxious and concerned that he has undiagnosed cancer despite multiple reassurances. Abdominal CT scan showed wall thickening of proximal stomach likely artifactual versus gastritis 10/04/19 EGD showed benign nodules in the stomach and duodenum. Same-day colonoscopy revealed diverticulosis and hemorrhoids. Ten medium to large sized adenomatous polyps were removed. Patient was advised repeat colonoscopy in 1 year. Patient express concern regarding malabsorption. Lab evaluation for celiac disease was negative in 2014. Trial of pancreatic enzymes was not helpful. Patient was advised to have a stool test checked for pancreatic elastase to rule out pancreatic insufficiency - he was unable to submit due to transportation issues. Patient was started on Amitiza for chronic constipation - not approved by his insurance. Trulance ordered for constipation. Switched to promethazine for nausea since metoclopramide was not helping Pt with LUQ pain and concerned about pancreatic CA. Pt reassured that pain is suggestive of Abd wall/musculoskeletal etiology. ADvised to take green tea, regular walks and meditation for his symptoms Pt was prescribed Levsin at his request - he was informed that it may not be covered by his insurance Pt not likely to have pancreatic ca since he has gained wt from 250 to 280 lbs over the past 2 yRS 05/14/23 Pt is residing in [place] (a [facility] care facility) Complains of generalized abdominal pain and pain in the middle of the back, legs and groin. Seeing a psychiatrist and was started on Psyche medications which are not working per patient. Concerned about pancreatic problems and was reassured. Pt was advised to schedule an EGD (FU of GERD) and a colonoscopy (FU of multiple colon polyps) FU in 6 months Orders: Orders Pancreatic Elastase-1 Today G89.29 - Other chronic pain, R10.9 - Unspecified abdominal pain Medications: New peg 3350-electrolytes 236-22.74-6.74 -5.86 gram (Golytely) until fecal effluent is clear; do not exceed a total volume [id number] mL 240 mL PO Q10M 4,000 mL 0RF colon prep bisacodyl (Dulcolax (bisacodyl)) Take 2 tablets at 12 pm starting 5 days before colonoscopy 10 mg (2 x 5 mg) PO ONCE 5 days 10 tabs 0RF Coding Level of Care Code Est Pt Level 4 (46637) Diagnoses Vitamin D deficiency E55.9 History of colon polyps Z86.010 GERD (gastroesophageal reflux disease) K21.9 IBS (irritable bowel syndrome) K58.9 Chronic constipation K59.09 Chronic abdominal pain R10.9; G89.29 Time Spent (min) 22
[2023-05-14 08:37] VITALS: BP 128/64; PULSE 91; BMI 41.0
== END 2023-05-14 09:20 | disposition home or self-care (01) ==
PROVIDERS: PCP Internal Medicine; Visit Provider Internal Medicine Gastroenterology
DX: E55.9 Vitamin D deficiency, unspecified (principal); Z86.010 Personal history of colon polyps; K21.9 Gastro-esophageal reflux disease without esophagitis; K58.9 Irritable bowel syndrome, unspecified; K59.09 Other constipation; R10.9 Unspecified abdominal pain; G89.29 Other chronic pain
CPT/HCPCS: 99214

== ENCOUNTER → 2023-05-14 08:25 | Outpatient (BNVA) | payer OTHER, SELFPAY | PROVIDERS: PCP Internal Medicine; Visit Provider Internal Medicine Gastroenterology | DX: K21.9 Gastro-esophageal reflux disease without esophagitis (principal); K58.9 Irritable bowel syndrome, unspecified; K59.09 Other constipation; E55.9 Vitamin D deficiency, unspecified; R10.9 Unspecified abdominal pain; G89.29 Other chronic pain; Z86.010 Personal history of colon polyps | CPT/HCPCS: 99212 ==

== ENCOUNTER 2023-07-31 14:42 | Outpatient (AMB) | payer OTHER, SELFPAY ==
--- NOTE | 2023-07-31 15:02 | A.OFFVIS_ITS ---
Intake Visit Reasons: yearly follow up/PVR Intake Note: Patient is present for PVR/ Urology Med: Tamsulosin Antibiotic Allergy: Penicillins Blood Thinner: none PVR: 23ml Allergies Iodinated Contrast Media [IV CONTRAST] Allergy (Intermediate, Verified 05/14/23 08:29) HIVES aspirin [From Percodan] Allergy (Unknown, Verified 05/14/23 08:29) Unknown codeine [CODEINE] Allergy (Unknown, Verified 05/14/23 08:29) DIFFICULTY BREATHING metformin Allergy (Unknown, Verified 05/14/23 08:29) Diarrhea oxycodone [From PERCOCET] Allergy (Unknown, Verified 05/14/23 08:29) DIFF BREATHING Penicillins [PENICILLINS] Allergy (Unknown, Verified 05/14/23 08:29) DIFFICULTY BREATHING HPI Comments Details: Burton is a pleasant male. He is a patient of Dr. Devlin. Seen for the following urologic conditions - urinary urgency and frequency Yearly update Remains on tamsulosin Effective bladder control PVR low Lower urinary tract symptoms - background type 2 diabetes Prior treatment with tamsulosin PSA - 06/04 1.2, 06/05 0.8 Concurrent diagnosis include diabetes with HbA1c 7.3% - chronic abdominal pain PFSH Medical History (Updated 09/07/23 @ 22:02 by Sam Calderon MD) Tinea cruris Sinusitis Bilateral leg cramps Zahida onychomycosis LUQ abdominal pain Nausea Physical deconditioning Adult failure to thrive Chronic back pain Dark stools Cough Multiple joint pain Bilateral hand numbness Headache History of COVID-19 (~02/27/21) Anemia Flank pain BPH (benign prostatic hyperplasia) Pulmonary nodule, right Hypercholesterolemia Type 2 diabetes mellitus with hyperglycemia Anxiety and depression Obesity (BMI 30-39.9) Weight loss, unintentional Bilateral arm fractures History of drug abuse Hypertension History of colon polyps Chronic constipation Surgical History (Updated 09/01/23 @ 14:14 by Sandie Nair) S/P cholecystectomy Hx of esophagogastroduodenoscopy (11/18/11) Hx of colonoscopy (07/06/12) Family History Father Kidney tumor Heart attack Mother Kidney failure Lung cancer Diabetes CHF (congestive heart failure) Maternal Grandmother Gallbladder gangrene Sister Arthritis High blood pressure High cholesterol Cirrhosis of liver Sister No problems noted. Brother Heart attack High cholesterol Sister CHF (congestive heart failure) Diabetes Other Mental health disorder Social History Household Members: None Housing: Other Housing Other:: motel Do you presently have visiting nurse or other home services: Yes Alcohol intake: former Patient Tobacco Use Status: Current everyday Tobacco user Tobacco use type: Cigarette Cigarette Packs Per Day: 1 Cigarettes Per Day: 8 Smoked in Last 30 Days: Yes e-Cigarette/Vaping Use: Never Used Second Hand Smoke Exposure: Yes Use of substances other than those prescribed or required for medical reasons: No Are you DNR?: No Advance Directives: No Advance Directives Information Provided: Yes Advance Directives Date on File: 07/29/21 service: No Current occupational status: retired and disabled Cognitive needs: No Hearing needs: No Vision needs: Yes (reading glasses) Review of Systems Const Denies chills and Denies fever(s) Card Reports no additional complaints and Denies syncope Resp Denies cough GI Denies abdominal pain and Denies heartburn Reports as per HPI and Denies change in libido Neuro Denies syncope Psych Denies change in libido Endo Denies change in libido Physical Exam Const General: cooperative, healthy appearing, comfortable and no acute distress Orientation/consciousness: patient oriented x3 HEENT Face and sinus: Yes normal facial exam Mouth: moist mucous membranes Neck Neck: Yes normal visual inspection, Yes full ROM and Yes trachea midline Chest Chest palpation & inspection: normal inspection of the chest Resp Effort & Inspection: normal respiratory effort, able to speak in complete sentences and no respiratory distress GI Inspection: Yes normal to inspection Back/Spine/Pelvis Cervical Spine: normal cervical lordosis Thoracic/Lumbar Spine: thoracic and lumbar spine normal to inspection Skin General skin exam: no rashes or lesions noted Neuro General: patient oriented x3, gait normal, tone normal and moves all extremities Extrem General: Yes normal to inspection and Yes capillary refill normal Office Procedures Post Void Residual Post Residual Void Post Void Residual (PVR): 23 [id number]-[id number] Void Residual by ultrasound Results AMB Urinalysis, Automated UA Leukoctes 0 Pham/uL Last Edit by Jona Lowe [place] on 07/31/23 15:18 UA Nitrite Negative Last Edit by Jona Lowe [facility] on 07/31/23 15:18 UA Urobilinogen 0.2 mg/dL Last Edit by Jona Lowe [facility] on 07/31/23 15:1 8 UA Protein 0 mg/dL Last Edit by Jona Lowe [facility] on 07/31/23 15:18 UA pH 6.0 Last Edit by Jona Lowe [facility] on 07/31/23 15:18 UA Blood 0 Eliot/uL Last Edit by Jona Lowe [facility] on 07/31/23 15:18 UA Specific Mcdowell 1.010 Last Edit by Jona Lowe [facility] on 07/31/23 15: 18 UA Ketone Negative Last Edit by Jona Lowe [place] on 07/31/23 15:18 UA Bilirubin 1 mg/dL Last Edit by Jona Lowe [facility] on 07/31/23 15:18 UA Glucose 0 mg/dL Last Edit by Jona Lowe [facility] on 07/31/23 15:18 Results Reviewed Results Reviewed: Laboratory Last Values Urine pH (Auto) 6.0 07/31/23 15:03 Specific Mcdowell (Auto) 1.010 07/31/23 15:03 Urine Protein (Auto) 0 mg/dL 07/31/23 15:03 Glucose (UA)(Auto) 0 mg/dL 07/31/23 15:03 Urine Ketones (Auto) Negative 07/31/23 15:03 Urine Blood (Auto) 0 Eliot/uL 07/31/23 15:03 Urine Nitrite (Auto) Negative 07/31/23 15:03 Urine Bilirubin (Auto) 1 mg/dL 07/31/23 15:03 Urine Urobilinogen (Auto) 0.2 mg/dL 07/31/23 15:03 Leukocyte Esterase (Auto) 0 Pham/uL 07/31/23 15:03 Assessment & Plan Assessment & Plan (1) Bladder outlet obstruction: Code(s): N32.0 - Bladder-neck obstruction Category: Medical Plan 12 month follow-up PSA Orders: Orders AMB Urinalysis Automated 07/31/23 Z13.9 - Encounter for screening, unspecified AMB Post Void Residual by ultrasound 07/31/23 N39.8 - Other specified disorders of urinary system Medications: New sildenafil administer 60 minutes before intended activity 100 mg PO ONCE PRN 30 tabs 1RF sexual activity 20 days E11.69 - Type 2 diabetes mellitus with other specified complication, N52.1 - Erectile dysfunction due to diseases classified elsewhere Patient Instructions: Imaging studies, laboratory and physical exam results were discussed and reviewed in detail. No major barriers to patient understanding were identified. An opportunity to ask questions regarding the treatment plan was provided. All questions were answered. The patient expressed understanding and agreement with the above treatment plan. The patient is aware they should contact our office by phone for worsening of their current condition or the appearance of new urologic symptoms. Compliance is encouraged with any medications and followup testing that is ordered. It is a privilege to participate in the urologic care of your patient. If you have any questions or concerns regarding treatment for the above conditions, or other urologic issues, please do not hesitate to contact me. The office telephone contact is [phone]. This note is constructed using voice recognition software. While every effort has been made to ensure accuracy production reproduction manager errors may have been included. Yours sincerely, Dr Sam Calderon MD, [facility] - Urology Providers of Expert, Compassionate Care for the Genitourinary System Coding Level of Care Code Est Pt Level 4 (85616) Diagnoses Bladder outlet obstruction N32.0 CPT Codes Post Residual Void - PVR CPT Code: 42929-Nrfg Void Residual by ultrasound ([id number])
== END 2023-07-31 15:42 | disposition home or self-care (01) ==
LOC: HO.HUSH 14:42
PROVIDERS: PCP Internal Medicine; Visit Provider Urology
DX: N32.0 Bladder-neck obstruction (principal)
CPT/HCPCS: 99213

== ENCOUNTER → 2023-07-31 14:42 | Outpatient (BNVA) | payer OTHER, SELFPAY | PROVIDERS: PCP Internal Medicine; Visit Provider Urology | DX: N32.0 Bladder-neck obstruction (principal) | CPT/HCPCS: 51798; 81003; 99212 ==

== ENCOUNTER 2023-08-24 13:02 | Day surgery (SDC) | payer OTHER, SELFPAY ==
--- NOTE | 2023-08-24 13:17 | P.CONAN_ITS ---
[facility] Active Problems Active Problems: All Active Problems Chronic abdominal pain (Acute) Epistaxis (Acute) Morbid obesity (Acute) Hypomagnesemia (Acute) Rhinitis (Acute) Constipation (Acute) Onychomycosis (Acute) Back pain (Acute) Generalized anxiety disorder (Acute) Homeless (Acute) Vitamin D deficiency (Acute) History of colon polyps (Acute) BPH (benign prostatic hyperplasia) (Acute) Hypercholesterolemia (Acute) Type 2 diabetes mellitus with hyperglycemia (Acute) Obesity (BMI 30-39.9) (Acute) Hypertension (Acute) Tobacco abuse (Acute) Low back pain (Acute) Cervical spondylosis (Acute) IBS (irritable bowel syndrome) (Acute) GERD (gastroesophageal reflux disease) (Acute) Chronic constipation (Acute) Past Medical History Medical History Adult failure to thrive Anemia Anxiety and depression Bilateral arm fractures Bilateral hand numbness Bilateral leg cramps BPH (benign prostatic hyperplasia) Zahida onychomycosis Chronic back pain Chronic constipation Cough Dark stools Flank pain Headache History of colon polyps History of COVID-19 (~02/27/21) History of drug abuse Hypercholesterolemia Hypertension LUQ abdominal pain Multiple joint pain Nausea Obesity (BMI 30-39.9) Physical deconditioning Pulmonary nodule, right Sinusitis Tinea cruris Type 2 diabetes mellitus with hyperglycemia Weight loss, unintentional Family History Family History Father Kidney tumor Heart attack Mother Kidney failure Lung cancer Diabetes CHF (congestive heart failure) Maternal Grandmother Gallbladder gangrene Sister Arthritis High blood pressure High cholesterol Cirrhosis of liver Sister No problems noted. Brother Heart attack High cholesterol Sister CHF (congestive heart failure) Diabetes Other Mental health disorder Family history of problems with anesthesia: No Surgical History Surgical History S/P cholecystectomy Hx of esophagogastroduodenoscopy (11/18/11) Hx of colonoscopy (07/06/12) History of Problems with Anesthesia: No Social History Social History Household Members: None Housing: Other Housing Other:: motel Do you presently have visiting nurse or other home services: Yes Alcohol intake: former Patient Tobacco Use Status: Current everyday Tobacco user Tobacco use type: Cigarette Cigarette Packs Per Day: 1 Cigarettes Per Day: 10 e-Cigarette/Vaping Use: Never Used Second Hand Smoke Exposure: Yes Advance Directives: No Advance Directives Information Provided: Yes Advance Directives Date on File: 07/29/21 service: No Current occupational status: retired and disabled Cognitive needs: No Hearing needs: No Vision needs: Yes (reading glasses) Meds Allergies Allergy/AdvReac Type Severity Reaction Status Date / Time Iodinated Contrast Media Allergy Intermediate HIVES Verified 05/14/23 08:29 [IV CONTRAST] aspirin [From Percodan] Allergy Unknown Unknown Verified 05/14/23 08:29 codeine [CODEINE] Allergy Unknown DIFFICULTY Verified 05/14/23 08:29 BREATHING metformin Allergy Unknown Diarrhea Verified 05/14/23 08:29 oxycodone [From PERCOCET] Allergy Unknown DIFF Verified 05/14/23 08:29 BREATHING Penicillins [PENICILLINS] Allergy Unknown DIFFICULTY Verified 05/14/23 08:29 BREATHING Home Medications ?Medication ?Instructions ?Recorded ?Confirmed ?Last Taken ?Type acetaminophen 325 mg tablet 325 mg PO Q8H PRN Pain 10/16/22 05/14/23 Unknown History clotrimazole 1 % topical cream 1 appl topical BID PRN jock itch / 10/16/22 05/14/23 Unknown History toe fungus fluticasone propionate 50 1 spray intranasal DAILY PRN 10/16/22 05/14/23 Unknown History mcg/actuation nasal Allergy Symptoms spray,suspension (Flonase Allergy Relief) magnesium oxide 400 mg (241.3 mg 400 mg PO DAILY 10/16/22 05/14/23 10/15/22 History magnesium) tablet omeprazole 40 mg capsule,delayed 40 mg PO DAILY@0630 10/16/22 05/14/23 10/15/22 History release semaglutide 0.25 mg or 0.5 mg (2 0.25 mg subcut TU@0900 10/16/22 05/14/23 10/14/22 History mg/3 mL) subcutaneous pen injector (Ozempic) Exam Airway Mallampati Class: II (missing multiole teeth) TM Dist: >3cm Neck ROM: Full Heart: rrr Lungs: cta Assessment and Plan Assessment Anesthesia Assessment: Anesthesia Plan Discussed and Chart Reviewed Final Anesthetic Review Family History of Problems with Anesthesia: No History of Problems with Anesthesia: No NPO: Yes ASA Class: III Final Preanesthetic Review: No Changes in Pt Med Stat, Meds/Allgs Chart Reviewed and Consent Obtained/Reviewed Patient Risk: Intermediate Procedure Risk: Intermediate Anesthetic Plan Anesthetic Plan: MAC: Disposition: Standard PACU
[2023-08-24 13:18] VITALS: BP 148/98; PULSE 90; RESP 16; TEMP 36.4; O2SAT 97; BMI 43.3
[2023-08-24 13:32] LABS: Glucose, Whole Blood 153 mg/dL (60-115)
--- NOTE | 2023-08-24 14:08 | P.HPSUR_ITS ---
Pre-Procedural Eval Section A - 24 Hr Update-Section A only Date of Service: 08/24/23 The patient has been examined within 24 hours of the surgical procedure. The History & Physical has been completed within 30 days and I have reviewed it.: No Section B - Complete if H&P > 30 days Chief Complaint: Surveillance of colon polyps, GERD, abdominal pain Relevant Family History (Specify if Yes): No Relevant Social History: Tobacco Use Present Medications: see Short Stay Collaborative assessment Medical History: Significant History (History of colon polyps History of COVID- 19 (~02/27/21) History of drug abuse Hypercholesterolemia Hypertension LUQ abdominal pain Multiple joint pain Nausea Obesity (BMI 30-39.9) Physical deconditioning Pulmonary nodule, right Sinusitis) History of Previous Operations: Relevant previous surgery/procedure and date(s) (S/P cholecystectomy Hx of esophagogastroduodenoscopy (11/18/11) Hx of colonoscopy (07/06/12)) Allergies: Allergies Allergy/AdvReac Type Severity Reaction Status Date / Time Iodinated Contrast Media Allergy Intermediate HIVES Verified 05/14/23 08:29 [IV CONTRAST] aspirin [From Percodan] Allergy Unknown Unknown Verified 05/14/23 08:29 codeine [CODEINE] Allergy Unknown DIFFICULTY Verified 05/14/23 08:29 BREATHING metformin Allergy Unknown Diarrhea Verified 05/14/23 08:29 oxycodone [From PERCOCET] Allergy Unknown DIFF Verified 05/14/23 08:29 BREATHING Penicillins [PENICILLINS] Allergy Unknown DIFFICULTY Verified 05/14/23 08:29 BREATHING Review of Systems Sugical H&P ROS: Negative: Constitution, Cardiovascular, Respiratory and Gastrointestinal Exam Surgical H&P Exam: Normal: Heart, Normal: Lungs, Normal: Extremities and Normal: Abdomen Plan Diagnosis/Plan: Unchanged I have reviewed the history and physical and performed a pertinent physical examination on my patient. No changes have occurred unless specified. Time Spent With Patient Time: Total time managing care of this patient today ____ minutes.
[2023-08-24] MEDS: Lactated Ringers 1,000 ML 100 ML IVCONT (14:15)
--- NOTE | 2023-08-24 14:31 | P.OPN-COLO_ITS ---
Colonoscopy Operative Note Operative Note Date of Service: 08/24/23 Narrative: FLEXIBLE TRANSORAL UPPER GASTROINTESTINAL ENDOSCOPY WITH BIOPSIES AND COLONOSCOPY TILL CECUM WITH BIOPSIES AND SNARE POLYPECTOMY Pre-op diagnosis: Colon cancer screening, GERD Post-op diagnosis: Gastritis, Gastric polyp, Colon Polyps, Diverticulosis, hemorrhoids Endoscopist:? Yana Nye MD Anesthesia:?MAC UPPER ENDOSCOPY Consent: Indications for the procedure and potential complications of bleeding, perforation, reaction to medications and missed diagnosis were discussed with the patient and informed consent was obtained. Instrument: Olympus GIF H 190 mid size upper endoscope Monitoring: Vital signs and clinical assessment, continuous EKG monitoring, Pulse oximetry, Carbon Dioxide monitoring and blood pressure monitoring were done throughout the procedure. Procedure: The patient was placed in the left lateral decubitis position and pre-procedure medications were administered and a bite block was placed. The endoscope was inserted into the mouth and advanced under direct vision to the third part of duodenum. A careful inspection was made as the upper endoscope was withdrawn including a retroflexed examination of the proximal stomach; Findings and interventions are described below. Findings: Larynx: Normal Esophagus: Tortuous esophagus with increased tertiary contractions without stricture or ring. GE junction at 40 cms. No esophagitis or Hughes's. Stomach:?Two 1 cms calcified benign appearing nodules in the fundus unchanged from last EGD (benign on biopsies obtained during last EGD). Moderate diffuse gastric erythema. Biopsies were obtained. Grade 2 flap valve on retroflexed examination of the cardia. Duodenum:?A 7-8 mm benign appearing nodule in the apex of the bulb (Biopsies obtained during past EGD showed hyperplastic Josiah's glands). Normal descending duodenum Intervention: Biopsies as noted above COLONOSCOPY PROCEDURE NOTE Instrument: Olympus CF H 190 L variable stiffness adult colonoscope Monitoring: Vital signs and clinical assessment, intermittent blood pressure monitoring, continuous EKG monitoring, Pulse oximetry and Carbon Dioxide monitoring were done throughout the procedure. Please see anesthesia flowsheet. Colon withdrawl time was 21 minutes. Procedure: The patient was placed in the left lateral decubitis position and pre-procedure medications were administered. After a digital rectal examination of the ano-rectum, the video colonoscope was inserted into the rectum and advanced through the colon to the cecum. The colonoscope was slowly withdrawn in a retrograde panoramic fashion and the colon mucosa was carefully examined including a retroflexed view of the rectum. Findings and interventions are described below. Procedure Difficulty: without difficulty Findings: Terminal Ileum: Not evaluated Cecum: Normal Ascending Colon: A 10-12 mm sessile polyp in the distal AC - removed with a hot snare Transverse Colon: Normal Descending Colon: Moderate diverticulosis Sigmoid Colon: Moderate diverticulosis Rectum: Normal Ano-rectum: Moderate internal hemorrhoids Colon preparation: Good after some irrigation. [place] Bowel Preparation Scale Right colon; 2 Transverse colon: 2 Left colon; 2 (0 = Unprepared colon segment with mucosa not seen due to solid stool that cannot be cleared. 1 = Portion of mucosa of the colon segment seen, but other areas of the colon segment not well seen due to staining, residual stool and/or opaque liquid. 2 = Minor amount of residual staining, small fragments of stool and/or opaque liquid, but mucosa of colon segment seen well. 3 = Entire mucosa of colon segment seen well with no residual staining, small fragments of stool or opaque liquid) Impression and Post Procedure Diagnosis: Endoscopy Findings: ESOPHAGUS: Tortuous esophagus with increased tertiary contractions without stricture or ring. STOMACH: Two 1 cms calcified benign appearing nodules in the fundus unchanged from last EGD (benign on biopsies obtained during last EGD). Moderate diffuse gastric erythema. Biopsies were obtained. DUODENUM: ?A 7-8 mm benign appearing nodule in the apex of the bulb (Biopsies obtained during past EGD showed hyperplastic Josiah's glands). Colonoscopy Findings: One medium sized polyp was detected removed Moderate diverticulosis seen in the left colon Moderate hemorrhoids on retroflexed exam. Plan: Pt has a FU appointment on 09/10/[address] Nye Repeat Colonoscopy in 3 years if polyps are adenomatous and due to a hx of multiple adenomatous polyps. Above findings were reviewed with the patient and relevant handouts were given and the discharge area. BIOPSIES SHOWED: A. Stomach, antrum, biopsy: Reactive gastropathy with background mild chronic inactive inflammation; no Helicobacter organisms seen. B. Colon, ascending, polypectomy: Fragments of inflammatory polyp Letter sent to patient advising repeat colonoscopy in 3 years.
[2023-08-24 15:09] VITALS: BP 135/88; PULSE 85; RESP 16; TEMP 36.8; O2SAT 95
[2023-08-24 15:24] VITALS: BP 143/93; PULSE 78; RESP 20; TEMP 36.6; O2SAT 97
== END 2023-08-24 15:57 | disposition home or self-care (01) ==
PROVIDERS: Visit Provider Internal Medicine Gastroenterology
PROC: (CPT 45385; principal; 2023-08-24 14:40)
DX: Z12.11 Encounter for screening for malignant neoplasm of colon (principal); K51.40 Inflammatory polyps of colon without complications; K57.30 Diverticulosis of large intestine without perforation or abscess without bleeding; K64.8 Other hemorrhoids; Z86.010 Personal history of colon polyps; K21.9 Gastro-esophageal reflux disease without esophagitis; K22.89 Other specified disease of esophagus; K29.70 Gastritis, unspecified, without bleeding; K31.89 Other diseases of stomach and duodenum; I10 Essential (primary) hypertension; E11.9 Type 2 diabetes mellitus without complications; K58.1 Irritable bowel syndrome with constipation; Z79.899 Other long term (current) drug therapy; Z88.0 Allergy status to penicillin; Z88.5 Allergy status to narcotic agent; Z88.8 Allergy status to other drugs, medicaments and biological substances; Z91.041 Radiographic dye allergy status
CPT/HCPCS: 45385; 43239; 82947; 88305; 88313; 88342; J2704

== ENCOUNTER → 2023-08-24 13:02 | Outpatient (BNV) | payer OTHER, SELFPAY | PROVIDERS: Visit Provider Internal Medicine Gastroenterology | DX: Z12.11 Encounter for screening for malignant neoplasm of colon (principal); K63.5 Polyp of colon; K57.90 Diverticulosis of intestine, part unspecified, without perforation or abscess without bleeding; K64.8 Other hemorrhoids; K21.9 Gastro-esophageal reflux disease without esophagitis; K29.70 Gastritis, unspecified, without bleeding; K31.7 Polyp of stomach and duodenum | CPT/HCPCS: 43239; 45385 ==

== ENCOUNTER 2024-09-01 10:16 | Outpatient (AMB) | payer OTHER, SELFPAY ==
--- NOTE | 2024-09-01 10:28 | A.OFFVIS_ITS ---
Intake Visit Reasons: 1yr/PSA(psa?) Intake Note: Patient is present for PVR/ Urology Med: Tamsulosin,SILDENAFIL Antibiotic Allergy: Penicillins Blood Thinner: none [employer] Operator Required: No Allergies Iodinated Contrast Media (IV CONTRAST) Allergy (Intermediate, Verified 09/01/24 10:29) HIVES aspirin (From Percodan) Allergy (Unknown, Verified 09/01/24 10:29) Unknown codeine (CODEINE) Allergy (Unknown, Verified 09/01/24 10:29) DIFFICULTY BREATHING metformin Allergy (Unknown, Verified 09/01/24 10:29) Diarrhea oxycodone (From PERCOCET) Allergy (Unknown, Verified 09/01/24 10:29) DIFF BREATHING Penicillins (PENICILLINS) Allergy (Unknown, Verified 09/01/24 10:29) DIFFICULTY BREATHING HPI Comments Details: Burton is a pleasant male. He is a patient of Dr. Devlin. Seen for the following urologic conditions - urinary urgency and frequency Yearly update Remains on tamsulosin with sildenafil for erections Effective bladder control PVR low Double dose sildenafil for ED Rx provided Lower urinary tract symptoms - background type 2 diabetes Prior treatment with tamsulosin PSA - 06/04 1.2, 06/05 0.8, 08/07 1.3 Concurrent diagnosis include diabetes with HbA1c 7.3% - chronic abdominal pain [facility] Medical History (Updated 09/07/23 @ 22:02 by Sam Calderon MD) Tinea cruris Sinusitis Bilateral leg cramps Zahida onychomycosis LUQ abdominal pain Nausea Physical deconditioning Adult failure to thrive Chronic back pain Dark stools Cough Multiple joint pain Bilateral hand numbness Headache History of COVID-19 (~02/27/21) Anemia Flank pain BPH (benign prostatic hyperplasia) Pulmonary nodule, right Hypercholesterolemia Type 2 diabetes mellitus with hyperglycemia Anxiety and depression Obesity (BMI 30-39.9) Weight loss, unintentional Bilateral arm fractures History of drug abuse Hypertension History of colon polyps Chronic constipation Surgical History (Updated 09/01/23 @ 14:14 by Sandie Nair) S/P cholecystectomy Hx of esophagogastroduodenoscopy (11/18/11) Hx of colonoscopy (07/06/12) Family History Father Kidney tumor Heart attack Mother Kidney failure Lung cancer Diabetes CHF (congestive heart failure) Maternal Grandmother Gallbladder gangrene Sister Arthritis High blood pressure High cholesterol Cirrhosis of liver Sister No problems noted. Brother Heart attack High cholesterol Sister CHF (congestive heart failure) Diabetes Other Mental health disorder Social History Household Members: None Housing: Other Housing Other:: motel Do you presently have visiting nurse or other home services: Yes Alcohol intake: former Patient Tobacco Use Status: Current everyday Tobacco user Tobacco use type: Cigarette Cigarette Packs Per Day: 1 Cigarettes Per Day: 8 e-Cigarette/Vaping Use: Never Used Second Hand Smoke Exposure: Yes Advance Directives Date on File: 07/29/21 service: No Current occupational status: retired and disabled Cognitive needs: No Hearing needs: No Vision needs: Yes (reading glasses) Review of Systems Const Denies chills and Denies fever(s) Card Reports no additional complaints and Denies syncope Resp Denies cough GI Denies abdominal pain and Denies heartburn Reports as per HPI and Denies change in libido Neuro Denies syncope Psych Denies change in libido Endo Denies change in libido Physical Exam Const General: cooperative, healthy appearing, comfortable and no acute distress Orientation/consciousness: patient oriented x3 HEENT Face and sinus: Yes normal facial exam Mouth: moist mucous membranes Neck Neck: Yes normal visual inspection, Yes full ROM and Yes trachea midline Chest Chest palpation & inspection: normal inspection of the chest Resp Effort & Inspection: normal respiratory effort, able to speak in complete sentences and no respiratory distress GI Inspection: Yes normal to inspection Back/Spine/Pelvis Cervical Spine: normal cervical lordosis Thoracic/Lumbar Spine: thoracic and lumbar spine normal to inspection Skin General skin exam: no rashes or lesions noted Neuro General: patient oriented x3, gait normal, tone normal and moves all extremities Extrem General: Yes normal to inspection and Yes capillary refill normal Results AMB Urinalysis, Automated UA Leukoctes 0 Pham/uL Last Edit by NIURKA Alex on 09/01/24 11:17 UA Nitrite Negative Last Edit by Remberto Ramon [facility] on 09/01/24 11:17 UA Urobilinogen 0.2 mg/dL Last Edit by Remberto Ramon [facility] on 09/01/24 11:1 7 UA Protein 15 mg/dL Last Edit by Remberto Ramon [facility] on 09/01/24 11:17 UA pH 6.0 Last Edit by Remberto Ramon [facility] on 09/01/24 11:17 UA Blood 0 Eliot/uL Last Edit by Remberto Ramon [facility] on 09/01/24 11:17 UA Specific [place] 1.015 Last Edit by Remberto Ramon [facility] on 09/01/24 11: 17 UA Ketone Negative Last Edit by Remberto Ramon [facility] on 09/01/24 11:17 UA Bilirubin 0 mg/dL Last Edit by Remberto Ramon [facility] on 09/01/24 11:17 UA Glucose 0 mg/dL Last Edit by Remberto Ramon [facility] on 09/01/24 11:17 Assessment & Plan Assessment & Plan (1) BPH (benign prostatic hyperplasia): Code(s): N40.0 - Benign prostatic hyperplasia without lower urinary tract symptoms Category: Medical (2) Bladder outlet obstruction: Code(s): N32.0 - Bladder-neck obstruction Category: Medical Plan 12 month follow-up Orders: Orders AMB Urinalysis Automated Today Z13.9 - Encounter for screening, unspecified Medications: Changed From sildenafil administer 60 minutes before intended activity 100 mg PO ONCE 20 days PRN 30 tabs 1RF sexual activity E11.69 - Type 2 diabetes mellitus with other specified complication, N52.1 - Erectile dysfunction due to diseases classified elsewhere To sildenafil administer 60 minutes before intended activity - may take up to 2 tabs 100 mg PO ONCE 30 days PRN 30 tabs 1RF sexual activity E11.69 - Type 2 diabetes mellitus with other specified complication, N52.1 - Erectile dysfunction due to diseases classified elsewhere Refilled sildenafil administer 60 minutes before intended activity - may take up to 2 tabs 100 mg PO ONCE 30 days PRN 30 tabs 1RF sexual activity E11.69 - Type 2 diabetes mellitus with other specified complication, N52.1 - Erectile dysfunction due to diseases classified elsewhere sildenafil administer 60 minutes before intended activity - may take up to 2 tabs 100 mg PO ONCE 30 days PRN 30 tabs 1RF sexual activity E11.69 - Type 2 diabetes mellitus with other specified complication, N52.1 - Erectile dysfunction due to diseases classified elsewhere sildenafil administer 60 minutes before intended activity - may take up to 2 tabs 100 mg PO ONCE 30 days PRN 30 tabs 1RF sexual activity E11.69 - Type 2 diabetes mellitus with other specified complication, N52.1 - Erectile dysfunction due to diseases classified elsewhere sildenafil administer 60 minutes before intended activity - may take up to 2 tabs 100 mg PO ONCE PRN 30 tabs 1RF sexual activity 30 days E11.69 - Type 2 diabetes mellitus with other specified complication, N52.1 - Erectile dysfunction due to diseases classified elsewhere Patient Instructions: This note is constructed using voice recognition software. While every effort has been made to ensure accuracy customer contact sales associate errors may have been included. Imaging studies, laboratory and physical exam results were discussed and reviewed in detail. No major barriers to patient understanding were identified. An opportunity to ask questions regarding the treatment plan was provided. All questions were answered. The patient expressed understanding and agreement with the above treatment plan. The patient is aware they should contact our office by phone for worsening of their current condition or the appearance of new urologic symptoms. Compliance is encouraged with any medications and followup testing that is ordered. It is a privilege to participate in the urologic care of your patient. If you have any questions or concerns regarding treatment for the above conditions, or other urologic issues, please do not hesitate to contact me. The office telephone contact is [phone]. Sincerely, Dr Sam Calderon MD, [facility] - Urology Compassionate Specialist Care for the Genitourinary System Coding Level of Care Code Est Pt Level 4 (22181) Complex EM visit Add On G2211 Diagnoses BPH (benign prostatic hyperplasia) N40.0 Bladder outlet obstruction N32.0
== END 2024-09-01 11:07 | disposition home or self-care (01) ==
LOC: HO.HUSH 10:17
PROVIDERS: Visit Provider Urology
DX: N40.0 Benign prostatic hyperplasia without lower urinary tract symptoms (principal); N32.0 Bladder-neck obstruction; Z13.9 Encounter for screening, unspecified
CPT/HCPCS: 99214; G2211

== ENCOUNTER → 2024-09-01 10:16 | Outpatient (BNVA) | payer OTHER, SELFPAY | PROVIDERS: Visit Provider Urology | DX: N40.0 Benign prostatic hyperplasia without lower urinary tract symptoms (principal); E11.69 Type 2 diabetes mellitus with other specified complication; N32.0 Bladder-neck obstruction; N52.1 Erectile dysfunction due to diseases classified elsewhere | CPT/HCPCS: 81003; 99212 ==